=== PATIENT | female | born 1970 | race African-American/Black ===

== ENCOUNTER 2019-12-04 23:14 | Emergency (ER) | payer OTHER ==
[2019-12-04 23:35] VITALS: BP 140/73; PULSE 69; BMI 58.4
[2019-12-04 23:46] VITALS: TEMP 98.1
--- NOTE | 2019-12-05 00:06 | PDOC ---
History of Present Illness - General Chief Complaint: Chest Pain Stated Complaint: DIFFICULTY BREATHING - History of Present Illness Initial Comments: 49 YOF h/o asthma, CHF, diabetes, pneumonia, GERD, presents with CP and SOB of 1 day duration. Patient reports that she has been hospitalized 7 times since August for pneumonia. Each time she was tested for COVID-19 and found to be negative. She was d/cd to [facility] for subacute rehab following her most recent hospitalization. Today after dinner she began to experience CP and SOB and EMS was called. Per EMS patient received a CXR earlier today which was normal. EMS performed EKG in field which was wnl. Vitals at the scene were BP 150s/90s, HR 70, O2 100% 2L O2 via nasal canula, patient did not appear to be tachypneic according to EMS. Given her history and symptoms she was brought into the ED for evaluation. Patient also reports some nausea and chills and chronic leg pain. She denies fever. Constitutional: No Weight Change, No Fever, No Night Sweats, No Fatigue, No Malaise ENT/Mouth: No Hearing Changes, No Ear Pain, No Nasal Congestion, No Sinus Pain, No Hoarseness, No sore throat, No Rhinorrhea, No Swallowing Difficulty Eyes: No Eye Pain, No Swelling, No Redness, No Foreign Body, No Discharge, No Vision Changes Cardiovascular: No Chest Pain, No SOB, No PND, No Dyspnea on Exertion, No Orthopnea, No Claudication, No Edema, No Palpitations Respiratory: Yes Cough, Yes Sputum, No Wheezing, No Smoke Exposure, Yes Dyspnea Gastrointestinal: Yes Nausea, No Vomiting, No Diarrhea, No Constipation, No Pain, No Heartburn, No Anorexia, No Dysphagia, No Hematochezia, No Melena, No Flatulence, No Jaundice Genitourinary: No Dysmenorrhea, No DUB, No Dyspareunia, No Dysuria, No Urinary Frequency, No Hematuria, No Urinary Incontinence, No Urgency, No Flank Pain, No Urinary Flow Changes, No Hesitancy Musculoskeletal: No Arthralgias, No Myalgias, No Joint Swelling, No Joint Stiffness, No Back Pain, No Neck Pain, No Injury History Skin: No Skin Lesions, No Pruritis, No Hair Changes, No Breast/Skin Changes, No Nipple Discharge Neuro: No Weakness, No Numbness, No Paresthesias, No Loss of Consciousness, No Syncope, No Dizziness, No Headache, No Coordination Changes, No Recent Falls Psych: No Anxiety/Panic, No Depression, No Insomnia, No Personality Changes, No Delusions, No Rumination, No SI/HI/AH/VH, No Social Issues, No Memory Changes, No Violence/Abuse Hx., No Eating Concerns Heme/Lymph: No Bruising, No Bleeding, No Transfusions History, No Lymphadenopathy Endocrine: No Polyuria, No Polydipsia, No Temperature Intolerance 12/05/19 00:06 Past History - Medical History Allergies/Adverse Reactions: Allergies Allergy/AdvReac Type Severity Reaction Status Date / Time No Known Allergies Allergy Unverified 12/04/19 23:16 - Psycho-Social/Smoking History Smoking History: Never smoked Have you smoked in the past 12 months: No Information on smoking cessation initiated: No - Substance Abuse Hx (Audit-C & DAST Scrn) How often the patient has a drink containing alcohol: Never Score: In Men: 4 or > Positive; In Women: 3 or > Positive: 0 Screen Result (Pos requires Nsg. Audit-10AR): Negative In the last yr the pt used illegal drug/Rx for NonMed reason: No Score: Yes response is considered Positive: 0 Screen Result (Positive result requires Nsg. DAST-10): Negative *Physical Exam - Vital Signs Last Vital Signs Temp Pulse Resp BP Pulse Ox 98.1 F 69 20 140/73 98 12/04/19 23:46 12/04/19 23:16 12/04/19 23:16 12/04/19 23:16 12/04/19 23:16 - Physical Exam General Appearance: Yes: Nourished, Appropriately Dressed, Moderate Distress, Obese HEENT: positive: EOMI, BOB, Normal Voice Neck: positive: Trachea midline, Normal Thyroid Respiratory/Chest: positive: Chest Tender, Lungs Clear, Normal Breath Sounds, Other (Patient coughs intermittently producing sputum that is clear. ) Cardiovascular: positive: Regular Rhythm, Regular Rate, S1, S2 Gastrointestinal/Abdominal: positive: Normal Bowel Sounds, Flat, Soft Musculoskeletal: positive: Normal Inspection Extremity: positive: Normal Capillary Refill, Normal Inspection, Normal Range of Motion Integumentary: positive: Normal Color, Dry, Warm ED Treatment Course - LABORATORY CBC & Chemistry Diagram: 12/05/19 00:19 12/05/19 00:19 Medical Decision Making - Medical Decision Making 49 YOF h/o asthma, CHF, diabetes, pneumonia, GERD, presents with CP and SOB of 1 day duration. Patient reports that she has been hospitalized 7 times since August for pneumonia. Each time she was tested for COVID-19 and found to be negative. She was d/cd to [facility] for subacute rehab following her most recent hospitalization. Today after dinner she began to experience CP and SOB and EMS was called. Per EMS patient received a CXR earlier today which was normal. EMS performed EKG in field which was wnl. Vitals at the scene were BP 150s/90s, HR 70, O2 100% 2L O2 via nasal canula, patient did not appear to be tachypneic according to EMS. Given her history and symptoms she was brought into the ED for evaluation. Patient also reports some nausea and chills and chronic leg pain. She denies fever. Vitals were stable on arrival. Patient is afebrile Exam reveals patient who is coughing intermittently producing sputum that is clear. ddx includes but is not limited to: pneumonia, CHF exacerbation, asthma exacerbation, GERD. Plan: CBC, CMP, COVID swab, cardiac profile, CXR, EKG, BNP, heart score. Reassess: patients labs and EKG were wnl, her CXR revealed significant cardiomegaly consistent with previous diagnosis of heart failure. heart score is 2. Dispo: will discharge patient back to nursing facility with return precautions. 12/05/19 02:09 Discharge - Discharge Information Problems reviewed: Yes Clinical Impression/Diagnosis: Cough Condition: Good - Admission No - Follow up/Referral Referrals: Kathy Langford MD [Primary Care Provider] - - Patient Discharge Instructions Patient Printed Discharge Instructions: DI for Chest Pain Additional Instructions: You were seen in the emergency department for shortness of breath and chest pain. You received EKG, chest x ray, and labs all of which were normal. You were considered medically stable and ready to return back to your nursing facility. Please return if you experience worsening of your symptoms. - Post Discharge Activity
[2019-12-05 00:39] LABS: BASO % 0.9 % (0-2.0); EOS % 2.2 % (0-4.5); HEMATOCRIT 32.8 % (32.4-45.2); HEMOGLOBIN 10.5 GM/dL (10.7-15.3); LYMPH % 27.3 % (8-40); MCH 26.7 pg (25.7-33.7); MEAN CELL VOLUME 83.4 fl (80-96); MEAN PLT VOLUME 9.4 fl (7.5-11.1); MONO % 6.9 % (3.8-10.2); NEUT % 62.7 % (42.8-82.8); PLATELET COUNT 246 K/MM3 (134-434); RBC 3.94 M/mm3 (3.60-5.2); RDW 16.1 % (11.6-15.6); WHITE BLOOD COUNT 7.3 K/mm3 (4.0-10.0)
[2019-12-05] MEDS ORDERED: LORATADINE 10 MG TABLET PO ONE (01:07)
[2019-12-05 01:08] LABS: ALBUMIN 3.2 g/dl (3.4-5.0); ALK PHOS 78 U/L (45-117); ANION GAP 8 MMOL/L (8-16); BILIRUBIN,TOTAL 0.4 mg/dL (0.2-1); BLOOD UREA NITROGEN 19.4 mg/dL (7-18); CALCIUM 9.1 mg/dL (8.5-10.1); CHLORIDE 107 mmol/L (98-107); CO2 27 mmol/L (21-32); CREATININE 0.8 mg/dL (0.55-1.3); GLUCOSE,RANDOM 203 mg/dL (74-106); N-TERMINAL BNP 64.7 pg/ml (5-125); POTASSIUM 4.2 mmol/L (3.5-5.1); SGOT/AST 13 U/L (15-37); SGPT/ALT 24 U/L (13-61); SODIUM 142 mmol/L (136-145); TOT PROT 6.7 g/dl (6.4-8.2)
--- NOTE | 2019-12-05 01:10 | PDOC ---
Attending Attestation - Resident Resident Name: Cayden Arango - ED Attending Attestation I have performed the following: I have examined & evaluated the patient, The case was reviewed & discussed with the resident, I agree w/resident's findings & plan, Exceptions are as noted - HPI HPI: 12/05/19 02:34 See resident HPI - Physicial Exam PE: 12/05/19 02:35 Agree with documented exam - Medical Decision Making 12/05/19 02:36 Non-pleuritic cp, sob, no fever, cough productive of clear sputum consider pna, chf, infection, less likely acs f/u cxr, ekg, lags dispo per clinical course No acute pathology, no infection, ekg non-ischemic, labs wnl [facility] Discharge - Discharge Information Problems reviewed: Yes Clinical Impression/Diagnosis: Cough Condition: Good - Follow up/Referral Referrals: Kathy Langford MD [Primary Care Provider] - - Patient Discharge Instructions Patient Printed Discharge Instructions: DI for Chest Pain Additional Instructions: You were seen in the emergency department for shortness of breath and chest pain. You received EKG, chest x ray, and labs all of which were normal. You were considered medically stable and ready to return back to your nursing facility. Please return if you experience worsening of your symptoms. - Post Discharge Activity
[2019-12-05] MEDS ORDERED: LORATADINE 10 MG TABLET ONE (01:23)
--- NOTE | 2019-12-05 11:11 | EKG ---
Test Reason : Blood Pressure : / mmHG Vent. Rate : 069 BPM Atrial Rate : 069 BPM P-R Int : 130 ms QRS Dur : 076 ms QT Int : 388 ms P-R-T Axes : 034 -07 038 degrees QTc Int : 415 ms NORMAL SINUS RHYTHM LOW VOLTAGE QRS NO PREVIOUS ECGS AVAILABLE Confirmed by SAM ARREGUIN MD ([id number]) on 12/05/2019 11:11:25 AM Referred By: Confirmed By:SAM ARREGUIN MD
== END 2019-12-05 03:54 ==
LOC: JER 23:14
DX: R05 Cough (principal)
CPT/HCPCS: 36415; 71045-TC-FY; 80053; 82550; 83880; 84484; 85025; 93005; 93010; 99285-25; U0003

== ENCOUNTER 2019-12-06 09:49 | Emergency (ER) | payer OTHER ==
[2019-12-06 10:04] VITALS: TEMP 98; BMI 58.4
[2019-12-06] MEDS ORDERED: ALBUTEROL SO4 2.5/IPRATROPIUM 0.5 INH SOL 3 ML VIAL.NEB. NEB ONE (10:08)
[2019-12-06] MEDS ORDERED: LIDOCAINE 5% TOPICAL PATCH TP ONE (10:35)
[2019-12-06] MEDS ORDERED: LORATADINE 10 MG TABLET PO ONE (10:35)
[2019-12-06] MEDS ORDERED: ALBUTEROL SO4 HFA INHALER IH ONE ×2 (10:36→10:54)
--- NOTE | 2019-12-06 10:54 | PDOC ---
History of Present Illness - General Chief Complaint: Shortness of Breath Stated Complaint: SHORTNESSS OF BREATH Time Seen by Provider: 12/06/19 09:58 - History of Present Illness Initial Comments: 12/06/19 10:39 49F PMH asthma, DM, CHF (states resolved), GERD, morbid obesity, recent admission for non-Covid pneumonia discharged two weeks ago to [facility], and presented to ED two days prior with CP/SOB and discharged, who called EMS this morning after seeing specks of blood after coughing and requesting change in NH. States she felt chest tightness and SOB last night and had non-bloody vomit x2. This morning had more SOB and wheezing, improved with rescue inhaler, and saw specs of blood in her cough that she has had since pneumonia started. Also complains of chronic L shoulder pain, right knee pain, and left calf pain. ROS negative for systemic symptoms. GENERAL/CONSTITUTIONAL: No fever or chills. No weakness. HEAD, EYES, EARS, NOSE AND THROAT: No change in vision. No ear pain or discharge. No sore throat. CARDIOVASCULAR: Chest tightness and SOB RESPIRATORY: SOB, wheezing, cough GASTROINTESTINAL: No nausea, vomiting, diarrhea or constipation. GENITOURINARY: No dysuria, frequency, or change in urination. MUSCULOSKELETAL: chronic shoulder pain. right knee pain, left calf pain SKIN: No rash NEUROLOGIC: No headache, vertigo, loss of consciousness, or change in strength/sensation. ENDOCRINE: No increased thirst. No abnormal weight change HEMATOLOGIC/LYMPHATIC: No anemia, easy bleeding, or history of blood clots. ALLERGIC/IMMUNOLOGIC: No hives or skin allergy. PE Vital Signs Period Temp Pulse Resp BP Sys/Pool Pulse Ox Last 24 Hr 98 F 80 22 110/87 99 GENERAL: Awake, alert, and fully oriented, in no acute distress HEAD: No signs of trauma, normocephalic, atraumatic EYES: PERRLA, EOMI, sclera anicteric, conjunctiva clear ENT: Auricles normal inspection, hearing grossly normal, nares patent, oropharynx clear without exudates. Moist mucosa NECK: Normal ROM, supple, no lymphadenopathy, JVD, or masses LUNGS: No distress, speaks full sentences, clear to auscultation bilaterally but greatly reduced breath sounds likely secondary to obesity HEART: Regular rate and rhythm, normal S1 and S2, no murmurs, rubs or gallops, peripheral pulses normal and equal bilaterally. ABDOMEN: Soft, nontender, normoactive bowel sounds. No guarding, no rebound. No masses EXTREMITIES : 1+ b/l LE edema, chronic venous stasis changes, small area of tender erythema on right mercado. Left calf tenderness. Left shoulder and left neck paraspinal tenderness. NEUROLOGICAL: Cranial nerves II through XII grossly intact. Normal speech, no focal sensorimotor deficits SKIN: Warm, Dry, normal turgor Assessment and Plan 49F PMH asthma, DM, CHF (states resolved), GERD, morbid obesity, recent admission for non-Covid pneumonia discharged two weeks ago to [facility], and presented to ED two days prior with CP/SOB and discharged, who called EMS this morning after seeing specks of blood after coughing and requesting change in NH. Her SOB greatly improved with rescue inhaler and no more specs of blood in cough. Likely post-infectious cough causing irritation and minor bleeding. Differential includes cancer and TB, but less likely given lack of systemic symptoms. SOB and chest tightness likely from asthma. ACS and PE not likely given nature of symptoms and stable vitals. Small erythema on R mercado may represent cellulitis. -EKG, CXR, BMP, CBC -claritin (pt request), lidocaine patch for shoulder (pt request) -treat for possible cellulitis with clindamycin Reassess: Hb not decreased from yesterday, BMP unremarkable, EKG low voltage NSR w/o ischemic changes, CXR with possible atelectasis unchanged from yesterday. SOB improved. No more blood in sputum. DC back to [place] with 7 day course of clindamycin for cellulitis. 12/06/19 10:59 12/06/19 11:24 12/06/19 11:33 12/06/19 11:37 Past History - Medical History Allergies/Adverse Reactions: Allergies Allergy/AdvReac Type Severity Reaction Status Date / Time Penicillins Allergy Verified 12/06/19 10:05 pollen extracts Allergy Verified 12/06/19 10:05 Home Medications: Ambulatory Orders Acetaminophen [Tylenol] 650 mg PO QID PRN 12/06/19 Albuterol 0.083% Nebulizer Machelle [Ventolin 0.083% Nebulizer Soln -] 1 neb NEB Q6H PRN 12/06/19 Apixaban [Eliquis -] 2.5 mg PO BID 12/06/19 Baclofen 10 mg PO TID 12/06/19 Benzonatate 200 mg PO TID 12/06/19 Budesonide/Formeterol Fumarate [SYMBICORT 160/4.5mcg -] 1 inh PO BID 12/06/19 Chrm/Vineg/Bit-Orang Peel/Gr T [Apple Cider Vinegar Plus Tb] 1 each PO BID 12/06/19 Clindamycin [Cleocin -] 450 mg PO Q8H #63 capsule 12/06/19 Garlic 1 each PO BID 12/06/19 Insulin (LOG) Aspart [NovoLOG -] 15 units SQ TID 12/06/19 Insulin Degludec [Tresiba Flextouch U-100] 40 unit SQ DAILY 12/06/19 Lactobacillus Acidophilus [Digestive Probiotic] 1 each PO BID 12/06/19 Lidocaine 5% Patch [Lidoderm Patch -] 1 patch TP DAILY 12/06/19 Lisinopril 10 mg PO DAILY 12/06/19 Multivitamin [Multiple Vitamins] 1 each PO DAILY 12/06/19 Prednisolone [Millipred] 5 mg PO ASDIR 12/06/19 Tiotropium [place] [Spiriva Respimat] 4 gm IH DAILY 12/06/19 Asthma: Yes COPD: No CHF: Yes Diabetes: Yes GI Disorders: Yes (GERD) HTN: Yes Other medical history: morbid obesity, sleep apnea, - Psycho-Social/Smoking History Smoking History: Never smoked Have you smoked in the past 12 months: No - Substance Abuse Hx (Audit-C & DAST Scrn) How often the patient has a drink containing alcohol: Never Score: In Men: 4 or > Positive; In Women: 3 or > Positive: 0 Screen Result (Pos requires Nsg. Audit-10AR): Negative In the last yr the pt used illegal drug/Rx for NonMed reason: No Score: Yes response is considered Positive: 0 Screen Result (Positive result requires Nsg. DAST-10): Negative *Physical Exam - Vital Signs Last Vital Signs Temp Pulse Resp BP Pulse Ox 98 F 80 22 H 110/87 99 12/06/19 09:58 12/06/19 09:58 12/06/19 09:58 12/06/19 09:58 12/06/19 09:58 ED Treatment Course - LABORATORY CBC & Chemistry Diagram: 12/06/19 11:00 12/06/19 11:00 - RADIOLOGY Radiology Studies Ordered: Category Date Time Status CXRPORT [CHEST X-RAY PORTABLE*] [RAD] Stat Radiology 12/06/19 10:34 Ordered - Medications Given in the ED: ED Medications Discontinued Medications Generic Name Dose Route Start Last Admin Trade Name Freq PRN Reason Stop Dose Admin Albuterol/Ipratropium 1 amp 12/06/19 10:08 12/06/19 10:17 Duoneb - NEB 12/06/19 10:09 Not Given ONCE ONE Discharge - Discharge Information Problems reviewed: Yes Clinical Impression/Diagnosis: Cough, SOB (shortness of breath), Bloody sputum Condition: Improved Disposition: [facility] - Admission No - Additional Discharge Information Prescriptions: Clindamycin [Cleocin -] 450 mg PO Q8H #63 capsule - Follow up/Referral Referrals: Kathy Langford MD [Primary Care Provider] - - Patient Discharge Instructions Patient Printed Discharge Instructions: DI for Asthma -- Adult, DI for Cellulitis -- Adult Additional Instructions: You were seen in the ER for blood in your sputum and shortness of breath. The blood is likely from the cough you have been having since diagnosed with pneumonia. the shortness of breath is likely from asthma. Your EKG, chest xray, and labs were unchanged from your ED visit yesterday. Please seek emergent care if you have continued or worsening shortness of breath, blood in your sputum, fe mandy, chest pain, or any other reason. - Post Discharge Activity
[2019-12-06] MEDS ORDERED: LORATADINE 10 MG TABLET ONE (10:55)
[2019-12-06] MEDS ORDERED: LIDOCAINE 5% TOPICAL PATCH ONE (10:55)
[2019-12-06 11:08] LABS: BASO % 1.2 % (0-2.0); EOS % 2.1 % (0-4.5); HEMATOCRIT 32.5 % (32.4-45.2); HEMOGLOBIN 10.4 GM/dL (10.7-15.3); LYMPH % 36.8 % (8-40); MCH 26.5 pg (25.7-33.7); MCHC 31.9 g/dl (32.0-36.0); MEAN CELL VOLUME 82.9 fl (80-96); MEAN PLT VOLUME 9.6 fl (7.5-11.1); MONO % 8.6 % (3.8-10.2); NEUT % 51.3 % (42.8-82.8); PLATELET COUNT 215 K/MM3 (134-434); RBC 3.92 M/mm3 (3.60-5.2); RDW 16.2 % (11.6-15.6); WHITE BLOOD COUNT 5.8 K/mm3 (4.0-10.0)
[2019-12-06] MEDS ORDERED: predniSONE 20 MG TABLET (UD) PO ONE (11:08)
[2019-12-06] MEDS ORDERED: CLINDAMYCIN HCL 150 MG CAPSULE (FP) PO ONE (11:10)
--- NOTE | 2019-12-06 11:10 | PDOC ---
Documentation entered by Salvador Vazquez SCRIBE, acting as scribe for Slime Lagos MD. Slime Lagos MD: This documentation has been prepared by the Taylor frazier Aaron, SCRIBE, under my direction and personally reviewed by me in its entirety. I confirm that the documentation accurately reflects all work, treatment, procedures, and medical decision making performed by me. Attending Attestation - Resident Resident Name: OnirosaleydiJean Marie - ED Attending Attestation I have performed the following: I have examined & evaluated the patient, I agree w/resident's findings & plan, Exceptions are as noted - HPI HPI: The patient is a 49 year old female with a significant PMH of asthma, CHF, diabetes, pneumonia, GERD who presents to the emergency department BIBA for SOB and cough x 2weeks, progressively getting worse. Pt was seen here in the ED 12/03 for similar symptoms and was discharged back to [facility] afer labs were wnl and cxr was consistent with previously diagnosed heart failure. Patient describes SOB related to recent recovery from bacterial pneumonia (prescribed antibiotics). Patient claims she has been on oxygen as needed since the pneumonia and has trouble breathing without it. Patient notes this morning having two episodes of nbnb emesis followed by possible small speck of blood in sputum. Pt used her rescue inhaler prior to arrival which slightly improved her symptoms. Patient also noted sharp chest pain present last night while lying on her R side, worsened by sitting up. The patient denies fever, chills, diarrhea, constipation, or urinary symptoms. Patient denies any other symptoms. Allergies: Penicillins, pollen extracts Past surgical history: thyroid surgery PCP: located in the [place] Dr. Langford while at [place]. - Physicial Exam PE: 12/06/19 10:55 General: morbidly obese female, NAD Chest: CTAB, good air entry, no audible wheezes, no crackles, speaking in full sentences, no accessory muscle use CVS: + s1 s2 Extremities: warm and well perfused, no pitting edema, ~[id number] area of erythema and increased warmth with ttp but no fluctuance induration or crepitus - Medical Decision Making 12/06/19 11:02 49 yo F with cough with a few specks of blood in sputum likely 2/2 repeated coughing, possible asthma excaerbation (patient with coughing upon arrival and possible cough variant asthma), doubt ACS and EKG without ischemic changes, also doubt PE as symptoms improved with her rescue inhaler at home. Patient also with evidence of mild cellulitis. Plan: -labs -cxr -albuterol/ipratropium -steroids -pain control as needed -clinda for mild cellulitis -reassess This clinical encounter is taking place during a federal and state health care emergency attributable to the novel [place] Virus pandemic. The [place] of the Department of Health and Human Services has declared, pursuant to the Public Health Service Act 319F-3 (42 U.S.C. 247d-6d), that a covered persons activities related to medical countermeasures against COVID-19 will be immune from liability under Federal and State law. Discharge - Discharge Information Problems reviewed: Yes Clinical Impression/Diagnosis: Cough, SOB (shortness of breath), Bloody sputum Condition: Improved Disposition: LONG-TERM FACILITY - Additional Discharge Information Prescriptions: Clindamycin [Cleocin -] 450 mg PO Q8H #63 capsule - Follow up/Referral Referrals: Kathy Langford MD [Primary Care Provider] - - Patient Discharge Instructions Patient Printed Discharge Instructions: DI for Cellulitis -- Adult, DI for Asthma -- Adult Additional Instructions: You were seen in the ER for blood in your sputum and shortness of breath. The blood is likely from the cough you have been having since diagnosed with pneumonia. the shortness of breath is likely from asthma. Your EKG, chest xray, and labs were unchanged from your ED visit yesterday. Please seek emergent care if you have continued or worsening shortness of breath, blood in your sputum, fever, chest pain, or any other reason. - Post Discharge Activity
[2019-12-06] MEDS ORDERED: CLINDAMYCIN HCL 150 MG CAPSULE (FP) ONE (11:20)
[2019-12-06] MEDS ORDERED: predniSONE 20 MG TABLET (UD) ONE (11:20)
[2019-12-06 11:25] LABS: BLOOD UREA NITROGEN 16.4 mg/dL (7-18); CALCIUM 8.7 mg/dL (8.5-10.1); CREATININE 0.8 mg/dL (0.55-1.3); POTASSIUM 4.3 mmol/L (3.5-5.1)
[2019-12-06] MEDS ORDERED: Insulin (LOG) Aspart 100 UNITS/ML VIAL SQ ONE (13:13)
[2019-12-06 15:27] VITALS: BP 150/75; PULSE 76
[2019-12-06] MEDS ORDERED: LIDOCAINE PATCH REMOVAL MC SCH (22:00)
--- NOTE | 2019-12-07 17:30 | EKG ---
Test Reason : Blood Pressure : / mmHG Vent. Rate : 067 BPM Atrial Rate : 067 BPM P-R Int : 128 ms QRS Dur : 076 ms QT Int : 386 ms P-R-T Axes : 041 -05 021 degrees QTc Int : 407 ms NORMAL SINUS RHYTHM LOW VOLTAGE QRS BORDERLINE ECG WHEN COMPARED WITH ECG OF 05-DEC-2019 00:47, NO SIGNIFICANT CHANGE WAS FOUND Confirmed by MD Obrien Edward ([id number]) on 12/07/2019 5:29:40 PM Referred By: Confirmed By:Rakesh Obrien MD
== END 2019-12-06 15:40 ==
LOC: JER 09:49 → SUPCPDRO 09:49 → JER 15:40
PROC: 3E0F7GC Introduction of Other Therapeutic Substance into Respiratory Tract, Via Natural or Artificial Opening (ICD-10-PCS; principal; 2019-12-06)
DX: R05 Cough (principal); R06.02 Shortness of breath; R04.2 Hemoptysis
CPT/HCPCS: 36415; 71045-TC-FY; 80048; 82962; 85025; 93005; 93010; 99285-25

== ENCOUNTER 2019-12-13 22:36 | Inpatient (IN) | payer OTHER ==
--- NOTE | 2019-12-13 23:01 | PDOC ---
History of Present Illness - General Stated Complaint: DIFFICULTY BREATHING Time Seen by Provider: 12/13/19 22:47 - History of Present Illness Initial Comments: 49F PMH asthma, DM, CHF (states resolved), GERD, morbid obesity, presented to the ED by ambulance for 3 days of worsening SOB. she denies chest pain, fever, chill, N/V/abdominal pain. She kept saying she had fluid in her breast and her lungs. She used her inhalers, and it helped with the SOB. She denies hx of blood clots. Patient recent admitted for non-Covid pneumonia discharged two weeks ago to [facility]. Patient also admitted to being treated for her leg cellulitist which resulted with ongoing antibiotics via left pigtail on her arm. ROS: GENERAL/CONSTITUTIONAL: No fever or chills. No weakness. HEAD, EYES, EARS, NOSE AND THROAT: No change in vision. No ear pain or discharge. No sore throat. CARDIOVASCULAR: no Chest tightness , +SOB RESPIRATORY: SOB, wheezing, cough GASTROINTESTINAL: No nausea, vomiting, diarrhea or constipation. GENITOURINARY: No dysuria, frequency, or change in urination. MUSCULOSKELETAL: chronic shoulder pain. right knee pain, left leg pain. SKIN: No rash NEUROLOGIC: No headache, vertigo, loss of consciousness, or change in strength/sensation. ENDOCRINE: No increased thirst. No abnormal weight change HEMATOLOGIC/LYMPHATIC: No anemia, easy bleeding, or history of blood clots. ALLERGIC/IMMUNOLOGIC: No hives or skin allergy. PE: GENERAL: Awake, alert, and fully oriented, in no acute distress on 2L oxygen NC HEAD: No signs of trauma, normocephalic, atraumatic EYES: PERRLA, EOMI, sclera anicteric, conjunctiva clear ENT: Auricles normal inspection, hearing grossly normal, nares patent, oropharynx clear without exudates. Moist mucosa NECK: Normal ROM, supple, no lymphadenopathy, JVD, or masses LUNGS: No distress, speaks full sentences, mild wheeze bilaterally HEART: Regular rate and rhythm, normal S1 and S2, no murmurs, rubs or gallops, peripheral pulses normal and equal bilaterally. ABDOMEN: Soft, nontender, normoactive bowel sounds. No guarding, no rebound. No masses EXTREMITIES : 1+ b/l LE edema, chronic venous stasis changes, Left mercado tenderness upon palpation, skin is not warm. Left shoulder and left neck paraspinal tenderness. NEUROLOGICAL: Cranial nerves II through XII grossly intact. Normal speech, no focal sensorimotor deficits SKIN: Warm, Dry, normal turgor Assessment and Plan 49F PMH asthma, DM, CHF (states resolved), GERD, morbid obesity, recent admission for non-Covid pneumonia discharged two weeks ago to [facility], and presented to ED 3 days of SOB. -EKG, CXR, BMP, CBC, trop, ddimer. -duoneb ( coughing, hx of asthma). Past History - Medical History Allergies/Adverse Reactions: Allergies Allergy/AdvReac Type Severity Reaction Status Date / Time Penicillins Allergy Verified 12/06/19 10:05 pollen extracts Allergy Verified 12/06/19 10:05 Home Medications: Ambulatory Orders Acetaminophen [Tylenol] 650 mg PO QID PRN 12/06/19 Albuterol 0.083% Nebulizer Machelle [Ventolin 0.083% Nebulizer Soln -] 1 neb NEB Q6H PRN 12/06/19 Apixaban [Eliquis -] 2.5 mg PO BID 12/06/19 Baclofen 10 mg PO TID 12/06/19 Benzonatate 200 mg PO TID 12/06/19 Budesonide/Formeterol Fumarate [SYMBICORT 160/4.5mcg -] 1 inh PO BID 12/06/19 Chrm/Vineg/Bit-Orang Peel/Gr T [Apple Cider Vinegar Plus Tb] 1 each PO BID 12/06/19 Clindamycin [Cleocin -] 450 mg PO Q8H #63 capsule 12/06/19 Garlic 1 each PO BID 12/06/19 Insulin (LOG) Aspart [NovoLOG -] 15 units SQ TID 12/06/19 Insulin Degludec [Tresiba Flextouch U-100] 40 unit SQ DAILY 12/06/19 Lactobacillus Acidophilus [Digestive Probiotic] 1 each PO BID 12/06/19 Lidocaine 5% Patch [Lidoderm Patch -] 1 patch TP DAILY 12/06/19 Lisinopril 10 mg PO DAILY 12/06/19 Multivitamin [Multiple Vitamins] 1 each PO DAILY 12/06/19 Prednisolone [Millipred] 5 mg PO ASDIR 12/06/19 Tiotropium [place] [Spiriva Respimat] 4 gm IH DAILY 12/06/19 Asthma: Yes COPD: No CHF: Yes Diabetes: Yes GI Disorders: Yes (GERD) HTN: Yes - Psycho-Social/Smoking History Smoking History: Never smoked Have you smoked in the past 12 months: No ED Treatment Course - LABORATORY CBC & Chemistry Diagram: 12/14/19 03:00 12/14/19 03:00 Medical Decision Making - Medical Decision Making 12/14/19 00:16 sign out was given to night team. Discharge - Discharge Information Problems reviewed: Yes Clinical Impression/Diagnosis: Breast pain, Chronic cough, Leg pain Condition: Stable - Follow up/Referral - Patient Discharge Instructions - Post Discharge Activity
[2019-12-13] MEDS ORDERED: ALBUTEROL SO4 2.5/IPRATROPIUM 0.5 INH SOL 3 ML VIAL.NEB. NEB ONE ×2 (23:16→23:30)
--- NOTE | 2019-12-13 23:22 | PDOC ---
Documentation entered by Martina Alejandra SCRIBE, acting as scribe for Guillermina Mercer MD. Guillermina Mercer MD: This documentation has been prepared by the scribe, Martina Alejandra SCRIBE, under my direction and personally reviewed by me in its entirety. I confirm that the documentation accurately reflects all work, treatment, procedures, and medical decision making performed by me. Attending Attestation - Resident Resident Name: Isaiah Dunaway - ED Attending Attestation I have performed the following: I have examined & evaluated the patient, The case was reviewed & discussed with the resident, I agree w/resident's findings & plan - HPI HPI: 12/13/19 23:10 Ms. Bonnie Hughes is a 49-year-old female with a past medical history significant for asthma, DM, GERD, and morbid obesity who presents to the emergency de partment from [facility] via EMS for 3 days of shortness of breath. The patient has a PICC line to the left arm for antibiotics use for left leg cellulitis. Denies fever, chills, chest pain, cough. Denies history of blood clots. Allergies: Penicillin. Pollen extract. Past Medical History: asthma, HTN, DM, CHF (per prior records, resolved). Social history: Lives at [facility]. No tobacco, ETOH or drug use. Surgical history: Left arm PICC line. Meds: as documented in EMR PMD: Dr. Langford. - Physicial Exam PE: 12/13/19 23:13 Agree with the resident's HPI and PE as documented in the electronic medical record. NAD, morbidly obese, EOMI, PERRL, nl conjunctiva, anicteric; neck supple. no respiratory distress, decreased breath sounds b/l, poor inspiratory effort, abdomen soft nontender. very obese MCCARTHY x4, no focal neuro deficits. No peripheral edema. normal color for ethnicity, WWP. venous stasis changes to b/l LE RLE tenderness, no warmth or erythema +left breast very large, no palp fluid collection or erythema or firmness/induration LUE picc line in place 12/13/19 23:38 12/13/19 23:42 - Medical Decision Making 12/13/19 23:20 Of note patient has had 2 prior ED visits about 1 week ago for similar complaints of chest pain and shortness of breath, on review of ED records she has been hospitalized multiple times since August 2019 for pneumonia. She has been also tested negative for COVID-19 multiple times and has been in [facility] for subacute rehab following her most recent hospitalization. She has had laboratory results performed with normal CBC/chemistries negative COVID swab, negative troponin/cardiac profile EKG. Also has had negative BNP so unlikely to be cardiac failure She has also been given clindamycin for mild cellulitis of her lower extremities, this could also be chronic venous stasis changes. vitals today_wnl Vital Signs Temp Pulse Resp BP Pulse Ox 98.3 F 71 20 137/72 98 12/13/19 23:19 12/13/19 23:19 12/13/19 23:19 12/13/19 23:19 12/13/19 23:19 DDx SOB: ACS, PE, PTX, CHF, COPD exac, pulmonary edema, pleurisy, pneumonia, viral syndrome. effusion. anemia, electrolyte/metabolic derangements. plan for labs/cbc, cmp, trop, d dimer (consider PE as pt has not had this checked, and given recent hospitalizations/immobilization, risk of PE considered) no need for repeat covid swab exam is unremarkable, limitations due to body habitus. no palp abscess or s/s mastitis no systemic features BLE duplex indicated, as pt complaining of calf tenderness; though finished course of clindamycin last week and more venous dermatitis changes. duoneb for her cough, h/o asthma s/o pending labs/workup, reeval, dimer and ultrasounds. to Dr Patel overnight attg. 12/13/19 23:39 12/13/19 23:57 Discharge - Discharge Information Problems reviewed: Yes Clinical Impression/Diagnosis: Breast pain, Chronic cough, Leg pain Condition: Stable - Follow up/Referral - Patient Discharge Instructions - Post Discharge Activity
--- NOTE | 2019-12-14 00:29 | PDOC ---
*Physical Exam - Vital Signs Last Vital Signs Temp Pulse Resp BP Pulse Ox 98.3 F 71 20 137/72 98 12/13/19 23:19 12/13/19 23:19 12/13/19 23:19 12/13/19 23:19 12/13/19 23:19 ED Treatment Course - LABORATORY CBC & Chemistry Diagram: 12/14/19 03:00 12/14/19 03:00 - Medications Given in the ED: ED Medications Discontinued Medications Generic Name Dose Route Start Last Admin Trade Name Freq PRN Reason Stop Dose Admin Albuterol/Ipratropium 1 amp 12/13/19 23:16 12/13/19 23:50 Duoneb - NEB 12/13/19 23:17 1 amp ONCE ONE Administration Medical Decision Making - Medical Decision Making 12/14/19 00:26 49 y/o F hx of htn, diabetes. asthma coming from [facility] here for sob admitted for pneumonia and cellulitis 2 wks ago. picc line for abx for cellulitis tx Dr morales's hpI "49F PMH asthma, DM, CHF (states resolved), GERD, morbid obesity, presented to the ED by ambulance for 3 days of worsening SOB. she denies chest pain, fever, chill, N/V/abdominal pain. She kept saying she had fluid in her breast and her lungs. She used her inhalers, and it helped with the SOB. She denies hx of blood clots. Patient recent admitted for non-Covid pneumonia discharged two weeks ago to [facility]. Patient also admitted to being treated for her leg cellulitist which resulted with ongoing antibiotics via left pigtail on her arm." 12/14/19 00:28 12/14/19 01:21 ultrasound. 12/14/19 03:08 CXR: cardiomegaly, findings concerning for pulmonary edema. no fractures noted(my read) breast ultrsound FINDINGS: Multifocal soft tissue edema and nonloculated fluid is noted, likely representing infected. There is a 3.5 x 1.5 cm triangular focus of fluid which could indicate abscess, but it is not clearly loculated. IMPRESSION: Probable infection with possible 3.5 x 1.5 cm abscess, although the fluid may not be loculated. EXAM: DUPLEX VASCULAR US-2 LEGS HISTORY: Rule out DVT COMPARISON: None. FINDINGS: Evaluation somewhat limited by patient body habitus. There is no DVT in the right or left lower extremity. IMPRESSION: No DVT pt admitted for further management. 12/14/19 04:09 12/14/19 04:14 12/14/19 20:15 Discharge - Discharge Information Problems reviewed: Yes Clinical Impression/Diagnosis: Breast pain, Chronic cough, Leg pain Condition: Stable - Follow up/Referral - Patient Discharge Instructions - Post Discharge Activity
[2019-12-14] MEDS ORDERED: ACETAMINOPHEN WITH CODEINE 300MG/30MG TABLET PO ONE (00:43)
[2019-12-14] MEDS ORDERED: ACETAMINOPHEN WITH CODEINE 300MG/30MG TABLET ONE (01:04)
--- NOTE | 2019-12-14 02:48 | PDOC ---
*Physical Exam - Vital Signs Last Vital Signs Temp Pulse Resp BP Pulse Ox 98.3 F 71 20 137/72 98 12/13/19 23:19 12/13/19 23:19 12/13/19 23:19 12/13/19 23:19 12/13/19 23:19 ED Treatment Course - LABORATORY CBC & Chemistry Diagram: 12/14/19 03:00 12/14/19 03:00 - Medications Given in the ED: ED Medications Discontinued Medications Generic Name Dose Route Start Last Admin Trade Name Ronaldo PRN Reason Stop Dose Admin Acetaminophen/Codeine Phosphate 3 tab 12/14/19 00:43 12/14/19 01:10 Tylenol # 3 - PO 12/14/19 00:44 3 tab ONCE ONE Administration Albuterol/Ipratropium 1 amp 12/13/19 23:16 12/13/19 23:50 Duoneb - NEB 12/13/19 23:17 1 amp ONCE ONE Administration Medical Decision Making - Medical Decision Making 12/14/19 02:47 Patient Name: VADIM TINOCO THIS IS A PRELIMINARY REPORT FROM [facility] DATE OF SERVICE: 2019-12-14 01:12:54 IMAGES: 41 EXAM: DUPLEX VASCULAR US-2 LEGS HISTORY: Rule out DVT COMPARISON: None. FINDINGS: Evaluation somewhat limited by patient body habitus. There is no DVT in the right or left lower extremity. IMPRESSION: No DVT 12/14/19 02:49 Patient Name: VADIM TINOCO THIS IS A PRELIMINARY REPORT FROM [facility] DATE OF SERVICE: 2019-12-14 01:46:21 IMAGES: 17 EXAM: BREAST US LEFT COMP NO BIRAD HISTORY: Rule out retroareolar abscess COMPARISON: None. FINDINGS: Multifocal soft tissue edema and nonloculated fluid is noted, likely representing infected. There is a 3.5 x 1.5 cm triangular focus of fluid which could indicate abscess, but it is not clearly loculated. IMPRESSION: Probable infection with possible 3.5 x 1.5 cm abscess, although the fluid may not be loculated. 12/14/19 03:35 Pt has an elevated d-dimer. 12/14/19 20:48 Pt scheduled to get CTA with contrast to r/o DVT; she has been admitted. 12/14/19 20:49 Signed out to the day ER team Discharge - Discharge Information Problems reviewed: Yes Clinical Impression/Diagnosis: Breast pain, Chronic cough, Leg pain Condition: Stable - Follow up/Referral - Patient Discharge Instructions - Post Discharge Activity
[2019-12-14 03:21] LABS: HEMATOCRIT 34.2 % (32.4-45.2); MCH 26.9 pg (25.7-33.7); MCHC 32.2 g/dl (32.0-36.0); MEAN CELL VOLUME 83.4 fl (80-96); MEAN PLT VOLUME 10.5 fl (7.5-11.1); PLATELET COUNT 239 K/MM3 (134-434); RDW 16.5 % (11.6-15.6); WHITE BLOOD COUNT 9.6 K/mm3 (4.0-10.0)
[2019-12-14 03:51] LABS: ALBUMIN 3.5 g/dl (3.4-5.0); ALK PHOS 75 U/L (45-117); BLOOD UREA NITROGEN 18.7 mg/dL (7-18); CALCIUM 8.7 mg/dL (8.5-10.1); CO2 33 mmol/L (21-32); CREATININE 0.9 mg/dL (0.55-1.3); GLUCOSE,RANDOM 231 mg/dL (74-106); SGOT/AST 22 U/L (15-37); SGPT/ALT 25 U/L (13-61); SODIUM 140 mmol/L (136-145); TOT PROT 7.3 g/dl (6.4-8.2)
[2019-12-14 04:04] LABS: ANION GAP 3 MMOL/L (8-16); BILIRUBIN,TOTAL 0.6 mg/dL (0.2-1); CHLORIDE 104 mmol/L (98-107); POTASSIUM 4.7 mmol/L (3.5-5.1)
--- NOTE | 2019-12-14 04:54 | HP ---
Admitting History and Physical - Primary Care Physician PCP: Kathy Langford - Admission Chief Complaint: Difficulty Breathing History of Present Illness: This is a 49 y/o female from [facility] with a PMHx Asthma, DM, CHF, GRETCHEN, GERD, Pneumonia, Severe Obesity, Celluitis (on Clindamycin), recent admitted for non-Covid pneumonia discharged two weeks ago. Who presents to the ED via ambulance for 3 days of worsening SOB. Patient reports that she has fluid in her left breast, lungs, and reports having a " painful lump to the back of her left leg". Patient denies fever, dizziness, BATISTA, CP, palpitations, AP, N/V/D, constipation, dysuria. History Source: Patient Limitations to Obtaining History: No Limitations - Past Medical History Cardiovascular: Yes: CHF, HTN Pulmonary: Yes: Asthma, Pneumonia, Sleep Apnea Gastrointestinal: Yes: GERD - Past Surgical History Additional Past Surgical History: Thyroid - Smoking History Smoking history: Never smoked Have you smoked in the past 12 months: No - Alcohol/Substance Use Hx Alcohol Use: No History of Substance Use: reports: None - Social History Usual Living Arrangement: Yes: Custodial ADL: Support Services History of Recent Travel: No Home Medications - Allergies Allergies/Adverse Reactions: Allergies Allergy/AdvReac Type Severity Reaction Status Date / Time Penicillins Allergy Verified 12/06/19 10:05 pollen extracts Allergy Verified 12/06/19 10:05 - Home Medications Home Medications: Ambulatory Orders Acetaminophen [Tylenol] 650 mg PO QID PRN 12/06/19 Albuterol 0.083% Nebulizer Machelle [Ventolin 0.083% Nebulizer Soln -] 1 neb NEB Q6H PRN 12/06/19 Apixaban [Eliquis -] 2.5 mg PO BID 12/06/19 Baclofen 10 mg PO TID 12/06/19 Benzonatate 200 mg PO TID 12/06/19 Budesonide/Formeterol Fumarate [SYMBICORT 160/4.5mcg -] 1 inh PO BID 12/06/19 Chrm/Vineg/Bit-Orang Peel/Gr T [Apple Cider Vinegar Plus Tb] 1 each PO BID 12/06/19 Clindamycin [Cleocin -] 450 mg PO Q8H #63 capsule 12/06/19 Garlic 1 each PO BID 12/06/19 Insulin (LOG) Aspart [NovoLOG -] 15 units SQ TID 12/06/19 Insulin Degludec [Tresiba Flextouch U-100] 40 unit SQ DAILY 12/06/19 Lactobacillus Acidophilus [Digestive Probiotic] 1 each PO BID 12/06/19 Lidocaine 5% Patch [Lidoderm Patch -] 1 patch TP DAILY 12/06/19 Lisinopril 10 mg PO DAILY 12/06/19 Multivitamin [Multiple Vitamins] 1 each PO DAILY 12/06/19 Prednisolone [Millipred] 5 mg PO ASDIR 12/06/19 Tiotropium [place] [Spiriva Respimat] 4 gm IH DAILY 12/06/19 Home Medications (free text): Novolog Flexipen 23 units SQ TID w/meals. Claritin 10mg po QD. Eliquis 2.5mg po BID. Lasix 40mg po QD. Lidocaine Patch TP Q12H on then Q12H off. Lisinopril 10mg po QD. Symbicort 160/4.5mcg 1 INH BID. Spiriva Respimat 1 INH QD. Baclofen 10mg po TID. Nasal [place] prn. Lactobacillus 1 cap po BID. verified with nurse from [facility] via telephone Family Medical History Family History: Unable to Obtain Review of Systems - Review of Systems Constitutional: reports: Chills Eyes: reports: No Symptoms HENT: reports: No Symptoms Neck: reports: No Symptoms Cardiovascular: reports: Edema, Shortness of Breath Respiratory: reports: Cough, SOB Gastrointestinal: reports: No Symptoms Genitourinary: reports: No Symptoms Breasts: reports: Pain (left breast) Musculoskeletal: reports: Extremity Pain (LLE) Integumentary: reports: Erythema Neurological: reports: No Symptoms Endocrine: reports: No Symptoms Hematology/Lymphatic: reports: No Symptoms Psychiatric: reports: No Symptoms Pain Intensity: 2 Physical Examination Vital Signs: Vital Signs Temperature 98.3 F 12/13/19 23:19 Pulse Rate 71 12/13/19 23:19 Respiratory Rate 20 12/13/19 23:19 Blood Pressure 137/72 12/13/19 23:19 O2 Sat by Pulse Oximetry (%) 98 12/13/19 23:19 Constitutional: Yes: Well Nourished, No Distress, Calm, Obese Eyes: Yes: WNL, Conjunctiva Clear, EOM Intact, PERRL HENT: Yes: WNL, Atraumatic, Normocephalic Neck: Yes: WNL, Supple, Trachea Midline Cardiovascular: Yes: Bradycardia, S1, S2 Respiratory: Yes: Diminished (bases), On Nasal O2, SOB on Exertion Gastrointestinal: Yes: Normal Bowel Sounds, Soft, Abdomen, Obese ...Rectal Exam: Yes: Deferred Renal/: Yes: Incontinence Breast(s): Yes: Left (TTP 5'0 clock aspect) Musculoskeletal: Yes: WNL Extremities: Yes: Erythema (RLE) Edema: Yes Edema: LLE: 2+, RLE: 2+ Peripheral Pulses WNL: Yes Integumentary: Yes: Erythema, Venous Stasis Changes Wound/Incision: Yes: Reddened (RLE L- breast) Neurological: Yes: WNL, Alert, Oriented, Cran Nerves II-XII Intact ...Motor Strength: WNL Psychiatric: Yes: WNL, Alert, Oriented Labs: CBC, BMP 12/14/19 03:00 12/14/19 03:00 Laboratory Results - last 24 hr 12/14/19 12/14/19 12/14/19 03:00 03:00 03:00 WBC 9.6 RBC 4.10 Hgb 11.0 Hct 34.2 MCV 83.4 MCH 26.9 MCHC 32.2 RDW 16.5 H Plt Count 239 MPV 10.5 D-Dimer 616 H Sodium 140 Potassium 4.7 Chloride 104 Carbon Dioxide 33 H Anion Gap 3 L BUN 18.7 H Creatinine 0.9 Est GFR (CKD-EPI)AfAm 87.02 Est GFR (CKD-EPI)NonAf 75.08 Random Glucose 231 H Calcium 8.7 Total Bilirubin 0.6 AST 22 ALT 25 Alkaline Phosphatase 75 Troponin I < 0.02 B-Natriuretic Peptide 193.8 H Total Protein 7.3 Albumin 3.5 Intake & Output 12/11/19 12/12/19 12/13/19 12/14/19 23:59 23:59 23:59 23:59 Weight 158.757 kg Imaging - Results Chest X-ray: Image Reviewed Cat Scan: Pending Ultrasound: Report Reviewed, Image Reviewed EKG: Image Reviewed Problem List - Problems (1) CHF exacerbation Assessment/Plan: Chest xray image reviewed- increased interstitial markings R>L BNP 193 EKG- sinus bradycardia, no ST or TWI QTC 399 Appreciate Cardiology consult Continue Lasix Monitor CMP Monitor vitals Strict INOs Daily weight O2 Code(s): I50.9 - HEART FAILURE, UNSPECIFIED (2) Asthma exacerbation Assessment/Plan: Likely due to Flare vs PE Duoneb Continue Symbicort, Spiriva Chest Xray image reviewed CTA- pending Peak Flow Appreciate Pulmonology consult O2 Code(s): J45.901 - UNSPECIFIED ASTHMA WITH (ACUTE) EXACERBATION (3) Elevated d-dimer Assessment/Plan: r/o PE vs Covid 19 Infection Wells Score 1.5, low risk CTA-pending Will continue Eliquis Code(s): R79.89 - OTHER SPECIFIED ABNORMAL FINDINGS OF BLOOD CHEMISTRY (4) Breast abscess Assessment/Plan: Breast US- breast abscess 3.5 x 1.5 cm Clindamycin IV Appreciate ID consult Consider Surgical consult No leukocytosis, vs-nl Monitor CBC Monitor vitals Code(s): N61.1 - ABSCESS OF THE BREAST AND NIPPLE (5) Cellulitis Assessment/Plan: Continue Clindamycin Appreciate ID consult Monitor CBC Code(s): L03.90 - CELLULITIS, UNSPECIFIED (6) HTN (hypertension) Assessment/Plan: stable Monitor BP Continue Lisinopril Code(s): I10 - ESSENTIAL (PRIMARY) HYPERTENSION (7) GERD (gastroesophageal reflux disease) Assessment/Plan: Continue PPI Code(s): K21.9 - GASTRO-ESOPHAGEAL REFLUX DISEASE WITHOUT ESOPHAGITIS (8) Diabetes mellitus Assessment/Plan: stable BGMs ISS Monitor renal function Code(s): E11.9 - TYPE 2 DIABETES MELLITUS WITHOUT COMPLICATIONS (9) Encounter for screening laboratory testing for COVID-19 virus Assessment/Plan: Low Risk Covid PCR-pending Isolation Precautions Code(s): Z11.59 - ENCOUNTER FOR SCREENING FOR OTHER VIRAL DISEASES (10) Severe obesity (BMI >= 40) Assessment/Plan: Counseled on weight loss Code(s): E66.01 - MORBID (SEVERE) OBESITY DUE TO EXCESS CALORIES Assessment/Plan This is a 49 y/o female from [facility]) with a PMHx Asthma, DM, CHF, GRETCHEN, GERD, Pneumonia, Severe Obesity, Celluitis (on Clindamycin), recent admitted for non-Covid pneumonia discharged two weeks ago. Admitted M/S Breast Abscess, Asthma Exacerbation, CHF Exacerbation for further evaluation of their emergent condition. Plan: See Problem List FEN Fluid Restriction 1L Replete lytes prn Low Na, Diabetic Diet DVT ppx OOB Continue Eliquis Dispo: Requires Inpatient Care Visit type - Emergency Visit Emergency Visit: Yes ED Registration Date: 12/13/19 Care time: The patient presented to the Emergency Department on the above date and was hospitalized for further evaluation of their emergent condition. - New Patient This patient is new to me today: Yes Date on this admission: 12/14/19 - Critical Care Critical Care patient: No
[2019-12-14 05:11] LABS: N-TERMINAL BNP 193.8 pg/ml (5-125)
[2019-12-14] MEDS ORDERED: ALBUTEROL SO4 0.083% IH SOL 2.5 MG/3 ML VIAL.NEB. NEB PRN (05:24)
[2019-12-14] MEDS ORDERED: CLINDAMYCIN 600MG PREMIX IVPB 600 MG/50 ML BAG IVPB ONE ×2 (05:31→05:42)
[2019-12-14] MEDS ORDERED: ALBUTEROL SO4 0.083% IH SOL 2.5 MG/3 ML VIAL.NEB. NEB ONE (09:27)
[2019-12-14] MEDS ORDERED: MULTIVITAMINS (DAILY MVI) TABLET (FP) ONE (09:27)
[2019-12-14] MEDS ORDERED: PT OWN MED DRAWER 7, Y5N ONE (09:28)
[2019-12-14] MEDS ORDERED: APIXABAN 2.5 MG TABLET ONE (09:28)
[2019-12-14] MEDS ORDERED: amLODIPine BESYLATE 5 MG TABLET (FP) ONE (09:41)
[2019-12-14] MEDS ORDERED: APIXABAN 2.5 MG TABLET PO SCH (10:00)
[2019-12-14] MEDS ORDERED: MAG HYDROX/AL HYDROX/SIMETH 30 ML UNIT-DOSE CUP ONE (10:08)
[2019-12-14] MEDS: BUDESONIDE/FORMETEROL FUMARATE 160/4.5 mcg INHALER IH SCH ×2 (10:09→22:17)
[2019-12-14] MEDS: APIXABAN 5 MG TABLET PO SCH ×2 (10:09→22:15)
[2019-12-14] MEDS: amLODIPine BESYLATE 5 MG TABLET (FP) PO SCH (10:09)
[2019-12-14] MEDS: LACTOBACILLUS ACIDOPHILUS 1 TABLET PO SCH ×2 (10:09→22:15)
[2019-12-14] MEDS: TIOTROPIUM BROMIDE 2.5 MCG (SPIRIVA) RESPIMAT INHALER IH SCH (10:09)
[2019-12-14] MEDS: MULTIVITAMINS (DAILY MVI) TABLET (FP) PO SCH (10:10)
--- NOTE | 2019-12-14 11:31 | PN ---
Progress Note, Physician Chief Complaint: EVETS AND NOTES REVIEWED PATIENT SEEN IN ED MILD DISTRESS UNABLE TO HAVE CTA TO R/O PE DUE TO BODY HABITUS - Current Medication List Current Medications: Active Medications Albuterol Sulfate (Ventolin 0.083% Nebulizer Soln -) 1 amp NEB Q6H PRN PRN Reason: SHORT OF BREATH/WHEEZING Amlodipine Besylate (Norvasc -) 5 mg PO DAILY [facility] Last Admin: 12/14/19 10:09 Dose: 5 mg Documented by: Apixaban (Eliquis -) 5 mg PO BID [facility] Last Admin: 12/14/19 10:09 Dose: 5 mg Documented by: Budesonide/Formoterol Fumarate (Symbicort 160/4.5mcg -) 1 puff IH BID [facility] Last Admin: 12/14/19 10:09 Dose: 1 puff Documented by: Lactobacillus Acidophilus (Bacid -) 1 tab PO BID [facility] Last Admin: 12/14/19 10:09 Dose: 1 tab Documented by: Multivitamins/Minerals/Vitamin C (Tab-A-Vit -) 1 tab PO DAILY [facility] Last Admin: 12/14/19 10:10 Dose: 1 tab Documented by: Tiotropium [place] (Spiriva Respimat) 2 puff IH DAILY [facility] Last Admin: 12/14/19 10:09 Dose: 2 puff Documented by: - Objective Vital Signs: Vital Signs Temperature 98.3 F 12/13/19 23:19 Pulse Rate 54 L 12/14/19 06:03 Respiratory Rate 16 12/14/19 06:03 Blood Pressure 143/100 12/14/19 06:03 O2 Sat by Pulse Oximetry (%) 100 12/14/19 06:03 Constitutional: Yes: Mild Distress Cardiovascular: Yes: Regular Rate and Rhythm Respiratory: Yes: Diminished Gastrointestinal: Yes: Abdomen, Obese Genitourinary: Yes: Incontinence Breast(s): Yes: Left, Other (LEFT BREAST FLUID COLLECTION) Musculoskeletal: Yes: Muscle Weakness Edema: Yes Wound/Incision: Yes: Open to air Neurological: Yes: Pre-Existing Deficit ...Motor Strength: LLE Psychiatric: Yes: Other Labs: CBC, BMP 12/14/19 03:00 12/14/19 03:00 Problem List - Problems (1) Asthma exacerbation Code(s): J45.901 - UNSPECIFIED ASTHMA WITH (ACUTE) EXACERBATION (2) Breast abscess Code(s): N61.1 - ABSCESS OF THE BREAST AND NIPPLE (3) Breast pain Code(s): N64.4 - MASTODYNIA (4) CHF exacerbation Code(s): I50.9 - HEART FAILURE, UNSPECIFIED (5) Chronic cough Code(s): R05 - COUGH (6) Diabetes mellitus Code(s): E11.9 - TYPE 2 DIABETES MELLITUS WITHOUT COMPLICATIONS (7) Elevated d-dimer Code(s): R79.89 - OTHER SPECIFIED ABNORMAL FINDINGS OF BLOOD CHEMISTRY (8) Encounter for screening laboratory testing for COVID-19 virus Code(s): Z11.59 - ENCOUNTER FOR SCREENING FOR OTHER VIRAL DISEASES (9) GERD (gastroesophageal reflux disease) Code(s): K21.9 - GASTRO-ESOPHAGEAL REFLUX DISEASE WITHOUT ESOPHAGITIS (10) HTN (hypertension) Code(s): I10 - ESSENTIAL (PRIMARY) HYPERTENSION (11) Leg pain Code(s): M79.606 - PAIN IN LEG, UNSPECIFIED (12) Severe obesity (BMI >= 40) Code(s): E66.01 - MORBID (SEVERE) OBESITY DUE TO EXCESS CALORIES Assessment/Plan CHECK ABG IF 02 SAT IS LOWER THAN MAY NEED TO TRANSFER TO [facility] OF PE. PULMONARY CONSULT UNABLE TO HAVE CTA CHEST HERE DUE TO BODY HABITUS (PT DOES NOT FIT INTO THE CT MACHINE) ELIQUIS 5MG BID NEBS 02 SUPPORT LEFT BREAST EVALUATION ABSCESS VS FLUID COLLECTION BLISTER CHECK BGM, LABS, COVID PENDING
--- NOTE | 2019-12-14 11:49 | CON.CARD ---
Consult Consult Specialty:: Cardiology Referred by:: Anastasiya Reason for Consultation:: CHF - History of Present Illness Chief Complaint: sob History of Present Illness: 49 y.o.femalew/ a PMH ofasthma, DM, GRETCHEN, GERD, HTN, morbid obesity, s/p partial thyroidectomy, recently admitted for pneumia covid negative admitted with sob. Noted with breast abcess. No cp, orthopnea, PND or edema. Echo at [facility] August 2018 TDS, nlef. - History Source History Provided By: Patient, Medical Record - Past Medical History Cardio/Vascular: Yes: CHF, HTN Pulmonary: Yes: Asthma, Pneumonia, Sleep Apnea Gastrointestinal: Yes: GERD - Alcohol/Substance Use Hx Alcohol Use: No History of Substance Use: reports: None - Smoking History Smoking history: Never smoked Have you smoked in the past 12 months: No - Social History ADL: Support Services History of Recent Travel: No Home Medications - Allergies Allergies/Adverse Reactions: Allergies Allergy/AdvReac Type Severity Reaction Status Date / Time Penicillins Allergy Verified 12/06/19 10:05 pollen extracts Allergy Verified 12/06/19 10:05 - Home Medications Home Medications: Ambulatory Orders Acetaminophen [Tylenol] 650 mg PO QID PRN 12/06/19 Albuterol 0.083% Nebulizer Machel[place] [Ventolin 0.083% Nebulizer Soln -] 1 neb NEB Q6H PRN 12/06/19 Apixaban [Eliquis -] 2.5 mg PO BID 12/06/19 Baclofen 10 mg PO TID 12/06/19 Benzonatate 200 mg PO TID 12/06/19 Budesonide/Formeterol Fumarate [SYMBICORT 160/4.5mcg -] 1 inh PO BID 12/06/19 Chrm/Vineg/Bit-Orang Peel/Gr T [Apple Cider Vinegar Plus Tb] 1 each PO BID 12/06/19 Clindamycin [Cleocin -] 450 mg PO Q8H #63 capsule 12/06/19 Garlic 1 each PO BID 12/06/19 Insulin (LOG) Aspart [NovoLOG -] 15 units SQ TID 12/06/19 Insulin Degludec [Tresiba Flextouch U-100] 40 unit SQ DAILY 12/06/19 Lactobacillus Acidophilus [Digestive Probiotic] 1 each PO BID 12/06/19 Lidocaine 5% Patch [Lidoderm Patch -] 1 patch TP DAILY 12/06/19 Lisinopril 10 mg PO DAILY 12/06/19 Multivitamin [Multiple Vitamins] 1 each PO DAILY 12/06/19 Prednisolone [Millipred] 5 mg PO ASDIR 12/06/19 Tiotropium [place] [Spiriva Respimat] 4 gm IH DAILY 12/06/19 Vital Signs: Vital Signs Temperature 98.3 F 12/13/19 23:19 Pulse Rate 54 L 12/14/19 06:03 Respiratory Rate 16 12/14/19 06:03 Blood Pressure 143/100 12/14/19 06:03 O2 Sat by Pulse Oximetry (%) 100 12/14/19 06:03 Constitutional: Yes: No Distress, Calm, Obese Eyes: Yes: Conjunctiva Clear, EOM Intact HENT: Yes: Atraumatic, Normocephalic Neck: Yes: Supple, Trachea Midline Respiratory: Yes: CTA Bilaterally Gastrointestinal: Yes: Normal Bowel Sounds, Abdomen, Obese Cardiovascular: Yes: Regular Rate and Rhythm JVD: No Carotid Bruit: No PMI: Non-Displaced Heart Sounds: Yes: S1, S2 Extremities: Yes: WNL Edema: No - Other Data Labs, Other Data: CBC, BMP 12/14/19 03:00 12/14/19 03:00 Troponin, BNP 12/14/19 03:00 Troponin I < 0.02 B-Natriuretic Peptide 193.8 H Troponin, BNP 12/14/19 03:00 Troponin I < 0.02 B-Natriuretic Peptide 193.8 H Imaging - Results Chest X-ray: Report Reviewed EKG: Report Reviewed Assessment/Plan 49 y.o.femalew/ a PMH ofasthma, DM, GRETCHEN, GERD, HTN, morbid obesity, s/p partial thyroidectomy, recently admitted for pneumia covid negative admitted with sob. Noted with breast abcess. No cp, orthopnea, PND or edema. Echo at [facility] August 2018 TDS, nlef. CXR mild chf poor effort bnp mildly elevated. Plan -no need to repeat echocardiogram -last echo at [facility] 2019 too TDS to evaluate cardiac structures. -morbid obesity can also raise BNP to these levels, but may have mild acute on chronic diastolic chf. -add low dose diuretic, lasix 20 mg daily. -will follow with you.
--- NOTE | 2019-12-14 14:03 | CON.PULM ---
Consult Consult Specialty:: PULMONARY Referred by:: Dr Langford Reason for Consultation:: shortness of breath - History of Present Illness Chief Complaint: shortness of breath History of Present Illness: 49yo female with h/o HTN, DM, LV diastolic dysfunction, asthma, morbid obesity, GRETCHEN, GERD, recent pneumonia who was admitted with worsening shortness of breath x 3 days. No chest pain or discomfort. Reports a cough productive of clear sputum and occasional wheezing. No fevers, chills or sweats. She is a nonsmoker. Reports an increase in her leg swelling and abdomen. - History Source History Provided By: Patient, Medical Record Limitations to Obtaining History: No Limitations - Past Medical History Cardio/Vascular: Yes: CHF, HTN Pulmonary: Yes: Asthma, Pneumonia, Sleep Apnea Gastrointestinal: Yes: GERD - Alcohol/Substance Use Hx Alcohol Use: No History of Substance Use: reports: None - Smoking History Smoking history: Never smoked Have you smoked in the past 12 months: No - Social History ADL: Support Services History of Recent Travel: No Home Medications - Allergies Allergies/Adverse Reactions: Allergies Allergy/AdvReac Type Severity Reaction Status Date / Time Penicillins Allergy Verified 12/06/19 10:05 pollen extracts Allergy Verified 12/06/19 10:05 - Home Medications Home Medications: Ambulatory Orders Acetaminophen [Tylenol] 650 mg PO QID PRN 12/06/19 Albuterol 0.083% Nebulizer Machelle [Ventolin 0.083% Nebulizer Soln -] 1 neb NEB Q6H PRN 12/06/19 Apixaban [Eliquis -] 2.5 mg PO BID 12/06/19 Baclofen 10 mg PO TID 12/06/19 Benzonatate 200 mg PO TID 12/06/19 Budesonide/Formeterol Fumarate [SYMBICORT 160/4.5mcg -] 1 inh PO BID 12/06/19 Chrm/Vineg/Bit-Orang Peel/Gr T [Apple Cider Vinegar Plus Tb] 1 each PO BID 12/06/19 Clindamycin [Cleocin -] 450 mg PO Q8H #63 capsule 12/06/19 Garlic 1 each PO BID 12/06/19 Insulin (LOG) Aspart [NovoLOG -] 15 units SQ TID 12/06/19 Insulin Degludec [Tresiba Flextouch U-100] 40 unit SQ DAILY 12/06/19 Lactobacillus Acidophilus [Digestive Probiotic] 1 each PO BID 12/06/19 Lidocaine 5% Patch [Lidoderm Patch -] 1 patch TP DAILY 12/06/19 Lisinopril 10 mg PO DAILY 12/06/19 Multivitamin [Multiple Vitamins] 1 each PO DAILY 12/06/19 Prednisolone [Millipred] 5 mg PO ASDIR 12/06/19 Tiotropium [place] [Spiriva Respimat] 4 gm IH DAILY 12/06/19 Review of Systems - Review of Systems Constitutional: reports: Weakness. denies: Chills, Fever Eyes: denies: Recent Change in Vision HENT: denies: Nasal Congestion, Throat Pain Neck: denies: Stiffness, Tenderness Cardiovascular: reports: Edema, Shortness of Breath. denies: Chest Pain, Palpitations Respiratory: reports: Cough, SOB, Wheezing. denies: Hemoptysis Gastrointestinal: reports: Bloating. denies: Abdominal Pain, Nausea, Vomiting Genitourinary: denies: Dysuria, Hematuria Neurological: denies: Dizziness, Headache Endocrine: denies: Unexplained Weight Loss Physical Exam Vital Sings: Vital Signs Temperature 98.5 F 12/14/19 13:00 Pulse Rate 66 12/14/19 13:00 Respiratory Rate 20 12/14/19 13:00 Blood Pressure 163/118 H 12/14/19 13:00 O2 Sat by Pulse Oximetry (%) 100 12/14/19 13:00 Constitutional: Yes: Anxious Eyes: Yes: Conjunctiva Clear, EOM Intact HENT: Yes: Atraumatic, Normocephalic Neck: Yes: Supple, Trachea Midline Cardiovascular: Yes: Regular Rate and Rhythm Respiratory: Yes: Diminished (distant ), Poor Air Entry ...Clubbing: No Gastrointestinal: Yes: Normal Bowel Sounds, Soft, Abdomen, Obese. No: Tenderness Edema: Yes Neurological: Yes: Alert, Oriented Labs: CBC, BMP 12/14/19 03:00 12/14/19 03:00 Imaging - Results Chest X-ray: Report Reviewed, Image Reviewed (pulmonary vascular congestion) Assessment/Plan Acute on Chronic Diastolic Heart Failure Morbid Obesity GRETCHEN/OHS Asthma HTN DM - agree with lasix - monitor urine output, creatinine - O2 to keep SpO2 >90% - inhaled bronchodilators as needed - continue empiric anticoagulation
[2019-12-14] MEDS: FUROSEMIDE 40 MG/4 ML INJECTABLE VIAL IVPUSH SCH (14:29)
[2019-12-14] MEDS: INSULIN SLIDING SCALE (NOVOLOG) 1 VIAL SQ SCH ×2 (17:45→22:16)
--- NOTE | 2019-12-14 17:54 | PN ---
Progress Note (short form) - Note Progress Note: ID CONSULT DICTATED BREAST ABSCESS MORBID OBESITY PCN ALLERGY CHF EMPIRIC VANCOMYCIN / AZTREONEM
[2019-12-14] MEDS ORDERED: oxyCODONE HCL 5 MG TABLET PO ONE (18:45)
[2019-12-14] MEDS ORDERED: ALBUTEROL SO4 HFA INHALER IH PRN (18:47)
[2019-12-14] MEDS: ALBUTEROL SO4 HFA INHALER IH PRN (20:32)
[2019-12-14] MEDS ORDERED: INSULIN SLIDING SCALE (NOVOLOG) 1 VIAL SQ SCH (22:00)
[2019-12-15] MEDS: INSULIN SLIDING SCALE (NOVOLOG) 1 VIAL SQ SCH ×4 (06:49→21:52)
[2019-12-15] MEDS: VANCOMYCIN HCL 1,250 MG in DEXTROSE 5%-WATER - 250 ML IVPB SCH ×2 (09:12→21:48)
--- NOTE | 2019-12-15 10:02 | EKG ---
Test Reason : Blood Pressure : / mmHG Vent. Rate : 057 BPM Atrial Rate : 057 BPM P-R Int : 138 ms QRS Dur : 074 ms QT Int : 410 ms P-R-T Axes : 037 -07 044 degrees QTc Int : 399 ms SINUS BRADYCARDIA OTHERWISE NORMAL ECG WHEN COMPARED WITH ECG OF 06-DEC-2019 10:38, NO SIGNIFICANT CHANGE WAS FOUND Confirmed by Jeramy Florez ([id number]) on 12/15/2019 10:01:54 AM Referred By: Confirmed By:Jeramy Florez
[2019-12-15] MEDS: AZTREONAM 2 GM in DEXTROSE 5%-WATER 100 ML IVPB SCH ×2 (10:20→17:14)
[2019-12-15] MEDS: MULTIVITAMINS (DAILY MVI) TABLET (FP) PO SCH (10:27)
[2019-12-15] MEDS: amLODIPine BESYLATE 5 MG TABLET (FP) PO SCH (10:27)
[2019-12-15] MEDS: LACTOBACILLUS ACIDOPHILUS 1 TABLET PO SCH ×2 (10:28→21:53)
[2019-12-15] MEDS: APIXABAN 5 MG TABLET PO SCH ×2 (10:28→21:54)
[2019-12-15] MEDS: FUROSEMIDE 40 MG/4 ML INJECTABLE VIAL IVPUSH SCH (10:28)
[2019-12-15] MEDS: BUDESONIDE/FORMETEROL FUMARATE 160/4.5 mcg INHALER IH SCH ×2 (11:18→22:02)
[2019-12-15 11:34] LABS: BASO % 0.6 % (0-2.0); HEMATOCRIT 33.9 % (32.4-45.2); HEMOGLOBIN 10.6 GM/dL (10.7-15.3); LYMPH % 35.1 % (8-40); MCH 26.1 pg (25.7-33.7); MCHC 31.4 g/dl (32.0-36.0); MEAN PLT VOLUME 10.4 fl (7.5-11.1); NEUT % 52.3 % (42.8-82.8); PLATELET COUNT 232 K/MM3 (134-434); RBC 4.09 M/mm3 (3.60-5.2); RDW 16.4 % (11.6-15.6); WHITE BLOOD COUNT 7.4 K/mm3 (4.0-10.0)
--- NOTE | 2019-12-15 11:34 | PN ---
Progress Note, Physician Chief Complaint: CHF Shortness of breath Left breast cellulitis History of Present Illness: NAD C/O SOB and back pain - Current Medication List Current Medications: Active Medications Acetaminophen (Tylenol -) 650 mg PO Q6H PRN PRN Reason: PAIN LEVEL 4 - 6 Albuterol Sulfate (Ventolin Hfa Inhaler -) 2 puff IH Q6H PRN PRN Reason: SHORTNESS OF BREATH Last Admin: 12/14/19 20:32 Dose: 2 puff Documented by: Amlodipine Besylate (Norvasc -) 5 mg PO DAILY [facility] Last Admin: 12/15/19 10:27 Dose: 5 mg Documented by: Apixaban (Eliquis -) 5 mg PO BID [facility] Last Admin: 12/15/19 10:28 Dose: 5 mg Documented by: Budesonide/Formoterol Fumarate (Symbicort 160/4.5mcg -) 1 puff IH BID [facility] Last Admin: 12/14/19 22:17 Dose: 1 puff Documented by: Furosemide (Lasix Injection -) 40 mg IVPUSH DAILY [facility] Last Admin: 12/15/19 10:28 Dose: 40 mg Documented by: Aztreonam 2 gm/ Dextrose 100 mls @ 100 mls/hr IVPB Q8H-IV [facility]; Protocol Last Admin: 12/15/19 10:20 Dose: 100 mls/hr Documented by: Vancomycin HCl 1,250 mg/ (Dextrose) 250 mls @ 166.667 mls/hr IVPB Q12H [facility]; Protocol Last Admin: 12/15/19 09:12 Dose: 166.667 mls/hr Documented by: Insulin Aspart (Novolog Vial Sliding Scale -) 1 vial SQ ACHS [facility]; Protocol Last Admin: 12/15/19 06:49 Dose: 2 units Documented by: Lactobacillus Acidophilus (Bacid -) 1 tab PO BID [facility] Last Admin: 12/15/19 10:28 Dose: 1 tab Documented by: Multivitamins/Minerals/Vitamin C (Tab-A-Vit -) 1 tab PO DAILY [facility] Last Admin: 12/15/19 10:27 Dose: 1 tab Documented by: Tiotropium [place] (Spiriva Respimat) 2 puff IH DAILY [facility] Last Admin: 12/14/19 10:09 Dose: 2 puff Documented by: - Objective Vital Signs: Vital Signs Temperature 97.6 F 08/03/20 05:57 Pulse Rate 68 12/15/19 08:34 Respiratory Rate 20 12/15/19 05:57 Blood Pressure 116/57 L 12/15/19 05:57 O2 Sat by Pulse Oximetry (%) 100 12/15/19 08:34 Constitutional: Yes: Well Nourished, No Distress, Calm, Obese Cardiovascular: Yes: Regular Rate and Rhythm Respiratory: Yes: Regular, Diminished, On Nasal O2 Gastrointestinal: Yes: Normal Bowel Sounds, Soft, Abdomen, Obese Genitourinary: Yes: WNL Musculoskeletal: Yes: Muscle Weakness Extremities: Yes: WNL Edema: Yes Edema: LLE: 2+, RLE: 2+ Peripheral Pulses WNL: Yes Neurological: Yes: Alert, Oriented Psychiatric: Yes: Alert, Oriented Problem List - Problems (1) Breast abscess Assessment/Plan: -Left breast U/S reviewed -On IV abx -Surgical consult for possible abscess drainage Problems reviewed: Yes Code(s): N61.1 - ABSCESS OF THE BREAST AND NIPPLE (2) CHF exacerbation Assessment/Plan: -IV furosemide -CXR possible congestion -Unable to do CT chest due to pt's BMI -Seen by Cardiology Problems reviewed: Yes Code(s): I50.9 - HEART FAILURE, UNSPECIFIED (3) Diabetes mellitus Assessment/Plan: -Recheck A1c -BGM AC HS -ISS -Diabetic low sodium diet Problems reviewed: Yes Code(s): E11.9 - TYPE 2 DIABETES MELLITUS WITHOUT COMPLICATIONS (4) Severe obesity (BMI >= 40) Assessment/Plan: -Low calorie diet Problems reviewed: Yes Code(s): E66.01 - MORBID (SEVERE) OBESITY DUE TO EXCESS CALORIES (5) SOB (shortness of breath) Assessment/Plan: -Pulmonary on board -CXR reviewed -COVID 19-PCR pending -Unable to do CT chest 2/2 to BMI -Bronchodilators -O2 tx to keep SpO2>90% -On empiric eliquis until COVID results and due to elevated d dimer Problems reviewed: Yes Code(s): R06.02 - SHORTNESS OF BREATH Assessment/Plan See problem list
--- NOTE | 2019-12-15 11:51 | PN ---
Progress Note, Physician Chief Complaint: Reports no dyspnea - Current Medication List Current Medications: Active Medications Acetaminophen (Tylenol -) 650 mg PO Q6H PRN PRN Reason: PAIN LEVEL 4 - 6 Albuterol Sulfate (Ventolin Hfa Inhaler -) 2 puff IH Q6H PRN PRN Reason: SHORTNESS OF BREATH Last Admin: 12/14/19 20:32 Dose: 2 puff Documented by: Amlodipine Besylate (Norvasc -) 5 mg PO DAILY [facility] Last Admin: 12/15/19 10:27 Dose: 5 mg Documented by: Apixaban (Eliquis -) 5 mg PO BID [facility] Last Admin: 12/15/19 10:28 Dose: 5 mg Documented by: Budesonide/Formoterol Fumarate (Symbicort 160/4.5mcg -) 1 puff IH BID [facility] Last Admin: 12/14/19 22:17 Dose: 1 puff Documented by: Furosemide (Lasix Injection -) 40 mg IVPUSH DAILY [facility] Last Admin: 12/15/19 10:28 Dose: 40 mg Documented by: Aztreonam 2 gm/ Dextrose 100 mls @ 100 mls/hr IVPB Q8H-IV [facility]; Protocol Last Admin: 12/15/19 10:20 Dose: 100 mls/hr Documented by: Vancomycin HCl 1,250 mg/ (Dextrose) 250 mls @ 166.667 mls/hr IVPB Q12H [facility]; Protocol Last Admin: 12/15/19 09:12 Dose: 166.667 mls/hr Documented by: Insulin Aspart (Novolog Vial Sliding Scale -) 1 vial SQ ACHS [facility]; Protocol Last Admin: 12/15/19 06:49 Dose: 2 units Documented by: Lactobacillus Acidophilus (Bacid -) 1 tab PO BID [facility] Last Admin: 12/15/19 10:28 Dose: 1 tab Documented by: Multivitamins/Minerals/Vitamin C (Tab-A-Vit -) 1 tab PO DAILY [facility] Last Admin: 12/15/19 10:27 Dose: 1 tab Documented by: Tiotropium [place] (Spiriva Respimat) 2 puff IH DAILY [facility] Last Admin: 12/14/19 10:09 Dose: 2 puff Documented by: - Objective Vital Signs: Vital Signs Temperature 97.6 F 12/15/19 05:57 Pulse Rate 68 12/15/19 08:34 Respiratory Rate 12/15/19 05:57 Blood Pressure 116/57 L 12/15/19 05:57 O2 Sat by Pulse Oximetry (%) 100 12/15/19 08:34 Constitutional: Yes: No Distress, Anxious Eyes: Yes: Conjunctiva Clear, EOM Intact HENT: Yes: Atraumatic, Normocephalic Neck: Yes: Supple, Trachea Midline Cardiovascular: Yes: Regular Rate and Rhythm (JVD cannot be assessed due to habitus), S1, S2 Respiratory: Yes: Regular, CTA Bilaterally Gastrointestinal: Yes: Normal Bowel Sounds Edema: Yes Edema: LLE: Trace, RLE: Trace - ....Imaging Chest X-ray: Report Reviewed Problem List - Problems (1) Asthma exacerbation Code(s): J45.901 - UNSPECIFIED ASTHMA WITH (ACUTE) EXACERBATION (2) CHF exacerbation Code(s): I50.9 - HEART FAILURE, UNSPECIFIED Assessment/Plan 49 y.o.femalew/ a PMH ofasthma, DM, GRETCHEN, GERD, HTN, morbid obesity, s/p partial thyroidectomy, recently admitted for pneumia covid negative admitted with sob. Noted with breast abcess. No cp, orthopnea, PND or edema. Echo at [facility] August 2018 TDS, nlef. CXR mild chf poor effort bnp mildly elevated. Plan -no need to repeat echocardiogram -last echo at [facility] 2019 too TDS to evaluate cardiac structures. -morbid obesity can also raise BNP to these levels, but may have mild acute on chronic diastolic chf. - low dose diuretic, lasix 20 mg daily. -will follow with you.
[2019-12-15 11:59] LABS: ALBUMIN 3.3 g/dl (3.4-5.0); BILIRUBIN,TOTAL 0.9 mg/dL (0.2-1); BLOOD UREA NITROGEN 16.3 mg/dL (7-18); CALCIUM 8.9 mg/dL (8.5-10.1); CREATININE 0.8 mg/dL (0.55-1.3); POTASSIUM 4.1 mmol/L (3.5-5.1); TOT PROT 6.8 g/dl (6.4-8.2)
[2019-12-15] MEDS: ALBUTEROL SO4 HFA INHALER IH PRN (12:18)
--- NOTE | 2019-12-15 12:28 | CONSULT ---
- Consultation REQUESTING PROVIDER: Corie Rose [employer] CONSULT REQUEST: We have been asked to surgically evaluate this patient for a possible left breast abscess. PCP:Kathy Langford HISTORY OF PRESENT ILLNESS: FERNANDO who is a 49 y/o A/A/female w/ # comorbid medical problems who was admitted w/difficulty breathing among other problems and c/o left breast pain w/o injury; she has never had this before. PMHx: asthma/CHF/IDDM/HTN PSHx: none Home Medications Medication Instructions Recorded Acetaminophen [Tylenol] 650 mg PO QID PRN 12/06/19 Albuterol 0.083% Nebulizer Machelle 1 neb NEB Q6H PRN 12/06/19 [Ventolin 0.083% Nebulizer Soln -] Apixaban [Eliquis -] 2.5 mg PO BID 12/06/19 Baclofen 10 mg PO TID 12/06/19 Benzonatate 200 mg PO TID 12/06/19 Budesonide/Formeterol Fumarate 1 inh PO BID 12/06/19 [SYMBICORT 160/4.5mcg -] Chrm/Vineg/Bit-Orang Peel/Gr T 1 each PO BID 12/06/19 [Apple Cider Vinegar Plus Tb] Clindamycin [Cleocin -] 450 mg PO Q8H #63 capsule 12/06/19 Garlic 1 each PO BID 12/06/19 Insulin (LOG) Aspart [NovoLOG -] 15 units SQ TID 12/06/19 Insulin Degludec [Tresiba 40 unit SQ DAILY 12/06/19 Flextouch U-100] Lactobacillus Acidophilus 1 each PO BID 12/06/19 [Digestive Probiotic] Lidocaine 5% Patch [Lidoderm Patch 1 patch TP DAILY 12/06/19 -] Lisinopril 10 mg PO DAILY 12/06/19 Multivitamin [Multiple Vitamins] 1 each PO DAILY 12/06/19 Prednisolone [Millipred] 5 mg PO ASDIR 12/06/19 Tiotropium [place] [Spiriva 4 gm IH DAILY 12/06/19 Respimat] Allergies Allergy/AdvReac Type Severity Reaction Status Date / Time Penicillins Allergy Verified 12/06/19 10:05 pollen extracts Allergy Verified 12/06/19 10:05 bees Allergy Uncoded 12/14/19 18:37 kiwi Allergy Uncoded 12/14/19 18:37 REVIEW OF SYSTEMS: CONSTITUTIONAL: Absent: fever, chills, diaphoresis, generalized weakness, malaise, loss of appetite, weight change CARDIOVASCULAR: Present: chest pain, syncope, palpitations, irregular heart rate, lightheadedness, peripheral edema RESPIRATORY: Present: cough, shortness of breath, dyspnea with exertion, wheezing, stridor, Absent: hemoptysis GASTROINTESTINAL: Absent: abdominal pain, abdominal distension, nausea, vomiting, diarrhea, constipation, melena, hematochezia GENITOURINARY: Absent: dysuria, frequency, urgency, hesitancy, hematuria, flank pain, genital pain MUSCULOSKELETAL: Absent: myalgia, arthralgia, joint swelling, back pain, neck pain SKIN: Absent: rash, itching, pallor HEMATOLOGIC/IMMUNOLOGIC: Absent: easy bleeding, easy bruising, lymphadenopathy NEUROLOGIC: Absent: headache, focal weakness, paresthesias, dizziness, unsteady gait, seizure, mental status changes, bladder or bowel incontinence PSYCHIATRIC: Absent: anxiety, depression, suicidal or homicidal ideation, hallucinations. PHYSICAL EXAM: GENERAL: Awake, alert, and fully oriented, in no acute distress. HEAD: Normal with no signs of trauma. EYES: PERRL, sclera anicteric, conjunctiva clear. NECK: Normal ROM, supple without lymphadenopathy, JVD, or masses. ABDOMEN: Soft, nontender, not distended, normoactive bowel sounds, no guarding, no rebound, no masses. No organomegaly. MUSCULOSKELETAL: Normal ROM at all joints. No bony deformities or tenderness. No CVA tenderness. UPPER EXTREMITIES: 2+ pulses, warm, well-perfused. No cyanosis. Cap refill <2 seconds. Positive peripheral edema. LOWER EXTREMITIES: 2+ pulses, warm, well-perfused. No calf tenderness. Positive peripheral edema. NEUROLOGICAL: Normal speech, gait not observed. PSYCH: Cooperative. Good eye contact. Appropriate mood and affect. SKIN: Warm, dry, normal turgor, no rashes or lesions noted. BREASTS: pendulous and grossly w/o masses; peau d'orange and ttp @ ~ 9-12 of the left breast at the nipple areola border w/o fluctuance and minimal ttp; nipple/areola complex grossly normal bilaterally. Vital Signs Temperature 97.6 F 12/15/19 05:57 Pulse Rate 68 12/15/19 08:34 Respiratory Rate 20 12/15/19 05:57 Blood Pressure 116/57 L 12/15/19 05:57 O2 Sat by Pulse Oximetry (%) 100 12/15/19 08:34 Lab Results WBC 7.4 K/mm3 (4.0-10.0) 12/15/19 10:26 RBC 4.09 M/mm3 (3.60-5.2) 12/15/19 10:26 Hgb 10.6 GM/dL (10.7-15.3) L 12/15/19 10:26 Hct 33.9 % (32.4-45.2) 12/15/19 10:26 MCV 83.0 fl (80-96) 12/15/19 10:26 MCHC 31.4 g/dl (32.0-36.0) L 12/15/19 10:26 RDW 16.4 % (11.6-15.6) H 12/15/19 10:26 Plt Count 232 K/MM3 (134-434) 12/15/19 10:26 Sodium 140 mmol/L (136-145) 12/15/19 10:26 Potassium 4.1 mmol/L (3.5-5.1) 12/15/19 10:26 Chloride 102 mmol/L (98-107) 12/15/19 10:26 Carbon Dioxide 33 mmol/L (21-32) H 12/15/19 10:26 Anion Gap 6 MMOL/L (8-16) L 12/15/19 10:26 BUN 16.3 mg/dL (7-18) 12/15/19 10:26 Creatinine 0.8 mg/dL (0.55-1.3) 12/15/19 10:26 Random Glucose 184 mg/dL (74-106) H 12/15/19 10:26 Calcium 8.9 mg/dL (8.5-10.1) 12/15/19 10:26 IMP: Cellulitis/? evolving left breast abscess. PLAN: Given patients super obesity and other medical co morbid conditions and pending COVID status would continue to tx. w/ IVAB's in the absence of fever and or elevated WBC count. Delgado Alfaro MD FACS
[2019-12-15] MEDS: POTASSIUM CHLORIDE TABS 20 MEQ TABLET.ER (FP) PO SCH (13:52)
[2019-12-15] MEDS: BACLOFEN 10 MG TABLET (FP) PO SCH ×2 (13:53→21:53)
[2019-12-15] MEDS: PANTOPRAZOLE 40 MG TABLET PO SCH (13:53)
--- NOTE | 2019-12-15 14:52 | PN ---
Progress Note (short form) - Note Progress Note: Breathing feels a little better today. Used NIPPV overnight with good effect. No CP. Intake & Output 12/12/19 12/13/19 12/14/19 12/15/19 23:59 23:59 23:59 23:59 Intake Total 1000 250 Output Total 300 100 Balance 700 150 Weight 350 lb 498 lb 489 lb 9.6 oz Last Vital Signs Temp Pulse Resp BP Pulse Ox 97.6 F 68 20 116/57 L 100 12/15/19 05:57 12/15/19 08:34 12/15/19 05:57 12/15/19 05:57 12/15/19 08:34 Active Medications Acetaminophen (Tylenol -) 650 mg PO Q6H PRN PRN Reason: PAIN LEVEL 4 - 6 Albuterol Sulfate (Ventolin Hfa Inhaler -) 2 puff IH Q6H PRN PRN Reason: SHORTNESS OF BREATH Last Admin: 12/15/19 12:18 Dose: 2 puff Documented by: Amlodipine Besylate (Norvasc -) 5 mg PO DAILY [facility] Last Admin: 12/15/19 10:27 Dose: 5 mg Documented by: Apixaban (Eliquis -) 5 mg PO BID [facility] Last Admin: 12/15/19 10:28 Dose: 5 mg Documented by: Baclofen (Lioresal -) 10 mg PO TID [facility] Last Admin: 12/15/19 13:53 Dose: 10 mg Documented by: Budesonide/Formoterol Fumarate (Symbicort 160/4.5mcg -) 1 puff IH BID [facility] Last Admin: 12/15/19 11:18 Dose: 1 puff Documented by: Furosemide (Lasix Injection -) 40 mg IVPUSH DAILY [facility] Last Admin: 12/15/19 10:28 Dose: 40 mg Documented by: Aztreonam 2 gm/ Dextrose 100 mls @ 100 mls/hr IVPB Q8H-IV [facility]; Protocol Last Admin: 12/15/19 10:20 Dose: 100 mls/hr Documented by: Vancomycin HCl 1,250 mg/ (Dextrose) 250 mls @ 166.667 mls/hr IVPB Q12H [facility]; Protocol Last Admin: 12/15/19 09:12 Dose: 166.667 mls/hr Documented by: Insulin Aspart (Novolog Vial Sliding Scale -) 1 vial SQ ACHS [facility]; Protocol Last Admin: 12/15/19 12:13 Dose: 2 units Documented by: Lactobacillus Acidophilus (Bacid -) 1 tab PO BID [facility] Last Admin: 12/15/19 10:28 Dose: 1 tab Documented by: Lisinopril (Prinivil) 10 mg PO DAILY [facility] Multivitamins/Minerals/Vitamin C (Tab-A-Vit -) 1 tab PO DAILY [facility] Last Admin: 12/15/19 10:27 Dose: 1 tab Documented by: Pantoprazole Sodium (Protonix -) 40 mg PO DAILY [facility] Last Admin: 12/15/19 13:53 Dose: 40 mg Documented by: Potassium Chloride (K-Dur -) 20 meq PO DAILY [facility] Last Admin: 12/15/19 13:52 Dose: 20 meq Documented by: Tiotropium [place] (Spiriva Respimat) 2 puff IH DAILY [facility] Last Admin: 12/14/19 10:09 Dose: 2 puff Documented by: Constitutional: Yes: Anxious Eyes: Yes: Conjunctiva Clear, EOM Intact HENT: Yes: Atraumatic, Normocephalic Neck: Yes: Supple, Trachea Midline Cardiovascular: Yes: Regular Rate and Rhythm Respiratory: Yes: Diminished (distant ), Poor Air Entry ...Clubbing: No Gastrointestinal: Yes: Normal Bowel Sounds, Soft, Abdomen, Obese. No: Tenderness Edema: Yes Neurological: Yes: Alert, Oriented Labs: Laboratory Results - last 24 hr 12/14/19 12/14/19 12/15/19 16:22 22:12 06:45 WBC RBC Hgb Hct MCV MCH MCHC RDW Plt Count MPV Absolute Neuts (auto) Neutrophils % Lymphocytes % Monocytes % Eosinophils % Basophils % Nucleated RBC % Sodium Potassium Chloride Carbon Dioxide Anion Gap BUN Creatinine Est GFR (CKD-EPI)AfAm Est GFR (CKD-EPI)NonAf POC Glucometer 233 202 152 Random Glucose Calcium Total Bilirubin AST ALT Alkaline Phosphatase Total Protein Albumin 12/15/19 12/15/19 12/15/19 10:26 10:26 10:39 WBC 7.4 RBC 4.09 Hgb 10.6 L Hct 33.9 MCV 83.0 MCH 26.1 MCHC 31.4 L RDW 16.4 H Plt Count 232 MPV 10.4 Absolute Neuts (auto) 3.9 Neutrophils % 52.3 Lymphocytes % 35.1 Monocytes % 8.0 Eosinophils % 4.0 D Basophils % 0.6 Nucleated RBC % 0 Sodium 140 Potassium 4.1 Chloride 102 Carbon Dioxide 33 H Anion Gap 6 L BUN 16.3 Creatinine 0.8 Est GFR (CKD-EPI)AfAm 100.33 Est GFR (CKD-EPI)NonAf 86.57 POC Glucometer 171 Random Glucose 184 H Calcium 8.9 Total Bilirubin 0.9 AST 8 L ALT 20 Alkaline Phosphatase 73 Total Protein 6.8 Albumin 3.3 L 12/15/19 11:12 WBC RBC Hgb Hct MCV MCH MCHC RDW Plt Count MPV Absolute Neuts (auto) Neutrophils % Lymphocytes % Monocytes % Eosinophils % Basophils % Nucleated RBC % Sodium Potassium Chloride Carbon Dioxide Anion Gap BUN Creatinine Est GFR (CKD-EPI)AfAm Est GFR (CKD-EPI)NonAf POC Glucometer 86 Random Glucose Calcium Total Bilirubin AST ALT Alkaline Phosphatase Total Protein Albumin Imaging - Results Chest X-ray: Report Reviewed, Image Reviewed (pulmonary vascular congestion) Assessment/Plan Acute on Chronic Diastolic Heart Failure Morbid Obesity GRETCHEN/OHS Asthma HTN DM - Lasix - monitor urine output, creatinine - O2 to keep SpO2 >90% - inhaled bronchodilators as needed - continue empiric anticoagulation - NIPPV QHS and PRN Dr Medrano
[2019-12-15] MEDS: ACETAMINOPHEN 325 MG TABLET (FP) PO PRN (18:54)
[2019-12-15] MEDS: TIOTROPIUM BROMIDE 2.5 MCG (SPIRIVA) RESPIMAT INHALER IH SCH (19:38)
--- NOTE | 2019-12-15 22:18 | PN ---
Progress Note, Physician History of Present Illness: C/O L BREAST PAIN NO C/O F/C AFEBRILE - Current Medication List Current Medications: Active Medications Acetaminophen (Tylenol -) 650 mg PO Q6H PRN PRN Reason: PAIN LEVEL 4 - 6 Last Admin: 12/15/19 18:54 Dose: 650 mg Documented by: Albuterol Sulfate (Ventolin Hfa Inhaler -) 2 puff IH Q6H PRN PRN Reason: SHORTNESS OF BREATH Last Admin: 12/15/19 12:18 Dose: 2 puff Documented by: Amlodipine Besylate (Norvasc -) 5 mg PO DAILY [facility] Last Admin: 12/15/19 10:27 Dose: 5 mg Documented by: Apixaban (Eliquis -) 5 mg PO BID [facility] Last Admin: 12/15/19 21:54 Dose: 5 mg Documented by: Baclofen (Lioresal -) 10 mg PO TID [facility] Last Admin: 12/15/19 21:53 Dose: 10 mg Documented by: Budesonide/Formoterol Fumarate (Symbicort 160/4.5mcg -) 1 puff IH BID [facility] Last Admin: 12/15/19 22:02 Dose: 1 puff Documented by: Furosemide (Lasix Injection -) 40 mg IVPUSH DAILY [facility] Last Admin: 12/15/19 10:28 Dose: 40 mg Documented by: Aztreonam 2 gm/ Dextrose 100 mls @ 100 mls/hr IVPB Q8H-IV [facility]; Protocol Last Admin: 12/15/19 17:14 Dose: 100 mls/hr Documented by: Vancomycin HCl 1,250 mg/ (Dextrose) 250 mls @ 166.667 mls/hr IVPB Q12H [facility]; Protocol Last Admin: 12/15/19 21:48 Dose: 166.667 mls/hr Documented by: Insulin Aspart (Novolog Vial Sliding Scale -) 1 vial SQ ACHS [facility]; Protocol Last Admin: 12/15/19 21:52 Dose: 4 units Documented by: Lactobacillus Acidophilus (Bacid -) 1 tab PO BID [facility] Last Admin: 12/15/19 21:53 Dose: 1 tab Documented by: Lisinopril (Prinivil) 10 mg PO DAILY [facility] Multivitamins/Minerals/Vitamin C (Tab-A-Vit -) 1 tab PO DAILY [facility] Last Admin: 12/15/19 10:27 Dose: 1 tab Documented by: Pantoprazole Sodium (Protonix -) 40 mg PO DAILY [facility] Last Admin: 12/15/19 13:53 Dose: 40 mg Documented by: Potassium Chloride (K-Dur -) 20 meq PO DAILY [facility] Last Admin: 12/15/19 13:52 Dose: 20 meq Documented by: Tiotropium [place] (Spiriva Respimat) 2 puff IH DAILY [facility] Last Admin: 12/15/19 19:38 Dose: Not Given Documented by: - Objective Vital Signs: Vital Signs Temperature 97.9 F 12/15/19 21:40 Pulse Rate 67 12/15/19 21:40 Respiratory Rate 20 12/15/19 21:40 Blood Pressure 146/72 12/15/19 21:40 O2 Sat by Pulse Oximetry (%) 97 12/15/19 21:40 Constitutional: Yes: Obese Eyes: Yes: Conjunctiva Clear Neck: Yes: Supple Cardiovascular: Yes: S1, S2 Respiratory: Yes: CTA Bilaterally Gastrointestinal: Yes: Normal Bowel Sounds, Soft, Abdomen, Obese Breast(s): Yes: Other (MILD L BREAST TENDERNESS NO ERYTHEMA/FLUCTUANCE) Labs: CBC, BMP 12/15/19 10:26 12/15/19 10:26 Assessment/Plan L BREAST ABSCESS ?IR ASPIRATION PCN ALLERGY CONTINUE EMPIRIC VANCOMYCIN / AZTREONAM
[2019-12-16] MEDS: AZTREONAM 2 GM in DEXTROSE 5%-WATER 100 ML IVPB SCH ×3 (01:11→16:59)
[2019-12-16] MEDS: ACETAMINOPHEN 325 MG TABLET (FP) PO PRN ×3 (06:24→22:54)
[2019-12-16] MEDS: BACLOFEN 10 MG TABLET (FP) PO SCH ×3 (06:25→21:22)
[2019-12-16] MEDS: INSULIN SLIDING SCALE (NOVOLOG) 1 VIAL SQ SCH ×4 (06:25→21:16)
[2019-12-16 08:32] LABS: CALCIUM 8.8 mg/dL (8.5-10.1); CREATININE 0.7 mg/dL (0.55-1.3); POTASSIUM 4.6 mmol/L (3.5-5.1)
--- NOTE | 2019-12-16 08:37 | PN ---
Progress Note (short form) - Note Progress Note: Pt seen and examined. Reports she has persistent pain in L breast unchanged from yesterday. Tolerating diet, has been oob. Denies cp/sob, n/v/d. Vital Signs Temp 97.9 F 12/16/19 05:00 Pulse 68 12/16/19 05:00 Resp 20 12/16/19 05:00 BP 153/82 12/16/19 05:00 Pulse Ox 100 12/16/19 05:00 Intake & Output 12/15/19 12/15/19 12/16/19 11:59 23:59 11:59 Intake Total 250 1990 750 Output Total 100 1500 800 Balance 150 490 -50 Weight 489 lb 9.6 oz 489 lb 6.4 oz Intake: IV 250 Midline Catheter 250 IVPB 350 Oral 1640 500 Oral Supplement 250 Output: Urine 100 1500 800 External Catheter 100 1500 800 Other: Voiding Method Incontinent Incontinent # Unmeasured Voids External Catheter 2 Void 4 Bowel Movement No Yes Yes Weight Measurement Method Built in Bedscale Built in Bedscale CBC, BMP 12/15/19 10:26 12/16/19 06:50 Gen: awake, alert, nad Resp: unlabored on ra Breast: Left breast with mild erythema noted on lateral aspect, no palpable fluid collection, no area of induration appreciated on exam, +ttp entire left breast. No fluctuance appreciated, no crepitus. A/P: 49 y/o F from [facility] ([facility]) w/ PMHx Asthma, DM, CHF, GRETCHEN, GERD, Pneumonia, morbid Obesity, Celluitis (on Clindamycin), recent admitted for non- Covid pneumonia discharged two weeks ago, now a/w worsening SOB general surgery consulted for evaluation of left breast cellulitis/abscess. left breast with ? cellulitis, no abscess identified on exam afebrile, no cbc for today continue frequent breast checks continue iv abx per ID will follow d/w attending Dr Alfaro <Tg Valles - Last Filed: 12/16/19 12:57> - Note Progress Note: Attending Surgeon: I personally saw and examined the patient. My examination reveals a patient with cellulitis/possible left breast abscess. I discussed the case with the surgical PA and agree with their findings and plan of care with any exceptions as noted. ~ Delgado Alfaro MD, FACS <Delgado Alfaro - Last Filed: 12/16/19 20:04>
[2019-12-16] MEDS: VANCOMYCIN HCL 1,250 MG in DEXTROSE 5%-WATER - 250 ML IVPB SCH ×2 (09:30→21:16)
[2019-12-16] MEDS ORDERED: PT OWN MED DRAWER 7, Y5N ONE ×3 (10:03→21:01)
[2019-12-16] MEDS: APIXABAN 5 MG TABLET PO SCH (10:08)
[2019-12-16] MEDS: FUROSEMIDE 40 MG/4 ML INJECTABLE VIAL IVPUSH SCH (10:08)
[2019-12-16] MEDS: MULTIVITAMINS (DAILY MVI) TABLET (FP) PO SCH (10:08)
[2019-12-16] MEDS: amLODIPine BESYLATE 5 MG TABLET (FP) PO SCH (10:09)
[2019-12-16] MEDS: POTASSIUM CHLORIDE TABS 20 MEQ TABLET.ER (FP) PO SCH (10:09)
[2019-12-16] MEDS: TIOTROPIUM BROMIDE 2.5 MCG (SPIRIVA) RESPIMAT INHALER IH SCH (10:09)
[2019-12-16] MEDS: BUDESONIDE/FORMETEROL FUMARATE 160/4.5 mcg INHALER IH SCH ×2 (10:09→21:15)
[2019-12-16] MEDS: LISINOPRIL 10 MG TABLET (FP) PO SCH (10:09)
[2019-12-16] MEDS: LACTOBACILLUS ACIDOPHILUS 1 TABLET PO SCH ×2 (10:09→21:16)
[2019-12-16] MEDS: PANTOPRAZOLE 40 MG TABLET PO SCH (10:09)
--- NOTE | 2019-12-16 10:35 | PN ---
Progress Note, Physician Chief Complaint: Reports no dyspnea - Current Medication List Current Medications: Active Medications Acetaminophen (Tylenol -) 650 mg PO Q6H PRN PRN Reason: PAIN LEVEL 4 - 6 Last Admin: 12/16/19 06:24 Dose: 650 mg Documented by: Albuterol Sulfate (Ventolin Hfa Inhaler -) 2 puff IH Q6H PRN PRN Reason: SHORTNESS OF BREATH Last Admin: 12/15/19 12:18 Dose: 2 puff Documented by: Amlodipine Besylate (Norvasc -) 5 mg PO DAILY [facility] Last Admin: 12/16/19 10:09 Dose: 5 mg Documented by: Apixaban (Eliquis -) 5 mg PO BID [facility] Last Admin: 12/16/19 10:08 Dose: 5 mg Documented by: Baclofen (Lioresal -) 10 mg PO TID [facility] Last Admin: 12/16/19 06:25 Dose: 10 mg Documented by: Budesonide/Formoterol Fumarate (Symbicort 160/4.5mcg -) 1 puff IH BID [facility] Last Admin: 12/16/19 10:09 Dose: 1 puff Documented by: Furosemide (Lasix Injection -) 40 mg IVPUSH DAILY [facility] Last Admin: 12/16/19 10:08 Dose: 40 mg Documented by: Aztreonam 2 gm/ Dextrose 100 mls @ 100 mls/hr IVPB Q8H-IV [facility]; Protocol Last Admin: 12/16/19 10:08 Dose: 100 mls/hr Documented by: Vancomycin HCl 1,250 mg/ (Dextrose) 250 mls @ 166.667 mls/hr IVPB Q12H [facility]; Protocol Last Admin: 12/16/19 09:30 Dose: 166.667 mls/hr Documented by: Insulin Aspart (Novolog Vial Sliding Scale -) 1 vial SQ ACHS [facility]; Protocol Last Admin: 12/16/19 06:25 Dose: 2 units Documented by: Lactobacillus Acidophilus (Bacid -) 1 tab PO BID [facility] Last Admin: 12/16/19 10:09 Dose: 1 tab Documented by: Lisinopril (Prinivil) 10 mg PO DAILY [facility] Last Admin: 12/16/19 10:09 Dose: 10 mg Documented by: Multivitamins/Minerals/Vitamin C (Tab-A-Vit -) 1 tab PO DAILY [facility] Last Admin: 12/16/19 10:08 Dose: 1 tab Documented by: Pantoprazole Sodium (Protonix -) 40 mg PO DAILY [facility] Last Admin: 12/16/19 10:09 Dose: 40 mg Documented by: Potassium Chloride (K-Dur -) 20 meq PO DAILY [facility] Last Admin: 12/16/19 10:09 Dose: 20 meq Documented by: Tiotropium [place] (Spiriva Respimat) 2 puff IH DAILY [facility] Last Admin: 12/16/19 10:09 Dose: 2 puff Documented by: - Objective Vital Signs: Vital Signs Temperature 97.9 F 12/16/19 05:00 Pulse Rate 68 12/16/19 05:00 Respiratory Rate 20 12/16/19 05:00 Blood Pressure 153/82 12/16/19 05:00 O2 Sat by Pulse Oximetry (%) 97 12/16/19 08:36 Constitutional: Yes: Well Nourished, No Distress Eyes: Yes: Conjunctiva Clear HENT: Yes: Atraumatic, Normocephalic Neck: Yes: Supple, Trachea Midline Cardiovascular: Yes: Regular Rate and Rhythm. No: JVD Respiratory: Yes: CTA Bilaterally Gastrointestinal: Yes: Normal Bowel Sounds Edema: Yes Edema: LLE: Trace, RLE: Trace Labs: CBC, BMP 12/15/19 10:26 12/16/19 06:50 Problem List - Problems (1) Asthma exacerbation Code(s): J45.901 - UNSPECIFIED ASTHMA WITH (ACUTE) EXACERBATION (2) CHF exacerbation Code(s): I50.9 - HEART FAILURE, UNSPECIFIED Assessment/Plan 49 y.o.femalew/ a PMH ofasthma, DM, GRETCHEN, GERD, HTN, morbid obesity, s/p partial thyroidectomy, recently admitted for pneumia covid negative admitted with sob. Noted with breast abcess. No cp, orthopnea, PND or edema. Echo at [facility] August 2018 TDS, nlef. CXR mild chf poor effort bnp mildly elevated. Plan -last echo at [facility] 2019 too TDS to evaluate cardiac structures. -morbid obesity can also raise BNP to these levels, but may have mild acute on chronic diastolic chf. - BNP -Nebs
--- NOTE | 2019-12-16 10:48 | PN ---
Progress Note, Physician Chief Complaint: CHF Shortness of breath Left breast cellulitis History of Present Illness: NAD SOB improved eating lunch Got oob with PT COVID PCR negative - Current Medication List Current Medications: Active Medications Acetaminophen (Tylenol -) 650 mg PO Q6H PRN PRN Reason: PAIN LEVEL 4 - 6 Last Admin: 12/16/19 06:24 Dose: 650 mg Documented by: Albuterol Sulfate (Ventolin Hfa Inhaler -) 2 puff IH Q6H PRN PRN Reason: SHORTNESS OF BREATH Last Admin: 12/15/19 12:18 Dose: 2 puff Documented by: Amlodipine Besylate (Norvasc -) 5 mg PO DAILY [facility] Last Admin: 12/16/19 10:09 Dose: 5 mg Documented by: Apixaban (Eliquis -) 5 mg PO BID [facility] Last Admin: 12/16/19 10:08 Dose: 5 mg Documented by: Baclofen (Lioresal -) 10 mg PO TID [facility] Last Admin: 12/16/19 06:25 Dose: 10 mg Documented by: Budesonide/Formoterol Fumarate (Symbicort 160/4.5mcg -) 1 puff IH BID [facility] Last Admin: 12/16/19 10:09 Dose: 1 puff Documented by: Furosemide (Lasix Injection -) 40 mg IVPUSH DAILY [facility] Last Admin: 12/16/19 10:08 Dose: 40 mg Documented by: Aztreonam 2 gm/ Dextrose 100 mls @ 100 mls/hr IVPB Q8H-IV [facility]; Protocol Last Admin: 12/16/19 10:08 Dose: 100 mls/hr Documented by: Vancomycin HCl 1,250 mg/ (Dextrose) 250 mls @ 166.667 mls/hr IVPB Q12H [facility]; Protocol Last Admin: 12/16/19 09:30 Dose: 166.667 mls/hr Documented by: Insulin Aspart (Novolog Vial Sliding Scale -) 1 vial SQ ACHS [facility]; Protocol Last Admin: 12/16/19 06:25 Dose: 2 units Documented by: Lactobacillus Acidophilus (Bacid -) 1 tab PO BID [facility] Last Admin: 12/16/19 10:09 Dose: 1 tab Documented by: Lisinopril (Prinivil) 10 mg PO DAILY [facility] Last Admin: 12/16/19 10:09 Dose: 10 mg Documented by: Multivitamins/Minerals/Vitamin C (Tab-A-Vit -) 1 tab PO DAILY [facility] Last Admin: 12/16/19 10:08 Dose: 1 tab Documented by: Pantoprazole Sodium (Protonix -) 40 mg PO DAILY [facility] Last Admin: 12/16/19 10:09 Dose: 40 mg Documented by: Potassium Chloride (K-Dur -) 20 meq PO DAILY [facility] Last Admin: 12/16/19 10:09 Dose: 20 meq Documented by: Tiotropium [place] (Spiriva Respimat) 2 puff IH DAILY [facility] Last Admin: 12/16/19 10:09 Dose: 2 puff Documented by: - Objective Vital Signs: Vital Signs Temperature 97.9 F 12/16/19 05:00 Pulse Rate 68 12/16/19 05:00 Respiratory Rate 20 12/16/19 05:00 Blood Pressure 153/82 12/16/19 05:00 O2 Sat by Pulse Oximetry (%) 97 12/16/19 08:36 Constitutional: Yes: Well Nourished, No Distress, Calm, Obese Cardiovascular: Yes: Regular Rate and Rhythm Respiratory: Yes: Regular, Diminished, On Nasal O2 Gastrointestinal: Yes: Normal Bowel Sounds, Soft, Abdomen, Obese Breast(s): Yes: Left (Areolar cellulitis improved) Musculoskeletal: Yes: Muscle Weakness Extremities: Yes: WNL Edema: Yes Edema: LLE: 2+, RLE: 2+ Peripheral Pulses WNL: Yes Integumentary: Yes: Venous Stasis Changes (BLLE) Neurological: Yes: Alert, Oriented Psychiatric: Yes: Alert, Oriented Labs: CBC, BMP 12/15/19 10:26 12/16/19 06:50 Problem List - Problems (1) Breast abscess Assessment/Plan: -Left breast U/S reviewed -On IV abx-would help with breast cellulitis as well -Surgical consult appreciated Problems reviewed: Yes Code(s): N61.1 - ABSCESS OF THE BREAST AND NIPPLE (2) CHF exacerbation Assessment/Plan: -IV furosemide -CXR possible congestion -Unable to do CT chest due to pt's BMI -Seen by Cardiology -Clinically improved Problems reviewed: Yes Code(s): I50.9 - HEART FAILURE, UNSPECIFIED (3) Diabetes mellitus Assessment/Plan: -A1c at 10.5 -BGM AC HS -ISS -Diabetic low sodium diet -Start Metformin 850 mg po bid Problems reviewed: Yes Code(s): E11.9 - TYPE 2 DIABETES MELLITUS WITHOUT COMPLICATIONS (4) Severe obesity (BMI >= 40) Assessment/Plan: -Low calorie diet Problems reviewed: Yes Code(s): E66.01 - MORBID (SEVERE) OBESITY DUE TO EXCESS CALORIES (5) SOB (shortness of breath) Assessment/Plan: -Pulmonary on board -CXR reviewed -COVID 19-PCR negative -Unable to do CT chest 2/2 to BMI -Bronchodilators -O2 tx to keep SpO2>90% -BIPAP PRN -D/C eliquis -Will start DVT ppx -ID on board Problems reviewed: Yes Code(s): R06.02 - SHORTNESS OF BREATH Assessment/Plan See problem list
--- NOTE | 2019-12-16 12:53 | PN ---
Progress Note (short form) - Note Progress Note: Breathing feels a little better today. Used NIPPV overnight with good effect. No CP. Intake & Output 12/13/19 12/14/19 12/15/19 12/16/19 23:59 23:59 23:59 23:59 Intake Total 1000 2240 750 Output Total 300 1600 800 Balance 700 640 -50 Weight 350 lb 498 lb 489 lb 9.6 oz 489 lb 6.4 oz Last Vital Signs Temp Pulse Resp BP Pulse Ox 98.2 F 63 18 147/88 100 12/16/19 09:00 12/16/19 09:00 12/16/19 09:00 12/16/19 09:00 12/16/19 09:00 Active Medications Acetaminophen (Tylenol -) 650 mg PO Q6H PRN PRN Reason: PAIN LEVEL 4 - 6 Last Admin: 12/16/19 06:24 Dose: 650 mg Documented by: Albuterol Sulfate (Ventolin Hfa Inhaler -) 2 puff IH Q6H PRN PRN Reason: SHORTNESS OF BREATH Last Admin: 12/15/19 12:18 Dose: 2 puff Documented by: Amlodipine Besylate (Norvasc -) 5 mg PO DAILY [facility] Last Admin: 12/16/19 10:09 Dose: 5 mg Documented by: Baclofen (Lioresal -) 10 mg PO TID [facility] Last Admin: 12/16/19 06:25 Dose: 10 mg Documented by: Budesonide/Formoterol Fumarate (Symbicort 160/4.5mcg -) 1 puff IH BID [facility] Last Admin: 12/16/19 10:09 Dose: 1 puff Documented by: Enoxaparin Sodium (Lovenox -) 40 mg SQ BID [facility] Furosemide (Lasix Injection -) 40 mg IVPUSH DAILY [facility] Last Admin: 12/16/19 10:08 Dose: 40 mg Documented by: Aztreonam 2 gm/ Dextrose 100 mls @ 100 mls/hr IVPB Q8H-IV [facility]; Protocol Last Admin: 12/16/19 10:08 Dose: 100 mls/hr Documented by: Vancomycin HCl 1,250 mg/ (Dextrose) 250 mls @ 166.667 mls/hr IVPB Q12H [facility]; Protocol Last Admin: 12/16/19 09:30 Dose: 166.667 mls/hr Documented by: Insulin Aspart (Novolog Vial Sliding Scale -) 1 vial SQ ACHS [facility]; Protocol Last Admin: 12/16/19 11:56 Dose: 6 units Documented by: Lactobacillus Acidophilus (Bacid -) 1 tab PO BID [facility] Last Admin: 12/16/19 10:09 Dose: 1 tab Documented by: Lisinopril (Prinivil) 10 mg PO DAILY [facility] Last Admin: 12/16/19 10:09 Dose: 10 mg Documented by: Metformin HCl (Glucophage -) 850 mg PO BID@0700,1630 [facility] Multivitamins/Minerals/Vitamin C (Tab-A-Vit -) 1 tab PO DAILY [facility] Last Admin: 12/16/19 10:08 Dose: 1 tab Documented by: Pantoprazole Sodium (Protonix -) 40 mg PO DAILY [facility] Last Admin: 12/16/19 10:09 Dose: 40 mg Documented by: Potassium Chloride (K-Dur -) 20 meq PO DAILY [facility] Last Admin: 12/16/19 10:09 Dose: 20 meq Documented by: Tiotropium [place] (Spiriva Respimat) 2 puff IH DAILY [facility] Last Admin: 12/16/19 10:09 Dose: 2 puff Documented by: Constitutional: Yes: NAD Eyes: Yes: Conjunctiva Clear, EOM Intact HENT: Yes: Atraumatic, Normocephalic Neck: Yes: Supple, Trachea Midline Cardiovascular: Yes: Regular Rate and Rhythm Respiratory: Yes: Diminished throughout ...Clubbing: No Gastrointestinal: Yes: Normal Bowel Sounds, Soft, Abdomen, Obese. No: Tenderness Edema: Yes Neurological: Yes: Alert, Oriented Labs: Laboratory Results - last 24 hr 12/14/19 12/15/19 12/15/19 06:00 16:47 19:10 Sodium Potassium Chloride Carbon Dioxide Anion Gap BUN Creatinine Est GFR (CKD-EPI)AfAm Est GFR (CKD-EPI)NonAf POC Glucometer 228 Random Glucose Hemoglobin A1c % 10.5 H Calcium COVID-19 ([facility]) Not detected 12/15/19 12/16/19 12/16/19 21:43 06:22 06:50 Sodium 140 Potassium 4.6 Chloride 104 Carbon Dioxide 31 Anion Gap 5 L BUN 16.0 Creatinine 0.7 Est GFR (CKD-EPI)AfAm 117.91 Est GFR (CKD-EPI)NonAf 101.74 POC Glucometer 249 196 Random Glucose 225 H Hemoglobin A1c % Calcium 8.8 COVID-19 ([facility]) 12/16/19 11:49 Sodium Potassium Chloride Carbon Dioxide Anion Gap BUN Creatinine Est GFR (CKD-EPI)AfAm Est GFR (CKD-EPI)NonAf POC Glucometer 257 Random Glucose Hemoglobin A1c % Calcium COVID-19 ([facility]) Imaging - Results Chest X-ray: Report Reviewed, Image Reviewed (pulmonary vascular congestion) Assessment/Plan Acute on Chronic Diastolic Heart Failure Morbid Obesity GRETCHEN/OHS Asthma HTN DM - Lasix - monitor urine output, creatinine - O2 to keep SpO2 >90% - inhaled bronchodilators as needed - continue empiric anticoagulation - NIPPV support increased as patient reports she thinks she in on 14 or 16 cm H2O at home Dr Medrano
[2019-12-16] MEDS ORDERED: ONDANSETRON 4 MG/2 ML VIAL IVPUSH PRN (19:54)
[2019-12-16] MEDS: ALBUTEROL SO4 HFA INHALER IH PRN (20:53)
[2019-12-16] MEDS: ENOXAPARIN NA (PORCINE) 40 MG/0.4 ML DISP.SYRIN SQ SCH (21:15)
[2019-12-17] MEDS ORDERED: PT OWN MED DRAWER 7, Y5N ONE ×5 (01:36→22:15)
[2019-12-17] MEDS: AZTREONAM 2 GM in DEXTROSE 5%-WATER 100 ML IVPB SCH ×3 (01:53→18:54)
[2019-12-17] MEDS: ACETAMINOPHEN 325 MG TABLET (FP) PO PRN (04:39)
[2019-12-17] MEDS: INSULIN SLIDING SCALE (NOVOLOG) 1 VIAL SQ SCH ×5 (06:30→22:33)
[2019-12-17] MEDS: BACLOFEN 10 MG TABLET (FP) PO SCH ×3 (06:40→22:33)
--- NOTE | 2019-12-17 06:49 | HOSP ---
Subjective - Review of Symptoms Events since last encounter: Hospitalist Encounter Notified by the RN that the patient c/o chest pain, was asked to assess. Arrived to bedside, patient is alert, awake and oriented, on BIPAP. She reports having right sided CP non-radiating, without increased SOB, started 1hr ago. Patient examined Plan: EKG- stat Troponin I- stat Cardiovascular: Yes: Chest Pain Physical Examination Vital Signs: Vital Signs Temperature 97.9 F 12/17/19 05:43 Pulse Rate 59 L 12/17/19 05:43 Respiratory Rate 22 H 12/17/19 05:43 Blood Pressure 133/68 12/17/19 05:43 O2 Sat by Pulse Oximetry (%) 100 12/17/19 05:43 Constitutional: Yes: Well Nourished, No Distress, Calm, Obese Eyes: Yes: WNL, Conjunctiva Clear, EOM Intact, PERRL HENT: Yes: WNL, Atraumatic, Normocephalic Neck: Yes: WNL, Supple, Trachea Midline Cardiovascular: Yes: Bradycardia, S1, S2 Respiratory: Yes: Diminished (bases), On BiPap, SOB on Exertion. No: Accessory Muscle Use Gastrointestinal: Yes: Normal Bowel Sounds, Soft, Abdomen, Obese ...Rectal Exam: Yes: Deferred Renal/: Yes: WNL Breast(s): Yes: Left, Dimpling, Other (TTP to underside L- breast) Edema: Yes (lymphedema LLE) Edema: LLE: 2+, RLE: 2+ Peripheral Pulses WNL: Yes Neurological: Yes: Alert, Oriented, Cran Nerves II-XII Intact ...Motor Strength: WNL Psychiatric: Yes: Alert, Oriented Labs: CBC, BMP 12/15/19 10:26 12/16/19 06:50 Hospitalist Encounter Assessment: This is a 49 y/o female from [facility]) with a PMHx Asthma, DM, CHF, GRETCHEN, GERD, Pneumonia, Severe Obesity, Celluitis (on Clindamycin), recent admitted for non-Covid pneumonia discharged two weeks ago. Admitted M/S Breast Abscess, Asthma Exacerbation, CHF Exacerbation Outcome: EKG reviewed SB no change compared to prior study Troponin- pending Patient reports CP resolved Will continue to monitor, PMD to resume care in am Critical Care Total Critical Care Time (in minutes): 32 Critical Care Statement: The care of this patient involved high complexity decision making to prevent further life threatening deterioration of the patient's condition and/or to evaluate & treat vital organ system(s) failure or risk of failure.
[2019-12-17 08:30] LABS: ANION GAP 5 MMOL/L (8-16); BLOOD UREA NITROGEN 14.3 mg/dL (7-18); CHLORIDE 102 mmol/L (98-107); CO2 31 mmol/L (21-32); CREATININE 0.7 mg/dL (0.55-1.3); GLUCOSE,RANDOM 235 mg/dL (74-106); N-TERMINAL BNP 47.4 pg/ml (5-125); POTASSIUM 4.6 mmol/L (3.5-5.1); SODIUM 138 mmol/L (136-145)
[2019-12-17] MEDS: VANCOMYCIN HCL 1,250 MG in DEXTROSE 5%-WATER - 250 ML IVPB SCH ×2 (08:59→22:33)
--- NOTE | 2019-12-17 09:13 | PN ---
Progress Note (short form) - Note Progress Note: Pt seen and examined. Reports improvement in L breast pain. Tolerating diet, has been oob. Denies cp/sob, n/v/d. Vital Signs Temp 97.9 F 12/17/19 05:43 Pulse 59 L 12/17/19 05:43 Resp 22 H 12/17/19 05:43 BP 133/68 12/17/19 05:43 Pulse Ox 100 12/17/19 05:43 Intake & Output 12/16/19 12/16/19 12/17/19 11:59 23:59 11:59 Intake Total 750 1650 550 Output Total 800 2100 500 Balance -50 -450 50 Weight 489 lb 6.4 oz 485 lb 0.271 oz Intake: IV 250 Midline Catheter 250 IVPB 700 350 Oral 500 950 200 Output: Urine 800 2100 500 External Catheter 800 2100 500 Other: Voiding Method Incontinent External Catheter Bowel Movement Yes Yes No # Bowel Movements 2 Weight Measurement Method Built in Bedscale Built in Bedscale CBC, BMP 12/15/19 10:26 12/17/19 06:45 Gen: awake, alert, nad Resp: unlabored on ra Breast: Left breast with no erythema noted, no palpable fluid collection, no a daniella of induration appreciated on exam, +ttp at [place]. No fluctuance appreciated, no crepitus. A/P: 49 y/o F from [facility] ([facility] w/ PMHx Asthma, DM, CHF, GRETCHEN, GERD, Pneumonia, morbid Obesity, Celluitis (on Clindamycin), recent admitted for non- Covid pneumonia discharged two weeks ago, now a/w worsening SOB general surgery consulted for evaluation of left breast cellulitis/abscess. left breast with no current evidence of cellulitis, no abscess identified on exam, retroareolar pain afebrile, no cbc for today continue frequent breast checks continue iv abx per ID Glucose control d/w attending Dr Alfaro <Tg Valles - Last Filed: 12/17/19 15:13> - Note Progress Note: Attending Surgeon: I personally saw and examined the patient. My examination reveals a patient with left breast pain. I discussed the case with the surgical PA and agree with their findings and plan of care with any exceptions as noted. Reconsult prn and continue medical management. Delgado Alfaro MD, FACS <Delgado Alfaro - Last Filed: 12/18/19 06:57>
--- NOTE | 2019-12-17 10:40 | PN ---
Progress Note, Physician Chief Complaint: Reports no dyspnea Events noted. Right sided sharp chest pain now with some soreness on palpation. - Current Medication List Current Medications: Active Medications Acetaminophen (Tylenol -) 650 mg PO Q6H PRN PRN Reason: PAIN LEVEL 4 - 6 Last Admin: 12/17/19 04:39 Dose: 650 mg Documented by: Albuterol Sulfate (Ventolin Hfa Inhaler -) 2 puff IH Q6H PRN PRN Reason: SHORTNESS OF BREATH Last Admin: 12/16/19 20:53 Dose: 2 puff Documented by: Amlodipine Besylate (Norvasc -) 5 mg PO DAILY [facility] Last Admin: 12/16/19 10:09 Dose: 5 mg Documented by: Baclofen (Lioresal -) 10 mg PO TID [facility] Last Admin: 12/17/19 06:40 Dose: 10 mg Documented by: Budesonide/Formoterol Fumarate (Symbicort 160/4.5mcg -) 1 puff IH BID [facility] Last Admin: 12/16/19 21:15 Dose: 1 puff Documented by: Enoxaparin Sodium (Lovenox -) 40 mg SQ BID [facility] Last Admin: 12/16/19 21:15 Dose: 40 mg Documented by: Furosemide (Lasix Injection -) 40 mg IVPUSH DAILY [facility] Last Admin: 12/16/19 10:08 Dose: 40 mg Documented by: Aztreonam 2 gm/ Dextrose 100 mls @ 100 mls/hr IVPB Q8H-IV [facility]; Protocol Last Admin: 12/17/19 01:53 Dose: 100 mls/hr Documented by: Vancomycin HCl 1,250 mg/ (Dextrose) 250 mls @ 166.667 mls/hr IVPB Q12H [facility]; Protocol Last Admin: 12/17/19 08:59 Dose: 166.667 mls/hr Documented by: Insulin Aspart (Novolog Vial Sliding Scale -) 1 vial SQ ACHS [facility]; Protocol Last Admin: 12/17/19 06:41 Dose: 4 units Documented by: Lactobacillus Acidophilus (Bacid -) 1 tab PO BID [facility] Last Admin: 12/16/19 21:16 Dose: 1 tab Documented by: Lisinopril (Prinivil) 10 mg PO DAILY [facility] Last Admin: 12/16/19 10:09 Dose: 10 mg Documented by: Metformin HCl (Glucophage -) 850 mg PO BID@0700,1630 [facility] Last Admin: 12/17/19 06:41 Dose: 850 mg Documented by: Multivitamins/Minerals/Vitamin C (Tab-A-Vit -) 1 tab PO DAILY [facility] Last Admin: 12/16/19 10:08 Dose: 1 tab Documented by: Ondansetron HCl (Zofran Injection) 4 mg IVPUSH Q6H PRN PRN Reason: NAUSEA AND/OR VOMITING Last Admin: 12/17/19 06:41 Dose: 4 mg Documented by: Pantoprazole Sodium (Protonix -) 40 mg PO DAILY [facility] Last Admin: 12/16/19 10:09 Dose: 40 mg Documented by: Potassium Chloride (K-Dur -) 20 meq PO DAILY [facility] Last Admin: 12/16/19 10:09 Dose: 20 meq Documented by: Tiotropium [place] (Spiriva Respimat) 2 puff IH DAILY [facility] Last Admin: 12/16/19 10:09 Dose: 2 puff Documented by: - Objective Vital Signs: Vital Signs Temperature 97.9 F 12/17/19 05:43 Pulse Rate 59 L 12/17/19 05:43 Respiratory Rate 22 H 12/17/19 05:43 Blood Pressure 133/68 12/17/19 05:43 O2 Sat by Pulse Oximetry (%) 100 12/17/19 05:43 Constitutional: Yes: Well Nourished, No Distress Eyes: Yes: Conjunctiva Clear HENT: Yes: Atraumatic Neck: Yes: Supple, Trachea Midline Cardiovascular: Yes: Regular Rate and Rhythm. No: JVD Respiratory: Yes: Regular, CTA Bilaterally Labs: CBC, BMP 12/15/19 10:26 12/17/19 06:45 Problem List - Problems (1) Asthma exacerbation Code(s): J45.901 - UNSPECIFIED ASTHMA WITH (ACUTE) EXACERBATION (2) CHF exacerbation Code(s): I50.9 - HEART FAILURE, UNSPECIFIED Assessment/Plan 49 y.o.femalew/ a PMH ofasthma, DM, GRETCHEN, GERD, HTN, morbid obesity, s/p partial thyroidectomy, recently admitted for pneumia covid negative admitted with sob. Noted with breast abcess. No cp, orthopnea, PND or edema. Echo at [facility] August 2018 TDS, nlef. CXR mild chf poor effort bnp mildly elevated. Plan Reduce Lasix 20mg PO daily and continue for 5-7 days then stop. Non-cardiac chest pain was reproducible. No further recs at this time. Will see as needed.
[2019-12-17] MEDS: MULTIVITAMINS (DAILY MVI) TABLET (FP) PO SCH (10:42)
[2019-12-17] MEDS: TIOTROPIUM BROMIDE 2.5 MCG (SPIRIVA) RESPIMAT INHALER IH SCH (10:42)
[2019-12-17] MEDS: BUDESONIDE/FORMETEROL FUMARATE 160/4.5 mcg INHALER IH SCH ×2 (10:42→22:34)
--- NOTE | 2019-12-17 10:42 | PN ---
Progress Note, Physician Chief Complaint: CHF Shortness of breath Left breast cellulitis History of Present Illness: NAD SOB improved eating lunch Got oob with PT COVID PCR negative - Current Medication List Current Medications: Active Medications Acetaminophen (Tylenol -) 650 mg PO Q6H PRN PRN Reason: PAIN LEVEL 4 - 6 Last Admin: 12/17/19 04:39 Dose: 650 mg Documented by: Albuterol Sulfate (Ventolin Hfa Inhaler -) 2 puff IH Q6H PRN PRN Reason: SHORTNESS OF BREATH Last Admin: 12/16/19 20:53 Dose: 2 puff Documented by: Amlodipine Besylate (Norvasc -) 5 mg PO DAILY [facility] Last Admin: 12/16/19 10:09 Dose: 5 mg Documented by: Baclofen (Lioresal -) 10 mg PO TID [facility] Last Admin: 12/17/19 06:40 Dose: 10 mg Documented by: Budesonide/Formoterol Fumarate (Symbicort 160/4.5mcg -) 1 puff IH BID [facility] Last Admin: 12/16/19 21:15 Dose: 1 puff Documented by: Enoxaparin Sodium (Lovenox -) 40 mg SQ BID [facility] Last Admin: 12/16/19 21:15 Dose: 40 mg Documented by: Furosemide (Lasix Injection -) 40 mg IVPUSH DAILY [facility] Last Admin: 12/16/19 10:08 Dose: 40 mg Documented by: Aztreonam 2 gm/ Dextrose 100 mls @ 100 mls/hr IVPB Q8H-IV [facility]; Protocol Last Admin: 12/17/19 01:53 Dose: 100 mls/hr Documented by: Vancomycin HCl 1,250 mg/ (Dextrose) 250 mls @ 166.667 mls/hr IVPB Q12H [facility]; Protocol Last Admin: 12/17/19 08:59 Dose: 166.667 mls/hr Documented by: Insulin Aspart (Novolog Vial Sliding Scale -) 1 vial SQ ACHS [facility]; Protocol Last Admin: 12/17/19 06:41 Dose: 4 units Documented by: Lactobacillus Acidophilus (Bacid -) 1 tab PO BID [facility] Last Admin: 12/16/19 21:16 Dose: 1 tab Documented by: Lisinopril (Prinivil) 10 mg PO DAILY [facility] Last Admin: 12/16/19 10:09 Dose: 10 mg Documented by: Metformin HCl (Glucophage -) 850 mg PO BID@0700,1630 [facility] Last Admin: 12/17/19 06:41 Dose: 850 mg Documented by: Multivitamins/Minerals/Vitamin C (Tab-A-Vit -) 1 tab PO DAILY [facility] Last Admin: 12/16/19 10:08 Dose: 1 tab Documented by: Ondansetron HCl (Zofran Injection) 4 mg IVPUSH Q6H PRN PRN Reason: NAUSEA AND/OR VOMITING Last Admin: 12/17/19 06:41 Dose: 4 mg Documented by: Pantoprazole Sodium (Protonix -) 40 mg PO DAILY [facility] Last Admin: 12/16/19 10:09 Dose: 40 mg Documented by: Potassium Chloride (K-Dur -) 20 meq PO DAILY [facility] Last Admin: 12/16/19 10:09 Dose: 20 meq Documented by: Tiotropium [place] (Spiriva Respimat) 2 puff IH DAILY [facility] Last Admin: 12/16/19 10:09 Dose: 2 puff Documented by: - Objective Vital Signs: Vital Signs Temperature 97.9 F 12/17/19 05:43 Pulse Rate 59 L 12/17/19 05:43 Respiratory Rate 22 H 12/17/19 05:43 Blood Pressure 133/68 12/17/19 05:43 O2 Sat by Pulse Oximetry (%) 100 12/17/19 05:43 Constitutional: Yes: Well Nourished, No Distress, Calm, Obese Cardiovascular: Yes: Regular Rate and Rhythm Respiratory: Yes: Regular, Diminished, On Nasal O2 Gastrointestinal: Yes: Soft, Abdomen, Obese Genitourinary: Yes: WNL Breast(s): Yes: Left (areolar warm to touch) Musculoskeletal: Yes: Muscle Weakness Extremities: Yes: WNL Edema: Yes Edema: LLE: 1+, RLE: 1+ Peripheral Pulses WNL: Yes Neurological: Yes: Alert, Oriented Psychiatric: Yes: Alert, Oriented Labs: CBC, BMP 12/15/19 10:26 12/17/19 06:45 Problem List - Problems (1) Breast abscess Assessment/Plan: -Left breast U/S reviewed -On IV abx-would help with left breast areolar cellulitis as well -Surgical consult appreciated Code(s): N61.1 - ABSCESS OF THE BREAST AND NIPPLE (2) CHF exacerbation Assessment/Plan: -IV furosemide -CXR possible congestion -Unable to do CT chest due to pt's BMI -Seen by Cardiology -Clinically improved Problems reviewed: Yes Code(s): I50.9 - HEART FAILURE, UNSPECIFIED (3) Diabetes mellitus Assessment/Plan: -A1c at 10.5 -BGM AC HS -ISS -Diabetic low sodium diet -Start Metformin 850 mg po bid Problems reviewed: Yes Code(s): E11.9 - TYPE 2 DIABETES MELLITUS WITHOUT COMPLICATIONS (4) Severe obesity (BMI >= 40) Assessment/Plan: -Low calorie diet -Bariatric consult Problems reviewed: Yes Code(s): E66.01 - MORBID (SEVERE) OBESITY DUE TO EXCESS CALORIES (5) SOB (shortness of breath) Assessment/Plan: -Pulmonary on board -CXR reviewed -COVID 19-PCR negative -Unable to do CT chest 2/2 to BMI -Bronchodilators -O2 tx to keep SpO2>90% -BIPAP PRN -D/C eliquis -Will start DVT ppx -ID on board -ABG as per pulmonary Problems reviewed: Yes Code(s): R06.02 - SHORTNESS OF BREATH Assessment/Plan See problem list
[2019-12-17] MEDS: ENOXAPARIN NA (PORCINE) 40 MG/0.4 ML DISP.SYRIN SQ SCH ×2 (10:43→22:34)
[2019-12-17] MEDS: LACTOBACILLUS ACIDOPHILUS 1 TABLET PO SCH ×2 (10:43→22:33)
[2019-12-17] MEDS: amLODIPine BESYLATE 5 MG TABLET (FP) PO SCH (10:43)
[2019-12-17] MEDS: FUROSEMIDE 40 MG/4 ML INJECTABLE VIAL IVPUSH SCH (10:43)
[2019-12-17] MEDS: POTASSIUM CHLORIDE TABS 20 MEQ TABLET.ER (FP) PO SCH (10:43)
[2019-12-17] MEDS: LISINOPRIL 10 MG TABLET (FP) PO SCH ×2 (10:43→10:55)
[2019-12-17] MEDS: PANTOPRAZOLE 40 MG TABLET PO SCH (10:43)
[2019-12-17] MEDS ORDERED: INSULIN (NOVOLOG) ASPART 100 UNITS/ML 10ML VIAL ONE ×2 (11:43→22:27)
--- NOTE | 2019-12-17 12:56 | PN ---
Progress Note, Physician History of Present Illness: PULMONARY ALERT,C/O SOB,-COUGH,-CP - Current Medication List Current Medications: Active Medications Acetaminophen (Tylenol -) 650 mg PO Q6H PRN PRN Reason: PAIN LEVEL 4 - 6 Last Admin: 12/17/19 04:39 Dose: 650 mg Documented by: Albuterol Sulfate (Ventolin Hfa Inhaler -) 2 puff IH Q6H PRN PRN Reason: SHORTNESS OF BREATH Last Admin: 12/16/19 20:53 Dose: 2 puff Documented by: Amlodipine Besylate (Norvasc -) 5 mg PO DAILY [facility] Last Admin: 12/17/19 10:43 Dose: 5 mg Documented by: Baclofen (Lioresal -) 10 mg PO TID [facility] Last Admin: 12/17/19 06:40 Dose: 10 mg Documented by: Budesonide/Formoterol Fumarate (Symbicort 160/4.5mcg -) 1 puff IH BID [facility] Last Admin: 12/17/19 10:42 Dose: 1 puff Documented by: Enoxaparin Sodium (Lovenox -) 40 mg SQ BID [facility] Last Admin: 12/17/19 10:43 Dose: 40 mg Documented by: Furosemide (Lasix Injection -) 40 mg IVPUSH DAILY [facility] Last Admin: 12/17/19 10:43 Dose: 40 mg Documented by: Aztreonam 2 gm/ Dextrose 100 mls @ 100 mls/hr IVPB Q8H-IV [facility]; Protocol Last Admin: 12/17/19 10:43 Dose: 100 mls/hr Documented by: Vancomycin HCl 1,250 mg/ (Dextrose) 250 mls @ 166.667 mls/hr IVPB Q12H [facility]; Protocol Last Admin: 12/17/19 08:59 Dose: 166.667 mls/hr Documented by: Insulin Aspart (Novolog Vial Sliding Scale -) 1 vial SQ ACHS [facility]; Protocol Last Admin: 12/17/19 11:48 Dose: 6 units Documented by: Lactobacillus Acidophilus (Bacid -) 1 tab PO BID [facility] Last Admin: 12/17/19 10:43 Dose: 1 tab Documented by: Lisinopril (Prinivil) 10 mg PO DAILY [facility] Last Admin: 12/17/19 10:55 Dose: Not Given Documented by: Metformin HCl (Glucophage -) 850 mg PO BID@0700,1630 [facility] Last Admin: 12/17/19 06:41 Dose: 850 mg Documented by: Multivitamins/Minerals/Vitamin C (Tab-A-Vit -) 1 tab PO DAILY [facility] Last Admin: 12/17/19 10:42 Dose: 1 tab Documented by: Ondansetron HCl (Zofran Injection) 4 mg IVPUSH Q6H PRN PRN Reason: NAUSEA AND/OR VOMITING Last Admin: 12/17/19 06:41 Dose: 4 mg Documented by: Pantoprazole Sodium (Protonix -) 40 mg PO DAILY [facility] Last Admin: 12/17/19 10:43 Dose: 40 mg Documented by: Potassium Chloride (K-Dur -) 20 meq PO DAILY [facility] Last Admin: 12/17/19 10:43 Dose: 20 meq Documented by: Tiotropium [place] (Spiriva Respimat) 2 puff IH DAILY [facility] Last Admin: 12/17/19 10:42 Dose: 2 puff Documented by: - Objective Vital Signs: Vital Signs Temperature 97.8 F 12/17/19 10:00 Pulse Rate 61 12/17/19 10:00 Respiratory Rate 20 12/17/19 10:00 Blood Pressure 141/62 12/17/19 10:00 O2 Sat by Pulse Oximetry (%) 98 12/17/19 10:00 Constitutional: Yes: Calm, Obese Eyes: Yes: WNL HENT: Yes: WNL Neck: Yes: WNL Cardiovascular: Yes: Regular Rate and Rhythm, S1, S2 Respiratory: Yes: Diminished Gastrointestinal: Yes: Normal Bowel Sounds, Soft Extremities: Yes: WNL Edema: Yes Problem List - Problems (1) Breast pain Code(s): N64.4 - MASTODYNIA (2) CHF exacerbation Code(s): I50.9 - HEART FAILURE, UNSPECIFIED (3) GERD (gastroesophageal reflux disease) Code(s): K21.9 - GASTRO-ESOPHAGEAL REFLUX DISEASE WITHOUT ESOPHAGITIS (4) HTN (hypertension) Code(s): I10 - ESSENTIAL (PRIMARY) HYPERTENSION (5) Severe obesity (BMI >= 40) Code(s): E66.01 - MORBID (SEVERE) OBESITY DUE TO EXCESS CALORIES (6) SOB (shortness of breath) Code(s): R06.02 - SHORTNESS OF BREATH (7) Asthma exacerbation Code(s): J45.901 - UNSPECIFIED ASTHMA WITH (ACUTE) EXACERBATION Assessment/Plan Assessment/Plan Acute on Chronic Diastolic Heart Failure Morbid Obesity GRETCHEN/OHS Asthma HTN DM - Lasix - monitor urine output, creatinine - O2 to keep SpO2 >90% - inhaled bronchodilators as needed - continue empiric anticoagulation - NIPPV support increased as patient reports she thinks she in on 14 or 16 cm H2O at home - bariatric surgery evaluation DR LUGO
--- NOTE | 2019-12-17 13:30 | PN ---
Progress Note, Physician History of Present Illness: REPORTS LESS L BREAST PAIN NO C/O F/C TOLERATING ANTIBIOTICS AFEBRILE WBC WNL BC (-) - Current Medication List Current Medications: Active Medications Acetaminophen (Tylenol -) 650 mg PO Q6H PRN PRN Reason: PAIN LEVEL 4 - 6 Last Admin: 12/17/19 04:39 Dose: 650 mg Documented by: Albuterol Sulfate (Ventolin Hfa Inhaler -) 2 puff IH Q6H PRN PRN Reason: SHORTNESS OF BREATH Last Admin: 12/16/19 20:53 Dose: 2 puff Documented by: Amlodipine Besylate (Norvasc -) 5 mg PO DAILY [facility] Last Admin: 12/17/19 10:43 Dose: 5 mg Documented by: Baclofen (Lioresal -) 10 mg PO TID [facility] Last Admin: 12/17/19 06:40 Dose: 10 mg Documented by: Budesonide/Formoterol Fumarate (Symbicort 160/4.5mcg -) 1 puff IH BID [facility] Last Admin: 12/17/19 10:42 Dose: 1 puff Documented by: Enoxaparin Sodium (Lovenox -) 40 mg SQ BID [facility] Last Admin: 12/17/19 10:43 Dose: 40 mg Documented by: Furosemide (Lasix Injection -) 40 mg IVPUSH DAILY [facility] Last Admin: 12/17/19 10:43 Dose: 40 mg Documented by: Aztreonam 2 gm/ Dextrose 100 mls @ 100 mls/hr IVPB Q8H-IV [facility]; Protocol Last Admin: 12/17/19 10:43 Dose: 100 mls/hr Documented by: Vancomycin HCl 1,250 mg/ (Dextrose) 250 mls @ 166.667 mls/hr IVPB Q12H [facility]; Protocol Last Admin: 12/17/19 08:59 Dose: 166.667 mls/hr Documented by: Insulin Aspart (Novolog Vial Sliding Scale -) 1 vial SQ ACHS [facility]; Protocol Last Admin: 12/17/19 11:48 Dose: 6 units Documented by: Lactobacillus Acidophilus (Bacid -) 1 tab PO BID [facility] Last Admin: 12/17/19 10:43 Dose: 1 tab Documented by: Lisinopril (Prinivil) 10 mg PO DAILY [facility] Last Admin: 12/17/19 10:55 Dose: Not Given Documented by: Metformin HCl (Glucophage -) 850 mg PO BID@0700,1630 [facility] Last Admin: 12/17/19 06:41 Dose: 850 mg Documented by: Multivitamins/Minerals/Vitamin C (Tab-A-Vit -) 1 tab PO DAILY [facility] Last Admin: 12/17/19 10:42 Dose: 1 tab Documented by: Ondansetron HCl (Zofran Injection) 4 mg IVPUSH Q6H PRN PRN Reason: NAUSEA AND/OR VOMITING Last Admin: 12/17/19 06:41 Dose: 4 mg Documented by: Pantoprazole Sodium (Protonix -) 40 mg PO DAILY [facility] Last Admin: 12/17/19 10:43 Dose: 40 mg Documented by: Potassium Chloride (K-Dur -) 20 meq PO DAILY [facility] Last Admin: 12/17/19 10:43 Dose: 20 meq Documented by: Tiotropium [place] (Spiriva Respimat) 2 puff IH DAILY [facility] Last Admin: 12/17/19 10:42 Dose: 2 puff Documented by: - Objective Vital Signs: Vital Signs Temperature 97.8 F 12/17/19 10:00 Pulse Rate 61 12/17/19 10:00 Respiratory Rate 20 12/17/19 10:00 Blood Pressure 141/62 12/17/19 10:00 O2 Sat by Pulse Oximetry (%) 98 12/17/19 10:00 Constitutional: Yes: Obese Eyes: Yes: Conjunctiva Clear Cardiovascular: Yes: Regular Rate and Rhythm, S1, S2 Respiratory: Yes: CTA Bilaterally Gastrointestinal: Yes: Normal Bowel Sounds, Soft. No: Tenderness Breast(s): Yes: Other (L BREAST NO ERYTHEMA /WARMTH / TENDERNESS NO FLUCTUANCE) Labs: CBC, BMP 12/15/19 10:26 12/17/19 06:45 Assessment/Plan L BREAST ABSCESS PCN ALLERGY CONTINUE EMPIRIC VANCOMYCIN / AZTREONAM ADDITIONAL 24-48HR OUTPATIENT F/U IMAGING AND BREAST SURGERY EVALUATION
[2019-12-17 15:25] VITALS: BMI 83.2
--- NOTE | 2019-12-17 15:59 | EKG ---
Test Reason : Blood Pressure : / mmHG Vent. Rate : 053 BPM Atrial Rate : 053 BPM P-R Int : 126 ms QRS Dur : 074 ms QT Int : 420 ms P-R-T Axes : 046 -01 026 degrees QTc Int : 394 ms SINUS BRADYCARDIA OTHERWISE NORMAL ECG WHEN COMPARED WITH ECG OF 14-DEC-2019 04:21, NO SIGNIFICANT CHANGE WAS FOUND Confirmed by Aroldo Escalante ([id number]) on 12/17/2019 3:58:53 PM Referred By: Confirmed By:Aroldo Escalante
[2019-12-18] MEDS ORDERED: PT OWN MED DRAWER 7, Y5N ONE ×2 (01:14→21:01)
[2019-12-18] MEDS: AZTREONAM 2 GM in DEXTROSE 5%-WATER 100 ML IVPB SCH ×3 (01:16→17:10)
[2019-12-18] MEDS: ACETAMINOPHEN 325 MG TABLET (FP) PO PRN ×3 (04:53→22:26)
[2019-12-18] MEDS: INSULIN SLIDING SCALE (NOVOLOG) 1 VIAL SQ SCH ×4 (06:37→21:35)
[2019-12-18] MEDS: BACLOFEN 10 MG TABLET (FP) PO SCH ×3 (06:38→21:34)
--- NOTE | 2019-12-18 09:02 | PN ---
Progress Note, Physician - Current Medication List Current Medications: Active Medications Acetaminophen (Tylenol -) 650 mg PO Q6H PRN PRN Reason: PAIN LEVEL 4 - 6 Last Admin: 12/18/19 04:53 Dose: 650 mg Documented by: Albuterol Sulfate (Ventolin Hfa Inhaler -) 2 puff IH Q6H PRN PRN Reason: SHORTNESS OF BREATH Last Admin: 12/16/19 20:53 Dose: 2 puff Documented by: Amlodipine Besylate (Norvasc -) 5 mg PO DAILY [facility] Last Admin: 12/17/19 10:43 Dose: 5 mg Documented by: Baclofen (Lioresal -) 10 mg PO TID [facility] Last Admin: 12/18/19 06:38 Dose: 10 mg Documented by: Budesonide/Formoterol Fumarate (Symbicort 160/4.5mcg -) 1 puff IH BID [facility] Last Admin: 12/17/19 22:34 Dose: 1 puff Documented by: Enoxaparin Sodium (Lovenox -) 40 mg SQ BID [facility] Last Admin: 12/17/19 22:34 Dose: 40 mg Documented by: Furosemide (Lasix Injection -) 40 mg IVPUSH DAILY [facility] Last Admin: 12/17/19 10:43 Dose: 40 mg Documented by: Aztreonam 2 gm/ Dextrose 100 mls @ 100 mls/hr IVPB Q8H-IV [facility]; Protocol Last Admin: 12/18/19 01:16 Dose: 100 mls/hr Documented by: Vancomycin HCl 1,250 mg/ (Dextrose) 250 mls @ 166.667 mls/hr IVPB Q12H [facility]; Protocol Last Admin: 12/17/19 22:33 Dose: 166.667 mls/hr Documented by: Insulin Aspart (Novolog Vial Sliding Scale -) 1 vial SQ ACHS [facility]; Protocol Last Admin: 12/18/19 06:37 Dose: 4 units Documented by: Lactobacillus Acidophilus (Bacid -) 1 tab PO BID [facility] Last Admin: 12/17/19 22:33 Dose: 1 tab Documented by: Lisinopril (Prinivil) 10 mg PO DAILY [facility] Last Admin: 12/17/19 10:55 Dose: Not Given Documented by: Metformin HCl (Glucophage -) 850 mg PO BID@0700,1630 [facility] Last Admin: 12/18/19 06:38 Dose: Not Given Documented by: Multivitamins/Minerals/Vitamin C (Tab-A-Vit -) 1 tab PO DAILY [facility] Last Admin: 12/17/19 10:42 Dose: 1 tab Documented by: Ondansetron HCl (Zofran Injection) 4 mg IVPUSH Q6H PRN PRN Reason: NAUSEA AND/OR VOMITING Last Admin: 12/17/19 06:41 Dose: 4 mg Documented by: Pantoprazole Sodium (Protonix -) 40 mg PO DAILY [facility] Last Admin: 12/17/19 10:43 Dose: 40 mg Documented by: Potassium Chloride (K-Dur -) 20 meq PO DAILY [facility] Last Admin: 12/17/19 10:43 Dose: 20 meq Documented by: Tiotropium [place] (Spiriva Respimat) 2 puff IH DAILY [facility] Last Admin: 12/17/19 10:42 Dose: 2 puff Documented by: - Objective Vital Signs: Vital Signs Temperature 97.1 F L 12/18/19 06:00 Pulse Rate 68 12/18/19 06:00 Respiratory Rate 20 12/18/19 06:00 Blood Pressure 143/60 12/18/19 06:00 O2 Sat by Pulse Oximetry (%) 99 12/18/19 08:59 Cardiovascular: Yes: S1, S2 Respiratory: Yes: Diminished, On BiPap Gastrointestinal: Yes: Normal Bowel Sounds, Soft Labs: CBC, BMP 12/15/19 10:26 Assessment/Plan - Problems (1) Breast abscess Assessment/Plan: -Left breast U/S reviewed -On IV abx-would help with left breast areolar cellulitis as well -Surgical consult appreciated Code(s): N61.1 - ABSCESS OF THE BREAST AND NIPPLE (2) CHF exacerbation Assessment/Plan: -IV furosemide -CXR possible congestion -Unable to do CT chest due to pt's BMI -Seen by Cardiology -Clinically improved Problems reviewed: Yes Code(s): I50.9 - HEART FAILURE, UNSPECIFIED (3) Diabetes mellitus Assessment/Plan: -A1c at 10.5 -BGM AC HS -ISS -Diabetic low sodium diet -Start Metformin 850 mg po bid Problems reviewed: Yes Code(s): E11.9 - TYPE 2 DIABETES MELLITUS WITHOUT COMPLICATIONS (4) Severe obesity (BMI >= 40) Assessment/Plan: -Low calorie diet -Bariatric consult follows at [facility] Problems reviewed: Yes Code(s): E66.01 - MORBID (SEVERE) OBESITY DUE TO EXCESS CALORIES (5) SOB (shortness of breath) Assessment/Plan: -Pulmonary on board -CXR reviewed -COVID 19-PCR negative -Unable to do CT chest 2/2 to BMI -Bronchodilators -O2 tx to keep SpO2>90% -BIPAP PRN -D/C eliquis -Will start DVT ppx -ID on board -ABG as per pulmonary Problems reviewed: Yes Code(s): R06.02 - SHORTNESS OF BREATH
[2019-12-18] MEDS: VANCOMYCIN HCL 1,250 MG in DEXTROSE 5%-WATER - 250 ML IVPB SCH ×2 (09:04→21:34)
[2019-12-18] MEDS: POTASSIUM CHLORIDE TABS 20 MEQ TABLET.ER (FP) PO SCH (09:17)
[2019-12-18] MEDS: LACTOBACILLUS ACIDOPHILUS 1 TABLET PO SCH ×2 (09:17→21:34)
[2019-12-18] MEDS: MULTIVITAMINS (DAILY MVI) TABLET (FP) PO SCH (09:17)
[2019-12-18] MEDS: PANTOPRAZOLE 40 MG TABLET PO SCH (09:17)
[2019-12-18] MEDS: ENOXAPARIN NA (PORCINE) 40 MG/0.4 ML DISP.SYRIN SQ SCH ×2 (09:18→21:34)
[2019-12-18] MEDS: BUDESONIDE/FORMETEROL FUMARATE 160/4.5 mcg INHALER IH SCH ×2 (09:21→21:37)
[2019-12-18] MEDS: TIOTROPIUM BROMIDE 2.5 MCG (SPIRIVA) RESPIMAT INHALER IH SCH (09:22)
[2019-12-18] MEDS: amLODIPine BESYLATE 5 MG TABLET (FP) PO SCH (09:24)
[2019-12-18] MEDS: LISINOPRIL 10 MG TABLET (FP) PO SCH (09:24)
[2019-12-18 09:41] LABS: BLOOD UREA NITROGEN 14.5 mg/dL (7-18); CREATININE 0.7 mg/dL (0.55-1.3); POTASSIUM 4.6 mmol/L (3.5-5.1)
--- NOTE | 2019-12-18 10:13 | PN ---
Progress Note, Physician History of Present Illness: PULMONARY ALERT,COMFORTABLE,-RESP DISTRESS - Current Medication List Current Medications: Active Medications Acetaminophen (Tylenol -) 650 mg PO Q6H PRN PRN Reason: PAIN LEVEL 4 - 6 Last Admin: 12/18/19 04:53 Dose: 650 mg Documented by: Albuterol Sulfate (Ventolin Hfa Inhaler -) 2 puff IH Q6H PRN PRN Reason: SHORTNESS OF BREATH Last Admin: 12/16/19 20:53 Dose: 2 puff Documented by: Amlodipine Besylate (Norvasc -) 5 mg PO DAILY [facility] Last Admin: 12/18/19 09:24 Dose: Not Given Documented by: Baclofen (Lioresal -) 10 mg PO TID [facility] Last Admin: 12/18/19 06:38 Dose: 10 mg Documented by: Budesonide/Formoterol Fumarate (Symbicort 160/4.5mcg -) 1 puff IH BID [facility] Last Admin: 12/18/19 09:21 Dose: 1 puff Documented by: Enoxaparin Sodium (Lovenox -) 40 mg SQ BID [facility] Last Admin: 12/18/19 09:18 Dose: 40 mg Documented by: Furosemide (Lasix Injection -) 40 mg IVPUSH DAILY [facility] Last Admin: 12/17/19 10:43 Dose: 40 mg Documented by: Aztreonam 2 gm/ Dextrose 100 mls @ 100 mls/hr IVPB Q8H-IV [facility]; Protocol Last Admin: 12/18/19 01:16 Dose: 100 mls/hr Documented by: Vancomycin HCl 1,250 mg/ (Dextrose) 250 mls @ 166.667 mls/hr IVPB Q12H [facility]; Protocol Last Admin: 12/18/19 09:04 Dose: 166.667 mls/hr Documented by: Insulin Aspart (Novolog Vial Sliding Scale -) 1 vial SQ ACHS [facility]; Protocol Last Admin: 12/18/19 06:37 Dose: 4 units Documented by: Lactobacillus Acidophilus (Bacid -) 1 tab PO BID [facility] Last Admin: 12/18/19 09:17 Dose: 1 tab Documented by: Lisinopril (Prinivil) 10 mg PO DAILY [facility] Last Admin: 12/18/19 09:24 Dose: Not Given Documented by: Metformin HCl (Glucophage -) 850 mg PO BID@0700,1630 [facility] Last Admin: 12/18/19 06:38 Dose: Not Given Documented by: Multivitamins/Minerals/Vitamin C (Tab-A-Vit -) 1 tab PO DAILY [facility] Last Admin: 12/18/19 09:17 Dose: 1 tab Documented by: Ondansetron HCl (Zofran Injection) 4 mg IVPUSH Q6H PRN PRN Reason: NAUSEA AND/OR VOMITING Last Admin: 12/17/19 06:41 Dose: 4 mg Documented by: Pantoprazole Sodium (Protonix -) 40 mg PO DAILY [facility] Last Admin: 12/18/19 09:17 Dose: 40 mg Documented by: Potassium Chloride (K-Dur -) 20 meq PO DAILY [facility] Last Admin: 12/18/19 09:17 Dose: 20 meq Documented by: Tiotropium [place] (Spiriva Respimat) 2 puff IH DAILY [facility] Last Admin: 12/18/19 09:22 Dose: 2 puff Documented by: - Objective Vital Signs: Vital Signs Temperature 97.1 F L 12/18/19 06:00 Pulse Rate 68 12/18/19 06:00 Respiratory Rate 20 12/18/19 06:00 Blood Pressure 143/60 12/18/19 06:00 O2 Sat by Pulse Oximetry (%) 99 12/18/19 08:59 Constitutional: Yes: Calm, Obese Eyes: Yes: WNL HENT: Yes: WNL Neck: Yes: WNL Cardiovascular: Yes: Regular Rate and Rhythm, S1, S2 Respiratory: Yes: Diminished Gastrointestinal: Yes: Normal Bowel Sounds, Abdomen, Obese Extremities: Yes: WNL Edema: Yes Labs: 12/18/19 07:45 Problem List - Problems (1) Breast pain Code(s): N64.4 - MASTODYNIA (2) CHF exacerbation Code(s): I50.9 - HEART FAILURE, UNSPECIFIED (3) GERD (gastroesophageal reflux disease) Code(s): K21.9 - GASTRO-ESOPHAGEAL REFLUX DISEASE WITHOUT ESOPHAGITIS (4) HTN (hypertension) Code(s): I10 - ESSENTIAL (PRIMARY) HYPERTENSION (5) Severe obesity (BMI >= 40) Code(s): E66.01 - MORBID (SEVERE) OBESITY DUE TO EXCESS CALORIES (6) SOB (shortness of breath) Code(s): R06.02 - SHORTNESS OF BREATH (7) Asthma exacerbation Code(s): J45.901 - UNSPECIFIED ASTHMA WITH (ACUTE) EXACERBATION Assessment/Plan Assessment/Plan Acute on Chronic Diastolic Heart Failure Morbid Obesity GRETCHEN/OHS Asthma HTN DM - Lasix - monitor urine output, creatinine - O2 to keep SpO2 >90% - inhaled bronchodilators as needed - continue empiric anticoagulation - NIPPV support increased as patient reports she thinks she in on 14 or 16 cm H2O at home - abg DR LUGO
[2019-12-18] MEDS ORDERED: INSULIN (NOVOLOG) ASPART 100 UNITS/ML 10ML VIAL ONE ×2 (11:38→21:00)
[2019-12-18] MEDS: FUROSEMIDE 40 MG/4 ML INJECTABLE VIAL IVPUSH SCH (11:58)
[2019-12-18 13:40] LABS: ARTERIAL BLD GAS O2 SATURATION 98.8 mmHg (95-98); ARTERIAL BLOOD GAS BASE EXCESS 3.6 mmol/L (-2-2); ARTERIAL BLOOD GAS PO2 139.2 mmHg (80-100); ARTERIAL BLOOD GAS pH 7.417 (7.350-7.450)
[2019-12-18 13:45] LABS: ALLENS TEST POSITIVE
[2019-12-18] MEDS: ALBUTEROL SO4 HFA INHALER IH PRN (15:46)
[2019-12-19] MEDS ORDERED: PT OWN MED DRAWER 7, Y5N ONE ×3 (01:33→17:32)
[2019-12-19] MEDS: AZTREONAM 2 GM in DEXTROSE 5%-WATER 100 ML IVPB SCH ×3 (01:40→12:24)
[2019-12-19] MEDS: ACETAMINOPHEN 325 MG TABLET (FP) PO PRN (05:57)
[2019-12-19] MEDS: BACLOFEN 10 MG TABLET (FP) PO SCH ×2 (05:58→13:57)
[2019-12-19] MEDS: INSULIN SLIDING SCALE (NOVOLOG) 1 VIAL SQ SCH ×3 (06:04→17:40)
[2019-12-19] MEDS: VANCOMYCIN HCL 1,250 MG in DEXTROSE 5%-WATER - 250 ML IVPB SCH ×2 (08:33→12:24)
--- NOTE | 2019-12-19 10:26 | PN ---
Progress Note, Physician History of Present Illness: pulmonary alert,comfortable,-cp,sob improved - Current Medication List Current Medications: Active Medications Acetaminophen (Tylenol -) 650 mg PO Q6H PRN PRN Reason: PAIN LEVEL 4 - 6 Last Admin: 12/19/19 05:57 Dose: 650 mg Documented by: Albuterol Sulfate (Ventolin Hfa Inhaler -) 2 puff IH Q6H PRN PRN Reason: SHORTNESS OF BREATH Last Admin: 12/18/19 15:46 Dose: 2 puff Documented by: Amlodipine Besylate (Norvasc -) 5 mg PO DAILY [facility] Last Admin: 12/18/19 09:24 Dose: Not Given Documented by: Baclofen (Lioresal -) 10 mg PO TID [facility] Last Admin: 12/19/19 05:58 Dose: 10 mg Documented by: Budesonide/Formoterol Fumarate (Symbicort 160/4.5mcg -) 1 puff IH BID [facility] Last Admin: 12/18/19 21:37 Dose: 1 puff Documented by: Enoxaparin Sodium (Lovenox -) 40 mg SQ BID [facility] Last Admin: 12/18/19 21:34 Dose: 40 mg Documented by: Furosemide (Lasix Injection -) 40 mg IVPUSH DAILY [facility] Last Admin: 12/18/19 11:58 Dose: 40 mg Documented by: Aztreonam 2 gm/ Dextrose 100 mls @ 100 mls/hr IVPB Q8H-IV [facility]; Protocol Last Admin: 12/19/19 10:09 Dose: 100 mls/hr Documented by: Vancomycin HCl 1,250 mg/ (Dextrose) 250 mls @ 166.667 mls/hr IVPB Q12H [facility]; Protocol Last Admin: 12/19/19 08:33 Dose: 166.667 mls/hr Documented by: Insulin Aspart (Novolog Vial Sliding Scale -) 1 vial SQ ACHS [facility]; Protocol Last Admin: 12/19/19 06:04 Dose: 4 units Documented by: Lactobacillus Acidophilus (Bacid -) 1 tab PO BID [facility] Last Admin: 12/18/19 21:34 Dose: 1 tab Documented by: Lisinopril (Prinivil) 10 mg PO DAILY [facility] Last Admin: 12/18/19 09:24 Dose: Not Given Documented by: Metformin HCl (Glucophage -) 850 mg PO BID@0700,1630 [facility] Last Admin: 12/19/19 06:15 Dose: Not Given Documented by: Multivitamins/Minerals/Vitamin C (Tab-A-Vit -) 1 tab PO DAILY [facility] Last Admin: 12/18/19 09:17 Dose: 1 tab Documented by: Ondansetron HCl (Zofran Injection) 4 mg IVPUSH Q6H PRN PRN Reason: NAUSEA AND/OR VOMITING Last Admin: 12/17/19 06:41 Dose: 4 mg Documented by: Pantoprazole Sodium (Protonix -) 40 mg PO DAILY [facility] Last Admin: 12/18/19 09:17 Dose: 40 mg Documented by: Potassium Chloride (K-Dur -) 20 meq PO DAILY [facility] Last Admin: 12/18/19 09:17 Dose: 20 meq Documented by: Tiotropium [place] (Spiriva Respimat) 2 puff IH DAILY [facility] Last Admin: 12/18/19 09:22 Dose: 2 puff Documented by: - Objective Vital Signs: Vital Signs Temperature 97.7 F 12/19/19 06:00 Pulse Rate 62 12/19/19 06:00 Respiratory Rate 18 12/19/19 06:00 Blood Pressure 126/67 12/19/19 06:00 O2 Sat by Pulse Oximetry (%) 100 12/19/19 06:00 Constitutional: Yes: Calm, Obese Eyes: Yes: WNL HENT: Yes: WNL Neck: Yes: WNL Cardiovascular: Yes: Regular Rate and Rhythm, S1, S2 Respiratory: Yes: Diminished Gastrointestinal: Yes: Normal Bowel Sounds, Abdomen, Obese Extremities: Yes: WNL Edema: Yes Labs: CBC, BMP Laboratory Tests 12/18/19 13:14 ABG pH 7.417 ABG pCO2 45.70 H ABG pO2 139.2 H ABG HCO3 28.8 H ABG O2 Sat (Measured) 98.8 H Oxygen Flow Rate 1.5 Problem List - Problems (1) Breast pain Code(s): N64.4 - MASTODYNIA (2) CHF exacerbation Code(s): I50.9 - HEART FAILURE, UNSPECIFIED (3) GERD (gastroesophageal reflux disease) Code(s): K21.9 - GASTRO-ESOPHAGEAL REFLUX DISEASE WITHOUT ESOPHAGITIS (4) HTN (hypertension) Code(s): I10 - ESSENTIAL (PRIMARY) HYPERTENSION (5) Severe obesity (BMI >= 40) Code(s): E66.01 - MORBID (SEVERE) OBESITY DUE TO EXCESS CALORIES (6) SOB (shortness of breath) Code(s): R06.02 - SHORTNESS OF BREATH (7) Asthma exacerbation Code(s): J45.901 - UNSPECIFIED ASTHMA WITH (ACUTE) EXACERBATION Assessment/Plan Assessment/Plan Acute on Chronic Diastolic Heart Failure clinically improved Morbid Obesity GRETCHEN/OHS Asthma HTN DM - Lasix - monitor urine output, creatinine - O2 to keep SpO2 >90% - inhaled bronchodilators as needed - anticoagulation - NIPPV support increased as patient reports she thinks she in on 14 or 16 cm H2O at home DR LUGO
[2019-12-19] MEDS: ALBUTEROL SO4 HFA INHALER IH PRN (11:30)
[2019-12-19] MEDS: POTASSIUM CHLORIDE TABS 20 MEQ TABLET.ER (FP) PO SCH (11:44)
[2019-12-19] MEDS: MULTIVITAMINS (DAILY MVI) TABLET (FP) PO SCH (11:44)
[2019-12-19] MEDS: PANTOPRAZOLE 40 MG TABLET PO SCH (11:45)
[2019-12-19] MEDS: LACTOBACILLUS ACIDOPHILUS 1 TABLET PO SCH (11:45)
[2019-12-19] MEDS: amLODIPine BESYLATE 5 MG TABLET (FP) PO SCH (11:47)
[2019-12-19] MEDS: ENOXAPARIN NA (PORCINE) 40 MG/0.4 ML DISP.SYRIN SQ SCH (11:47)
[2019-12-19] MEDS: LISINOPRIL 10 MG TABLET (FP) PO SCH (11:49)
[2019-12-19] MEDS: BUDESONIDE/FORMETEROL FUMARATE 160/4.5 mcg INHALER IH SCH (11:49)
[2019-12-19] MEDS: TIOTROPIUM BROMIDE 2.5 MCG (SPIRIVA) RESPIMAT INHALER IH SCH (11:50)
[2019-12-19] MEDS: FUROSEMIDE 40 MG/4 ML INJECTABLE VIAL IVPUSH SCH (12:23)
--- NOTE | 2019-12-19 12:36 | DS ---
Physical Examination Vital Signs: Vital Signs Temperature 97.7 F 12/19/19 06:00 Pulse Rate 57 L 12/19/19 11:00 Respiratory Rate 22 H 12/19/19 11:00 Blood Pressure 153/68 12/19/19 11:00 O2 Sat by Pulse Oximetry (%) 96 12/19/19 11:00 Labs: CBC, BMP 12/15/19 10:26 12/18/19 07:45 Discharge Summary Problems reviewed: Yes Reason For Visit: CONGESTIVE HEART FAILURE,ABSCESS Current Active Problems Asthma exacerbation (Acute) Breast abscess (Acute) Breast pain (Acute) CHF exacerbation (Acute) Cellulitis (Acute) Chronic cough (Acute) Diabetes mellitus (Acute) Elevated d-dimer (Acute) Encounter for screening laboratory testing for COVID-19 virus (Acute) GERD (gastroesophageal reflux disease) (Acute) HTN (hypertension) (Acute) Leg pain (Acute) Severe obesity (BMI >= 40) (Acute) Hospital Course: - Problems (1) Breast abscess Assessment/Plan: -Left breast U/S reviewed -On IV abx-would help with left breast areolar cellulitis as well--ID follow up -Surgical consult appreciated Code(s): N61.1 - ABSCESS OF THE BREAST AND NIPPLE (2) CHF exacerbation Assessment/Plan: -IV furosemide--to po -CXR possible congestion -Unable to do CT chest due to pt's BMI--follow up cxr -Seen by Cardiology -Clinically improved Problems reviewed: Yes Code(s): I50.9 - HEART FAILURE, UNSPECIFIED (3) Diabetes mellitus Assessment/Plan: -A1c at 10.5 -BGM AC HS -ISS -Diabetic low sodium diet -Start Metformin 850 mg po bid Problems reviewed: Yes Code(s): E11.9 - TYPE 2 DIABETES MELLITUS WITHOUT COMPLICATIONS (4) Severe obesity (BMI >= 40) Assessment/Plan: -Low calorie diet -Bariatric consult follows at [facility] Problems reviewed: Yes Code(s): E66.01 - MORBID (SEVERE) OBESITY DUE TO EXCESS CALORIES (5) SOB (shortness of breath) Assessment/Plan: -Pulmonary on board -CXR reviewed -COVID 19-PCR negative -Unable to do CT chest 2/2 to BMI -Bronchodilators -O2 tx to keep SpO2>90% -BIPAP PRN -D/C eliquis -Will start DVT ppx -ID on board -ABG as per pulmonary Problems reviewed: Yes Code(s): R06.02 - SHORTNESS OF BREATH ID follow up and cxr--possible dc today Condition: Stable - Instructions Disposition: INTERMEDIATE FACILITY - Home Medications Comprehensive Discharge Medication List: Ambulatory Orders Acetaminophen [Tylenol] 650 mg PO QID PRN 12/06/19 Albuterol 0.083% Nebulizer [place] [Ventolin 0.083% Nebulizer Soln -] 1 neb NEB Q6H PRN 12/06/19 Apixaban [Eliquis -] 2.5 mg PO BID 12/06/19 Baclofen 10 mg PO TID 12/06/19 Benzonatate 200 mg PO TID 12/06/19 Budesonide/Formeterol Fumarate [SYMBICORT 160/4.5mcg -] 1 inh PO BID 12/06/19 Chrm/Vineg/Bit-Orang Peel/Gr T [Apple Cider Vinegar Plus Tb] 1 each PO BID 12/06/19 Clindamycin [Cleocin -] 450 mg PO Q8H #63 capsule 12/06/19 Garlic 1 each PO BID 12/06/19 Insulin (LOG) Aspart [NovoLOG -] 15 units SQ TID 12/06/19 Insulin Degludec [Tresiba Flextouch U-100] 40 unit SQ DAILY 12/06/19 Lactobacillus Acidophilus [Digestive Probiotic] 1 each PO BID 12/06/19 Lidocaine 5% Patch [Lidoderm -] 1 patch TP DAILY 12/06/19 Lisinopril 10 mg PO DAILY 12/06/19 Multivitamin [Multiple Vitamins] 1 each PO DAILY 12/06/19 Tiotropium [place] [Spiriva Respimat] 4 gm IH DAILY 12/06/19 Amlodipine Besylate [Norvasc -] 5 mg PO DAILY tablet 12/19/19 Insulin Sliding Scale [Novolog Vial Sliding Scale -] 1 vial SQ ACHS units 12/19/19 Lactobacillus Acidophilus [Bacid -] 1 tab PO BID tab 12/19/19 Pantoprazole Sodium [Protonix -] 40 mg PO DAILY tablet.ec 12/19/19 Potassium Chloride [K-Dur -] 20 meq PO DAILY tablet.er 12/19/19 metFORMIN HCL [Glucophage -] 850 mg PO BID@0700,1630 tablet 12/19/19
[2019-12-19 14:15] LABS: BASO % 0.9 % (0-2.0); EOS % 3.2 % (0-4.5); HEMATOCRIT 34.3 % (32.4-45.2); HEMOGLOBIN 10.8 GM/dL (10.7-15.3); LYMPH % 33.6 % (8-40); MCHC 31.5 g/dl (32.0-36.0); MEAN CELL VOLUME 82.4 fl (80-96); MEAN PLT VOLUME 10.4 fl (7.5-11.1); MONO % 8.8 % (3.8-10.2); NEUT % 53.5 % (42.8-82.8); PLATELET COUNT 202 K/MM3 (134-434); RBC 4.16 M/mm3 (3.60-5.2); RDW 16.2 % (11.6-15.6); WHITE BLOOD COUNT 6.1 K/mm3 (4.0-10.0)
[2019-12-19 18:28] VITALS: BP 152/72; PULSE 64; TEMP 97
[2019-12-20] MEDS ORDERED: FUROSEMIDE 40 MG TABLET (FP) PO SCH (10:00)
== END 2019-12-19 19:41 | DRG 292 ==
LOC: JER 22:36 → JERBED 12-14 04:51 → J5S 12-14 13:30
PROVIDERS: ADMIT Internal Medicine; ATTEND Family Medicine
DX: I11.0 Hypertensive heart disease with heart failure (principal); J45.901 Unspecified asthma with (acute) exacerbation; Z68.45 Body mass index [BMI] 70 or greater, adult; L03.90 Cellulitis, unspecified; I50.33 Acute on chronic diastolic (congestive) heart failure; N61.0 Mastitis without abscess; R79.89 Other specified abnormal findings of blood chemistry; E11.9 Type 2 diabetes mellitus without complications; G47.33 Obstructive sleep apnea (adult) (pediatric); E66.01 Morbid (severe) obesity due to excess calories; K21.9 Gastro-esophageal reflux disease without esophagitis; N61.1 Abscess of the breast and nipple; N64.4 Mastodynia; Z11.59 Encounter for screening for other viral diseases; Z88.0 Allergy status to penicillin
CPT/HCPCS: 36415; 36600; 71045-TC-FY; 76641-TC-LT; 80048; 80053; 82803; 82962; 83036; 83880; 84484; 85025; 85027; 85379; 87040; 87086; 93005; 93010; 93970-TC; 94660; 97116-GP; 97161-GP; 99285-25; G0480; J0475; U0003

== ENCOUNTER 2019-12-20 02:46 | Emergency (ER) | payer OTHER ==
--- NOTE | 2019-12-20 03:01 | PDOC ---
Attending Attestation - Resident Resident Name: Gordon Menchaca - ED Attending Attestation I have performed the following: I have examined & evaluated the patient, The case was reviewed & discussed with the resident, I agree w/resident's findings & plan - HPI HPI: 12/20/19 03:19 Pt comes with chest pain; 4 separate episodes after she got home from the hospital yesterday Pt got nervous and came to the ER. - Physicial Exam PE: 12/20/19 04:43 Normal exam Pt is obese afebrile VSS O2sat 100% on RA normal heart and lungs and abd and flank No peripheral edema Symmetric ext bilat. - Medical Decision Making 12/20/19 04:44 Trop is normal EKG NSR. Pt can return to her NH Discharge - Discharge Information Problems reviewed: Yes Clinical Impression/Diagnosis: Atypical chest pain - Follow up/Referral Referrals: Kathy Langford MD [Primary Care Provider] - - Patient Discharge Instructions - Post Discharge Activity
[2019-12-20] MEDS ORDERED: ACETAMINOPHEN 325 MG TABLET (FP) PO ONE (03:03)
[2019-12-20 03:07] VITALS: BMI 61.9
[2019-12-20] MEDS ORDERED: ACETAMINOPHEN 325 MG TABLET (FP) ONE (03:13)
[2019-12-20] MEDS ORDERED: IBUPROFEN 600 MG TABLET (FP) PO ONE ×2 (03:19→03:20)
--- NOTE | 2019-12-20 03:34 | PDOC ---
History of Present Illness - General Chief Complaint: Chest Pain Stated Complaint: CHEST PAIN Time Seen by Provider: 12/20/19 02:48 - History of Present Illness Initial Comments: 12/20/19 03:47 49 yo female with pmh asthma, DM, CHF, GERD, morbid obesity presents to ED for left sided chest pain that started last night. Pt explains she was lifting her arms to put on shirt and since then been having on and off chest pain since 10 :30 pm. Pt explains sharp pain radiating to left side. Pt denies any nausea, diaphoresis, worsening with exertion, calf tenderness, or worsening SOB. Pt was recently discharged yesterday AM for cellulitis in left breast and right leg to [facility] due to morbid obesity. Pt at facility was given tylenol but pain did not subside so they decided to bring her to ER. PMH: asthma, DM, CHF GERD, morbid obesity PSH: Thyroidectomy allergy: penicillin Social: denies smoking, drugs and alcohol. Lives at [facility] PCP: Dr. Langford 12/20/19 04:52 Past History - Medical History Allergies/Adverse Reactions: Allergies Allergy/AdvReac Type Severity Reaction Status Date / Time Penicillins Allergy Verified 12/20/19 03:03 pollen extracts Allergy Verified 12/20/19 03:03 bees Allergy Uncoded 12/20/19 03:03 kiwi Allergy Uncoded 12/20/19 03:03 Home Medications: Ambulatory Orders Acetaminophen [Tylenol] 650 mg PO QID PRN 12/06/19 Albuterol 0.083% Nebulizer [place] [Ventolin 0.083% Nebulizer Soln -] 1 neb NEB Q6H PRN 12/06/19 Apixaban [Eliquis -] 2.5 mg PO BID 12/06/19 Baclofen 10 mg PO TID 12/06/19 Benzonatate 200 mg PO TID 12/06/19 Budesonide/Formeterol Fumarate [SYMBICORT 160/4.5mcg -] 1 inh PO BID 12/06/19 Chrm/Vineg/Bit-Orang Peel/Gr T [Apple Cider Vinegar Plus Tb] 1 each PO BID 12/06/19 Clindamycin [Cleocin -] 450 mg PO Q8H #63 capsule 12/06/19 Garlic 1 each PO BID 12/06/19 Insulin (LOG) Aspart [NovoLOG -] 15 units SQ TID 12/06/19 Insulin Degludec [Tresiba Flextouch U-100] 40 unit SQ DAILY 12/06/19 Lactobacillus Acidophilus [Digestive Probiotic] 1 each PO BID 12/06/19 Lidocaine 5% Patch [Lidoderm -] 1 patch TP DAILY 12/06/19 Lisinopril 10 mg PO DAILY 12/06/19 Multivitamin [Multiple Vitamins] 1 each PO DAILY 12/06/19 Tiotropium [place] [Spiriva Respimat] 4 gm IH DAILY 12/06/19 Amlodipine Besylate [Norvasc -] 5 mg PO DAILY tablet 12/19/19 Insulin Sliding Scale [Novolog Vial Sliding Scale -] 1 vial SQ ACHS units 12/19/19 Lactobacillus Acidophilus [Bacid -] 1 tab PO BID tab 12/19/19 Pantoprazole Sodium [Protonix -] 40 mg PO DAILY tablet.ec 12/19/19 Potassium Chloride [K-Dur -] 20 meq PO DAILY tablet.er 12/19/19 metFORMIN HCL [Glucophage -] 850 mg PO BID@0700,1630 tablet 12/19/19 Asthma: Yes COPD: No CHF: Yes Diabetes: Yes GI Disorders: Yes (GERD) HTN: Yes - Reproductive History Is Patient Now?: No - Psycho-Social/Smoking History Smoking History: Never smoked Have you smoked in the past 12 months: No Information on smoking cessation initiated: No - Substance Abuse Hx (Audit-C & DAST Scrn) How often the patient has a drink containing alcohol: Never Score: In Men: 4 or > Positive; In Women: 3 or > Positive: 0 Screen Result (Pos requires Nsg. Audit-10AR): Negative In the last yr the pt used illegal drug/Rx for NonMed reason: No Score: Yes response is considered Positive: 0 Screen Result (Positive result requires Nsg. DAST-10): Negative Review of Systems - Review of Systems Comments:: 12/20/19 03:52 GENERAL/CONSTITUTIONAL: No fever or chills. No weakness. HEAD, EYES, EARS, NOSE AND THROAT: No change in vision. No ear pain or discharge. No sore throat. CARDIOVASCULAR: Chest pain. No worsening SOB (SOB chronic since admission) RESPIRATORY: No cough, wheezing, or hemoptysis. GASTROINTESTINAL: No nausea, vomiting, diarrhea or constipation. GENITOURINARY: No dysuria, frequency, or change in urination. MUSCULOSKELETAL: No joint or muscle swelling or pain. No neck or back pain. SKIN: cellulitis of left breast and right ankle NEUROLOGIC: No headache, vertigo, loss of consciousness, or change in strengt h/sensation. ENDOCRINE: No increased thirst. No abnormal weight change ALLERGIC/IMMUNOLOGIC: No hives or skin allergy. *Physical Exam - Vital Signs Last Vital Signs Temp Pulse Resp BP Pulse Ox 97.6 F 76 20 153/76 100 12/20/19 03:03 12/20/19 03:03 12/20/19 03:03 12/20/19 03:03 12/20/19 03:03 - Physical Exam 12/20/19 03:53 GENERAL: Awake, alert, and fully oriented, in no acute distress HEAD: No signs of trauma, normocephalic, atraumatic EYES: PERRLA, EOMI, sclera anicteric, conjunctiva clear ENT: Auricles normal inspection, hearing grossly normal, nares patent, oropharynx clear without exudates. Moist mucosa NECK: Normal ROM, supple, no lymphadenopathy, JVD, or masses LUNGS: No distress, speaks full sentences, clear to auscultation bilaterally HEART: Regular rate and rhythm, normal S1 and S2, no murmurs, rubs or gallops, peripheral pulses normal and equal bilaterally. ABDOMEN: Soft, obtunded, nontender, normoactive bowel sounds. No guarding, no rebound. No masses EXTREMITIES : Bilateral edema of lower ext. NEUROLOGICAL: Cranial nerves II through XII grossly intact. Normal speech SKIN: Warm, Dry, normal turgor, no rashes (no erythema noted on chest wall or left leg where prior cellulitis) or lesions noted Heart Score/ECG Review - ECG Impressions Comment:: 12/20/19 04:33 Normal sinus rhythm at 65 bpm Normal axis Normal CA, QRS, QT interval no st changes or signs of ischemia. Medical Decision Making - Medical Decision Making 12/20/19 03:54 49 yo female with pmh stated above presents to ED for chest pain that started 1030. Will get EKG and one cardiac biomarker. IF normal will dc back to [facility]. 12/20/19 04:44 Pt troponin and ekg came back normal will DC home. Pt agreeable to decision. Discharge - Discharge Information Problems reviewed: Yes Clinical Impression/Diagnosis: Atypical chest pain Condition: Stable Disposition: HOME - Follow up/Referral Referrals: Kathy Langford MD [Primary Care Provider] - - Patient Discharge Instructions Patient Printed Discharge Instructions: DI for Atypical Chest Pain Additional Instructions: You came to ED for chest pain. This is most likely from a muscular skeletal strain. At the ED we did an EKG and troponin level which both showed no acute abnormalities. Your work up is not complete without following up with your PCP within 7 days. For the pain please continue taking Tylenol 325mg-1000mg every 6 hours but no more than 4000mg If you have any of the following symptoms please return: - worsening chest pain - worsening shortness of breath - any emerging symptoms IF you have a medical emergency please call for help right away. - Post Discharge Activity
[2019-12-20 06:36] VITALS: BP 120/76; PULSE 64; TEMP 98.2
--- NOTE | 2019-12-20 10:47 | EKG ---
Test Reason : Blood Pressure : / mmHG Vent. Rate : 065 BPM Atrial Rate : 065 BPM P-R Int : 134 ms QRS Dur : 072 ms QT Int : 406 ms P-R-T Axes : 029 -02 026 degrees QTc Int : 422 ms NORMAL SINUS RHYTHM LOW VOLTAGE QRS BORDERLINE ECG WHEN COMPARED WITH ECG OF 17-DEC-2019 06:31, NO SIGNIFICANT CHANGE WAS FOUND Confirmed by Beth Dillard ([id number]) on 12/20/2019 10:47:14 AM Referred By: Confirmed By:Beth Dillard
== END 2019-12-20 06:57 | disposition home or self-care (01) ==
LOC: JER 02:46
DX: R07.89 Other chest pain (principal)
CPT/HCPCS: 36415; 84484; 93005; 93010; 99284-25

== ENCOUNTER 2019-12-28 20:48 | Observation (INO) | payer OTHER ==
[2019-12-28 20:54] VITALS: BMI 54.1
--- NOTE | 2019-12-28 21:10 | PDOC ---
History of Present Illness - General Chief Complaint: Chest Pain Stated Complaint: CHEST PAIN ANXIETY Time Seen by Provider: 12/28/19 21:08 History Source: Patient Exam Limitations: No Limitations - History of Present Illness Initial Comments: 12/28/19 21:09 49 yo female with pmh asthma, DM, CHF, GERD, morbid obesity, obstructive sleep apnea, L breast abscess, on eliquis presenting from home w nasal congestion, nonproductive cough, chest soreness, SOB since last night. Not relieved w albuterol, nebulizer, symbicort, tylenol. Evaluated several times in ED for chest pain, negative workup. Also admitted on for chest pain, SOB attributed to CHF exacerbation. Denies fever, n/v. Past History - Medical History Allergies/Adverse Reactions: Allergies Allergy/AdvReac Type Severity Reaction Status Date / Time Penicillins Allergy Verified 12/28/19 20:54 pollen extracts Allergy Verified 12/28/19 20:54 bees Allergy Uncoded 12/28/19 20:54 kiwi Allergy Uncoded 12/28/19 20:54 Home Medications: Ambulatory Orders Acetaminophen [Tylenol] 650 mg PO QID PRN 12/06/19 Albuterol 0.083% Nebulizer Machelle [Ventolin 0.083% Nebulizer Soln -] 1 neb NEB Q6H PRN 12/06/19 Apixaban [Eliquis -] 2.5 mg PO BID 12/06/19 Baclofen 10 mg PO TID 12/06/19 Benzonatate 200 mg PO TID 12/06/19 Budesonide/Formeterol Fumarate [SYMBICORT 160/4.5mcg -] 1 inh PO BID 12/06/19 Chrm/Vineg/Bit-Orang Peel/Gr T [Apple Cider Vinegar Plus Tb] 1 each PO BID 12/06/19 Clindamycin [Cleocin -] 450 mg PO Q8H #63 capsule 12/06/19 Garlic 1 each PO BID 12/06/19 Insulin (LOG) Aspart [NovoLOG -] 15 units SQ TID 12/06/19 Insulin Degludec [Tresiba Flextouch U-100] 40 unit SQ DAILY 12/06/19 Lactobacillus Acidophilus [Digestive Probiotic] 1 each PO BID 12/06/19 Lidocaine 5% Patch [Lidoderm -] 1 patch TP DAILY 12/06/19 Lisinopril 10 mg PO DAILY 12/06/19 Multivitamin [Multiple Vitamins] 1 each PO DAILY 12/06/19 Tiotropium [place] [Spiriva Respimat] 4 gm IH DAILY 12/06/19 Amlodipine Besylate [Norvasc -] 5 mg PO DAILY tablet 12/19/19 Insulin Sliding Scale [Novolog Vial Sliding Scale -] 1 vial SQ ACHS units 12/19/19 Lactobacillus Acidophilus [Bacid -] 1 tab PO BID tab 12/19/19 Pantoprazole Sodium [Protonix -] 40 mg PO DAILY tablet.ec 12/19/19 Potassium Chloride [K-Dur -] 20 meq PO DAILY tablet.er 12/19/19 metFORMIN HCL [Glucophage -] 850 mg PO BID@0700,1630 tablet 12/19/19 Asthma: Yes COPD: No CHF: Yes Diabetes: Yes GI Disorders: Yes (GERD) HTN: Yes - Reproductive History Is Patient Now?: No - Psycho-Social/Smoking History Smoking History: Never smoked Have you smoked in the past 12 months: No - Substance Abuse Hx (Audit-C & DAST Scrn) How often the patient has a drink containing alcohol: Never Score: In Men: 4 or > Positive; In Women: 3 or > Positive: 0 Screen Result (Pos requires Nsg. Audit-10AR): Negative In the last yr the pt used illegal drug/Rx for NonMed reason: No Score: Yes response is considered Positive: 0 Screen Result (Positive result requires Nsg. DAST-10): Negative Review of Systems - Review of Systems Constitutional: No: Chills, Fever HEENTM: Yes: Nose Congestion. No: Eye Pain Respiratory: Yes: Cough, Shortness of Breath Cardiac (ROS): No: Chest Pain, Palpitations ABD/GI: No: Constipated, Diarrhea, Nausea, Vomiting : No: Burning, Dysuria Musculoskeletal: No: Back Pain, Joint Pain Integumentary: No: Bruising, Flushing Neurological: No: Headache, Seizure Psychiatric: No: Anxiety, Depression Endocrine: No: Intolerance to Cold, Intolerance to Heat Hematologic/Lymphatic: No: Anemia, Blood Clots *Physical Exam - Vital Signs Last Vital Signs Temp Pulse Resp BP Pulse Ox 98.3 F 76 18 177/76 H 100 12/28/19 20:52 08/16/20 20:52 12/28/19 20:52 12/28/19 20:52 12/28/19 20:52 - Physical Exam General Appearance: Yes: Nourished, Appropriately Dressed, Moderate Distress, Obese HEENT: positive: EOMI, BOB, Normal Voice, Nasal Congestion, Hearing Grossly Normal. negative: Scleral Icterus (R), Scleral Icterus (L) Respiratory/Chest: positive: Wheezing (monalisa ). negative: Chest Tender, Crackles, Rales, Rhonchi, Stridor Cardiovascular: positive: Regular Rhythm, Regular Rate, S1, S2. negative: Murmur Gastrointestinal/Abdominal: positive: Normal Bowel Sounds, Flat, Soft. negative: Tender, Organomegaly Extremity: positive: Pedal Edema (2+ monalisa pitting ) Integumentary: positive: Normal Color, Warm Neurologic: positive: Fully Oriented, Alert, Normal Mood/Affect, Normal Response, Responsive Heart Score/ECG Review - History History: Slightly suspicious - Electrocardiogram EKG: Normal ED Treatment Course - LABORATORY CBC & Chemistry Diagram: 12/28/19 22:00 12/28/19 22:00 - ADDITIONAL ORDERS Additional order review: Laboratory Results 12/28/19 12/28/19 22:00 22:00 PT with INR 12.50 INR 1.06 Sodium 141 Potassium 4.1 Chloride 104 Carbon Dioxide 32 Anion Gap 5 L BUN 15.4 Creatinine 0.8 Est GFR (CKD-EPI)AfAm 100.33 Est GFR (CKD-EPI)NonAf 86.57 Random Glucose 119 H Calcium 9.3 Total Bilirubin 0.5 AST 16 ALT 23 Alkaline Phosphatase 75 Creatine Kinase 153 Creatine Kinase Index 0.8 CK-MB (CK-2) 1.3 Troponin I < 0.02 B-Natriuretic Peptide 175.4 H Total Protein 7.3 Albumin 3.5 12/28/19 22:00 RBC 4.14 MCV 82.9 MCHC 32.3 RDW 15.7 H MPV 10.3 Neutrophils % 59.2 Lymphocytes % 30.2 Monocytes % 6.7 Eosinophils % 2.4 Basophils % 1.5 - RADIOLOGY Radiology Studies Ordered: Category Date Time Status CHEST X-RAY PORTABLE* [RAD] Stat Radiology 12/28/19 21:40 Taken - Medications Given in the ED: ED Medications Discontinued Medications Generic Name Dose Route Start Last Admin Trade Name Freq PRN Reason Stop Dose Admin Acetaminophen 975 mg 12/28/19 21:40 12/28/19 22:33 Tylenol - PO 12/28/19 21:41 975 mg ONCE ONE Administration Albuterol/Ipratropium 1 amp 12/28/19 21:40 12/28/19 22:33 Duoneb - NEB 12/28/19 21:41 1 amp ONCE ONE Administration Guaifenesin 10 ml 12/28/19 21:42 12/28/19 22:33 Robitussin - PO 12/28/19 21:43 10 ml ONCE ONE Administration Methylprednisolone Sodium Succinate 125 mg 12/28/19 21:47 12/28/19 22:33 Solu-Medrol - IVPB 12/28/19 21:48 125 mg ONCE ONE Administration Medical Decision Making - Medical Decision Making 12/28/19 22:30 EKG - sinus rhythm w PVCs, low voltage, HR 68, QTc 427, no ST changes CXR - monalisa fluffy infiltrates BNP 175 --- 49 yo female with pmh asthma, DM, CHF, GERD, morbid obesity, obstructive sleep apnea, L breast abscess, on eliquis presenting from home w nasal congestion, nonproductive cough, chest soreness, SOB since last night. Likely d/t asthma exacerbation (wheezing), CHF exacerbation (leg swelling, infiltrates XR). Low concern for PNA (no consolidation) vs ACS (neg trop) Given tylenol, guaifenesin, duonebx2, solumedrol, 20 lasix Admit tele hospitalist for asthma exacerbation, CHF exacerbation, chest pain PCP Anastasiya Discharge - Discharge Information Problems reviewed: Yes Clinical Impression/Diagnosis: Atypical chest pain Asthma exacerbation Qualifiers: Asthma severity: moderate Asthma persistence: persistent Qualified Code(s): J45.41 - Moderate persistent asthma with (acute) exacerbation Acute exacerbation of CHF (congestive heart failure) Qualifiers: Heart failure type: unspecified Qualified Code(s): I50.9 - Heart failure, unspecified Condition: Improved - Follow up/Referral - Patient Discharge Instructions - Post Discharge Activity
--- NOTE | 2019-12-28 21:31 | PDOC ---
Attending Attestation - Resident Resident Name: Bladimir Brink - ED Attending Attestation I have performed the following: I have examined & evaluated the patient, The case was reviewed & discussed with the resident, I agree w/resident's findings & plan - HPI HPI: 12/28/19 23:18 see resident hpi - Physicial Exam PE: 12/28/19 23:18 see resident exam - Medical Decision Making 12/28/19 23:19 49-year-old morbidly obese female with intermittent chest pain shortness of breath and cough Patient seen recently for similar, DC'd home, symptoms have now returned Due to patient's morbid obesity and persistent symptoms she will be admitted for serial troponins and further evaluation Of note patient had a d-dimer elevation in the past, she is currently on anticoagulation Discharge - Discharge Information Problems reviewed: Yes Clinical Impression/Diagnosis: Atypical chest pain, SOB (shortness of breath) Asthma exacerbation Qualifiers: Asthma severity: moderate Asthma persistence: persistent Qualified Code(s): J45.41 - Moderate persistent asthma with (acute) exacerbation Condition: Improved - Follow up/Referral - Patient Discharge Instructions - Post Discharge Activity
[2019-12-28] MEDS ORDERED: ACETAMINOPHEN 500 MG TABLET (FP) PO ONE (21:40)
[2019-12-28] MEDS ORDERED: ALBUTEROL SO4 2.5/IPRATROPIUM 0.5 INH SOL 3 ML VIAL.NEB. NEB ONE ×2 (21:40→22:10)
[2019-12-28] MEDS ORDERED: guaiFENesin 200 MG/10 ML 10 ML UNIT-DOSE CUPS PO ONE (21:42)
[2019-12-28] MEDS ORDERED: methylPREDNISolone NA SUCC 125 MG/2 ML VIAL IVPB ONE (21:47)
[2019-12-28] MEDS ORDERED: guaiFENesin 200 MG/10 ML 10 ML UNIT-DOSE CUPS ONE (22:09)
[2019-12-28] MEDS ORDERED: ACETAMINOPHEN 325 MG TABLET (FP) ONE (22:10)
[2019-12-28] MEDS ORDERED: methylPREDNISolone NA SUCC 125 MG/2 ML VIAL ONE (22:10)
[2019-12-28 22:18] LABS: BASO % 1.5 % (0-2.0); EOS % 2.4 % (0-4.5); HEMATOCRIT 34.3 % (32.4-45.2); HEMOGLOBIN 11.1 GM/dL (10.7-15.3); LYMPH % 30.2 % (8-40); MCH 26.7 pg (25.7-33.7); MCHC 32.3 g/dl (32.0-36.0); MEAN CELL VOLUME 82.9 fl (80-96); MEAN PLT VOLUME 10.3 fl (7.5-11.1); MONO % 6.7 % (3.8-10.2); NEUT % 59.2 % (42.8-82.8); PLATELET COUNT 219 K/MM3 (134-434); RBC 4.14 M/mm3 (3.60-5.2); RDW 15.7 % (11.6-15.6); WHITE BLOOD COUNT 8.3 K/mm3 (4.0-10.0)
[2019-12-28 22:25] LABS: INR 1.06 (0.83-1.09); PROTHROMBIN TIME (PATIENT) 12.5 SEC (9.7-13.0)
[2019-12-28 22:58] LABS: ALBUMIN 3.5 g/dl (3.4-5.0); ALK PHOS 75 U/L (45-117); ANION GAP 5 MMOL/L (8-16); BILIRUBIN,TOTAL 0.5 mg/dL (0.2-1); BLOOD UREA NITROGEN 15.4 mg/dL (7-18); CALCIUM 9.3 mg/dL (8.5-10.1); CHLORIDE 104 mmol/L (98-107); CO2 32 mmol/L (21-32); CREATININE 0.8 mg/dL (0.55-1.3); GLUCOSE,RANDOM 119 mg/dL (74-106); POTASSIUM 4.1 mmol/L (3.5-5.1); SGOT/AST 16 U/L (15-37); SGPT/ALT 23 U/L (13-61); SODIUM 141 mmol/L (136-145); TOT PROT 7.3 g/dl (6.4-8.2)
[2019-12-29] MEDS ORDERED: FUROSEMIDE 40 MG/4 ML INJECTABLE VIAL IVPUSH ONE (00:11)
[2019-12-29] MEDS ORDERED: ALBUTEROL SO4 2.5/IPRATROPIUM 0.5 INH SOL 3 ML VIAL.NEB. NEB ONE ×4 (00:11→06:25)
[2019-12-29 00:36] LABS: N-TERMINAL BNP 175.4 pg/ml (5-125)
--- NOTE | 2019-12-29 00:50 | HP ---
Admitting History and Physical - Primary Care Physician PCP: Kathy Langford - Admission Chief Complaint: SOB, Chest Pain, Wheezing History of Present Illness: This is a 49 y/o female from [facility] with a PMHx Asthma, DM, Diastolic CHF, GRETCHEN, GERD, Pneumonia, Severe Obesity, on Eliquis ppx, Celluitis, recent admission for 12/13-12/19 CHF, Abscess. Who presents to the ED for nasal congestion, nonproductive cough, chest soreness, SOB since last night. Not relieved w albuterol nebulizer, symbicort, tylenol. Evaluated several times in ED for chest pain, negative workup. Patient denies fever, chills, dizziness, BATISTA, palpitations, AP, N/V/D, constipation, dysuria. History Source: Patient Limitations to Obtaining History: No Limitations - Past Medical History Cardiovascular: Yes: CHF, HTN Pulmonary: Yes: Asthma, Pneumonia, Sleep Apnea Gastrointestinal: Yes: GERD ...LMP: 12/28/19 ...: No - Smoking History Smoking history: Never smoked Have you smoked in the past 12 months: No - Alcohol/Substance Use Hx Alcohol Use: No History of Substance Use: reports: None - Social History Usual Living Arrangement: Yes: Long-Term ADL: Support Services History of Recent Travel: No Home Medications - Allergies Allergies/Adverse Reactions: Allergies Allergy/AdvReac Type Severity Reaction Status Date / Time Penicillins Allergy Verified 12/28/19 20:54 pollen extracts Allergy Verified 12/28/19 20:54 bees Allergy Uncoded 12/28/19 20:54 kiwi Allergy Uncoded 12/28/19 20:54 - Home Medications Home Medications: Ambulatory Orders Acetaminophen [Tylenol] 650 mg PO QID PRN 12/06/19 Albuterol 0.083% Nebulizer Machelle [Ventolin 0.083% Nebulizer Soln -] 1 neb NEB Q6H PRN 12/06/19 Apixaban [Eliquis -] 2.5 mg PO BID 12/06/19 Baclofen 10 mg PO TID 12/06/19 Benzonatate 200 mg PO TID 12/06/19 Budesonide/Formeterol Fumarate [SYMBICORT 160/4.5mcg -] 1 inh PO BID 12/06/19 Chrm/Vineg/Bit-Orang Peel/Gr T [Apple Cider Vinegar Plus Tb] 1 each PO BID 12/06/19 Clindamycin [Cleocin -] 450 mg PO Q8H #63 capsule 12/06/19 Garlic 1 each PO BID 12/06/19 Insulin (LOG) Aspart [NovoLOG -] 15 units SQ TID 12/06/19 Insulin Degludec [Tresiba Flextouch U-100] 40 unit SQ DAILY 12/06/19 Lactobacillus Acidophilus [Digestive Probiotic] 1 each PO BID 12/06/19 Lidocaine 5% Patch [Lidoderm -] 1 patch TP DAILY 12/06/19 Lisinopril 10 mg PO DAILY 12/06/19 Multivitamin [Multiple Vitamins] 1 each PO DAILY 12/06/19 Tiotropium [place] [Spiriva Respimat] 4 gm IH DAILY 12/06/19 Amlodipine Besylate [Norvasc -] 5 mg PO DAILY tablet 12/19/19 Insulin Sliding Scale [Novolog Vial Sliding Scale -] 1 vial SQ ACHS units 12/19/19 Lactobacillus Acidophilus [Bacid -] 1 tab PO BID tab 12/19/19 Pantoprazole Sodium [Protonix -] 40 mg PO DAILY tablet.ec 12/19/19 Potassium Chloride [K-Dur -] 20 meq PO DAILY tablet.er 12/19/19 metFORMIN HCL [Glucophage -] 850 mg PO BID@0700,1630 tablet 12/19/19 Family Medical History Family History: Unable to Obtain Review of Systems - Review of Systems Constitutional: reports: No Symptoms Eyes: reports: No Symptoms HENT: reports: Nasal Congestion Neck: reports: No Symptoms Cardiovascular: reports: Chest Pain, Edema, Shortness of Breath Respiratory: reports: Cough, SOB, SOB on Exertion, Wheezing Gastrointestinal: reports: No Symptoms Genitourinary: reports: No Symptoms Breasts: reports: No Symptoms Reported Musculoskeletal: reports: No Symptoms Integumentary: reports: No Symptoms Neurological: reports: No Symptoms Endocrine: reports: No Symptoms Hematology/Lymphatic: reports: No Symptoms Psychiatric: reports: No Symptoms Pain Intensity: 4 Physical Examination Vital Signs: Vital Signs Temperature 98.3 F 12/28/19 20:52 Pulse Rate 76 12/28/19 20:52 Respiratory Rate 18 12/28/19 20:52 Blood Pressure 177/76 H 08/16/20 20:52 O2 Sat by Pulse Oximetry (%) 100 12/28/19 20:52 Constitutional: Yes: No Distress, Calm, Obese Eyes: Yes: WNL HENT: Yes: WNL Neck: Yes: WNL Cardiovascular: Yes: Regular Rate and Rhythm, S1, S2 Respiratory: Yes: Diminished, On Nasal O2, Poor Air Entry, SOB on Exertion Gastrointestinal: Yes: Normal Bowel Sounds, Soft, Abdomen, Obese ...Rectal Exam: Yes: Deferred Renal/: Yes: WNL Breast(s): Yes: WNL Musculoskeletal: Yes: WNL Extremities: Yes: WNL Edema: Yes Peripheral Pulses WNL: Yes Neurological: Yes: WNL, Alert, Oriented, Cran Nerves II-XII Intact ...Motor Strength: WNL Psychiatric: Yes: WNL, Alert, Oriented Labs: CBC, BMP 12/28/19 22:00 12/28/19 22:00 Laboratory Results - last 24 hr 12/28/19 12/28/19 12/28/19 22:00 22:00 22:00 WBC 8.3 RBC 4.14 Hgb 11.1 Hct 34.3 MCV 82.9 MCH 26.7 MCHC 32.3 RDW 15.7 H Plt Count 219 MPV 10.3 Absolute Neuts (auto) 4.9 Neutrophils % 59.2 Lymphocytes % 30.2 Monocytes % 6.7 Eosinophils % 2.4 Basophils % 1.5 Nucleated RBC % 0 PT with INR 12.50 INR 1.06 Sodium 141 Potassium 4.1 Chloride 104 Carbon Dioxide 32 Anion Gap 5 L BUN 15.4 Creatinine 0.8 Est GFR (CKD-EPI)AfAm 100.33 Est GFR (CKD-EPI)NonAf 86.57 Random Glucose 119 H Calcium 9.3 Total Bilirubin 0.5 AST 16 ALT 23 Alkaline Phosphatase 75 Creatine Kinase 153 Creatine Kinase Index 0.8 CK-MB (CK-2) 1.3 Troponin I < 0.02 B-Natriuretic Peptide 175.4 H Total Protein 7.3 Albumin 3.5 Intake & Output 12/26/19 12/27/19 12/28/19 12/29/19 23:59 23:59 23:59 23:59 Weight 142.882 kg Imaging - Results Chest X-ray: Image Reviewed EKG: Image Reviewed Problem List - Problems (1) CHF exacerbation Assessment/Plan: Chest Xray image- pulm vascular congestion Lasix given in ED will continue Cardiac monitoring Serial Enzymes Appreciate Cardiology consult BNP-pending Monitor CMP Continue home meds Code(s): I50.9 - HEART FAILURE, UNSPECIFIED Qualifiers: Heart failure type: unspecified Qualified Code(s): I50.9 - Heart failure, unspecified (2) Asthma exacerbation Assessment/Plan: Appreciate Pulmonology consult Chest Xray image- pulm vasc congestion Albuterol MDI Solumederol w/taper O2 Peak Flow Code(s): J45.901 - UNSPECIFIED ASTHMA WITH (ACUTE) EXACERBATION Qualifiers: Asthma severity: moderate Asthma persistence: persistent Qualified Cod e(s): J45.41 - Moderate persistent asthma with (acute) exacerbation (3) SOB (shortness of breath) Assessment/Plan: see above Code(s): R06.02 - SHORTNESS OF BREATH (4) GERD (gastroesophageal reflux disease) Assessment/Plan: Continue PPI Code(s): K21.9 - GASTRO-ESOPHAGEAL REFLUX DISEASE WITHOUT ESOPHAGITIS (5) HTN (hypertension) Assessment/Plan: Sub Optimal Monitor BP Continue Lisinopril Monitor renal function Code(s): I10 - ESSENTIAL (PRIMARY) HYPERTENSION (6) Severe obesity (BMI >= 40) Assessment/Plan: Counseled on weight reduction, healthy life style choices Code(s): E66.01 - MORBID (SEVERE) OBESITY DUE TO EXCESS CALORIES (7) Encounter for screening laboratory testing for COVID-19 virus 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 Plan: See Problem List FEN Fluid Restriction 1L Replete lytes prn Low Na Diet DVT ppx OOB SCDs Continue Eliquis Dispo: Requires Inpatient Care Visit type - Emergency Visit Emergency Visit: Yes ED Registration Date: 12/28/19 Care time: The patient presented to the Emergency Department on the above date and was hospitalized for further evaluation of their emergent condition. - New Patient This patient is new to me today: Yes Date on this admission: 12/29/19 - Critical Care Critical Care patient: No
[2019-12-29] MEDS ORDERED: FUROSEMIDE 40 MG/4 ML INJECTABLE VIAL ONE (01:00)
[2019-12-29] MEDS ORDERED: ALBUTEROL SO4 HFA INHALER IH PRN (02:12)
[2019-12-29] MEDS ORDERED: PANTOPRAZOLE 40 MG TABLET ONE ×2 (06:25→08:45)
[2019-12-29] MEDS ORDERED: PANTOPRAZOLE 40 MG TABLET PO SCH (07:00)
[2019-12-29] MEDS ORDERED: APIXABAN 2.5 MG TABLET ONE (08:41)
[2019-12-29] MEDS ORDERED: POTASSIUM CHLORIDE TABS 20 MEQ TABLET.ER (FP) PO ONE (08:44)
[2019-12-29] MEDS ORDERED: MULTIVITAMINS (DAILY MVI) TABLET (FP) ONE (08:44)
[2019-12-29] MEDS ORDERED: FUROSEMIDE 40 MG TABLET (FP) ONE (08:44)
[2019-12-29] MEDS ORDERED: amLODIPine BESYLATE 5 MG TABLET (FP) ONE (08:45)
[2019-12-29] MEDS ORDERED: LISINOPRIL 5 MG TABLET (FP) ONE (08:45)
[2019-12-29 08:46] LABS: BASO % 0.6 % (0-2.0); EOS % 0.1 % (0-4.5); HEMATOCRIT 35.3 % (32.4-45.2); HEMOGLOBIN 11.2 GM/dL (10.7-15.3); LYMPH % 11.7 % (8-40); MCH 26.6 pg (25.7-33.7); MCHC 31.8 g/dl (32.0-36.0); MEAN CELL VOLUME 83.5 fl (80-96); MEAN PLT VOLUME 10.5 fl (7.5-11.1); NEUT % 86.6 % (42.8-82.8); PLATELET COUNT 213 K/MM3 (134-434); RBC 4.23 M/mm3 (3.60-5.2); RDW 15.8 % (11.6-15.6); WHITE BLOOD COUNT 8.4 K/mm3 (4.0-10.0)
[2019-12-29 09:09] LABS: ALBUMIN 3.6 g/dl (3.4-5.0); ALK PHOS 79 U/L (45-117); ANION GAP 10 MMOL/L (8-16); BILIRUBIN,TOTAL 0.6 mg/dL (0.2-1); BLOOD UREA NITROGEN 18.5 mg/dL (7-18); CALCIUM 9.4 mg/dL (8.5-10.1); CHLORIDE 102 mmol/L (98-107); CO2 26 mmol/L (21-32); POTASSIUM 4.5 mmol/L (3.5-5.1); SGOT/AST 14 U/L (15-37); SGPT/ALT 25 U/L (13-61); SODIUM 139 mmol/L (136-145); TOT PROT 7.6 g/dl (6.4-8.2)
[2019-12-29] MEDS: APIXABAN 2.5 MG TABLET PO SCH ×2 (09:12→23:48)
[2019-12-29 09:13] LABS: GLUCOSE,RANDOM 409 mg/dL (74-106)
--- NOTE | 2019-12-29 09:16 | EKG ---
Test Reason : Blood Pressure : / mmHG Vent. Rate : 068 BPM Atrial Rate : 068 BPM P-R Int : 120 ms QRS Dur : 072 ms QT Int : 402 ms P-R-T Axes : 046 -01 043 degrees QTc Int : 427 ms SINUS RHYTHM WITH PREMATURE SUPRAVENTRICULAR COMPLEXES LOW VOLTAGE QRS POSSIBLE ANTEROLATERAL INFARCT , AGE UNDETERMINED ABNORMAL ECG WHEN COMPARED WITH ECG OF 20-DEC-2019 03:15, PREMATURE SUPRAVENTRICULAR COMPLEXES ARE NOW PRESENT T WAVE VARIATION Confirmed by KATHARINE BOWMNA MD ([id number]) on 12/29/2019 9:16:06 AM Referred By: Confirmed By:KATHARINE BOWMAN MD
[2019-12-29] MEDS ORDERED: INSULIN (NOVOLOG) ASPART 100 UNITS/ML 10ML VIAL SQ ONE (09:44)
--- NOTE | 2019-12-29 09:44 | PN ---
Progress Note, Physician - Current Medication List Current Medications: Active Medications Albuterol Sulfate (Ventolin Hfa Inhaler -) 2 puff IH Q4H PRN PRN Reason: SHORT OF BREATH/WHEEZING Amlodipine Besylate (Norvasc -) 5 mg PO DAILY [facility] Last Admin: 12/29/19 09:12 Dose: 5 mg Documented by: Apixaban (Eliquis -) 2.5 mg PO BID [facility] Last Admin: 12/29/19 09:12 Dose: 2.5 mg Documented by: Budesonide/Formoterol Fumarate (Symbicort 160/4.5mcg -) 1 puff IH BID [facility] Furosemide (Lasix -) 20 mg PO DAILY [facility] Lisinopril (Prinivil) 10 mg PO DAILY [facility] Last Admin: 12/29/19 09:12 Dose: 10 mg Documented by: Multivitamins/Minerals/Vitamin C (Tab-A-Vit -) 1 tab PO DAILY [facility] Last Admin: 12/29/19 09:13 Dose: 1 tab Documented by: Pantoprazole Sodium (Protonix -) 40 mg PO ACBK [facility] Last Admin: 12/29/19 06:34 Dose: Not Given Documented by: Potassium Chloride (K-Dur -) 20 meq PO DAILY [facility] Last Admin: 12/29/19 09:12 Dose: 20 meq Documented by: - Objective Vital Signs: Vital Signs Temperature 98.3 F 12/28/19 20:52 Pulse Rate 81 12/29/19 04:14 Respiratory Rate 18 12/29/19 04:14 Blood Pressure 143/73 12/29/19 04:14 O2 Sat by Pulse Oximetry (%) 100 12/29/19 04:14 Cardiovascular: Yes: S1, S2 Respiratory: Yes: Regular, CTA Bilaterally Gastrointestinal: Yes: Normal Bowel Sounds, Soft Edema: Yes Labs: CBC, BMP 12/29/19 08:20 12/29/19 08:20 INR, PTT INR 1.06 (0.83-1.09) 12/28/19 22:00 Problem List - Problems (1) CHF exacerbation Assessment/Plan: Chest Xray image- pulm vascular congestion Lasix given in ED will continue Cardiac monitoring Serial Enzymes Appreciate Cardiology consult BNP-pending Monitor CMP Continue home meds Code(s): I50.9 - HEART FAILURE, UNSPECIFIED Qualifiers: Heart failure type: unspecified Qualified Code(s): I50.9 - Heart failure, unspecified (2) Asthma Assessment/Plan: Appreciate Pulmonology consult Chest Xray image- pulm vasc congestion Albuterol MDI Solumederol w/taper O2 Peak Flow Code(s): J45.909 - UNSPECIFIED ASTHMA, UNCOMPLICATED (3) Diabetes mellitus Code(s): E11.9 - TYPE 2 DIABETES MELLITUS WITHOUT COMPLICATIONS (4) HTN (hypertension) Assessment/Plan: Sub Optimal Monitor BP Continue Lisinopril Monitor renal function Code(s): I10 - ESSENTIAL (PRIMARY) HYPERTENSION (5) Severe obesity (BMI >= 40) Code(s): E66.01 - MORBID (SEVERE) OBESITY DUE TO EXCESS CALORIES
[2019-12-29] MEDS ORDERED: LISINOPRIL 10 MG TABLET (FP) PO SCH (10:00)
[2019-12-29] MEDS ORDERED: amLODIPine BESYLATE 5 MG TABLET (FP) PO SCH (10:00)
[2019-12-29] MEDS ORDERED: POTASSIUM CHLORIDE TABS 20 MEQ TABLET.ER (FP) PO SCH (10:00)
[2019-12-29] MEDS ORDERED: BUDESONIDE/FORMETEROL FUMARATE 160/4.5 mcg INHALER IH SCH (10:00)
[2019-12-29] MEDS ORDERED: FUROSEMIDE 40 MG TABLET (FP) PO SCH (10:00)
[2019-12-29] MEDS ORDERED: MULTIVITAMINS (DAILY MVI) TABLET (FP) PO SCH (10:00)
--- NOTE | 2019-12-29 11:57 | CON.CARD ---
Consult Consult Specialty:: Cardiology Referred by:: Zack Reason for Consultation:: SOB - History of Present Illness Chief Complaint: SOB History of Present Illness: 49 y/o female NHR with a history of Asthma, NIDDM, Diastolic CHF, GRETCHEN, GERD, Pneumonia, Morbid Obesity, on Eliquis ppx, recent admission for 12/13-12/19 CHF, breast abscess. Now presents with sob, edema, orthopnea for several days with chest soreness. No pain. No palpitations dizziness or syncope. Minimally ambulatory. echo [facility] august 2018 TDS normal EF CXR TDS BNP minimally elevated. TnI negative. - History Source History Provided By: Patient, Medical Record - Past Medical History Cardio/Vascular: Yes: CHF, HTN Pulmonary: Yes: Asthma, Pneumonia, Sleep Apnea Gastrointestinal: Yes: GERD ...LMP: 12/28/19 ...: No - Alcohol/Substance Use Hx Alcohol Use: No History of Substance Use: reports: None - Smoking History Smoking history: Never smoked Have you smoked in the past 12 months: No - Social History ADL: Support Services History of Recent Travel: No Home Medications - Allergies Allergies/Adverse Reactions: Allergies Allergy/AdvReac Type Severity Reaction Status Date / Time Penicillins Allergy Verified 12/28/19 20:54 pollen extracts Allergy Verified 12/28/19 20:54 bees Allergy Uncoded 12/28/19 20:54 kiwi Allergy Uncoded 12/28/19 20:54 - Home Medications Home Medications: Ambulatory Orders Acetaminophen [Tylenol] 650 mg PO QID PRN 12/06/19 Albuterol 0.083% Nebulizer Machelle [Ventolin 0.083% Nebulizer Soln -] 1 neb NEB Q6H PRN 12/06/19 Apixaban [Eliquis -] 2.5 mg PO BID 12/06/19 Baclofen 10 mg PO TID 12/06/19 Benzonatate 200 mg PO TID 12/06/19 Budesonide/Formeterol Fumarate [SYMBICORT 160/4.5mcg -] 1 inh PO BID 12/06/19 Chrm/Vineg/Bit-Orang Peel/Gr T [Apple Cider Vinegar Plus Tb] 1 each PO BID 12/06/19 Garlic 1 each PO BID 12/06/19 Insulin (LOG) Aspart [NovoLOG -] 15 units SQ TID 12/06/19 Insulin Degludec [Tresiba Flextouch U-100] 40 unit SQ DAILY 12/06/19 Lidocaine 5% Patch [Lidoderm -] 1 patch TP DAILY 12/06/19 Lisinopril 10 mg PO DAILY 12/06/19 Multivitamin [Multiple Vitamins] 1 each PO DAILY 12/06/19 Tiotropium [place] [Spiriva Respimat] 4 gm IH DAILY 12/06/19 Amlodipine Besylate [Norvasc -] 5 mg PO DAILY tablet 12/19/19 Insulin Sliding Scale [Novolog Vial Sliding Scale -] 1 vial SQ ACHS units 12/19/19 Lactobacillus Acidophilus [Bacid -] 1 tab PO BID tab 12/19/19 Pantoprazole Sodium [Protonix -] 40 mg PO DAILY tablet.ec 12/19/19 Potassium Chloride [K-Dur -] 20 meq PO DAILY tablet.er 12/19/19 metFORMIN HCL [Glucophage -] 850 mg PO BID@0700,1630 tablet 12/19/19 Review of Systems - Review of Systems Constitutional: reports: No Symptoms Eyes: reports: No Symptoms HENT: reports: No Symptoms Neck: reports: No Symptoms Gastrointestinal: reports: No Symptoms Vital Signs: Vital Signs Temperature 98.3 F 12/28/19 20:52 Pulse Rate 81 12/29/19 04:14 Respiratory Rate 18 12/29/19 04:14 Blood Pressure 143/73 12/29/19 04:14 O2 Sat by Pulse Oximetry (%) 100 12/29/19 04:14 Constitutional: Yes: Obese Eyes: Yes: Conjunctiva Clear, EOM Intact HENT: Yes: Normocephalic Neck: Yes: Trachea Midline Respiratory: Yes: CTA Bilaterally Gastrointestinal: Yes: Normal Bowel Sounds, Soft Cardiovascular: Yes: Regular Rate and Rhythm JVD: Yes Carotid Bruit: No PMI: Non-Displaced Heart Sounds: Yes: S1, S2 Musculoskeletal: Yes: WNL Extremities: Yes: WNL Edema: No Peripheral Pulses WNL: Yes - Other Data Labs, Other Data: CBC, BMP 12/29/19 08:20 12/29/19 08:20 INR, PTT INR 1.06 (0.83-1.09) 12/28/19 22:00 Troponin, BNP 12/28/19 12/29/19 22:00 08:20 Troponin I < 0.02 < 0.02 B-Natriuretic Peptide 175.4 H Troponin, BNP 12/28/19 12/29/19 22:00 08:20 Troponin I < 0.02 < 0.02 B-Natriuretic Peptide 175.4 H Imaging - Results Chest X-ray: Report Reviewed EKG: Report Reviewed Assessment/Plan 49 y/o female NHR with a history of Asthma, NIDDM, Diastolic CHF, GRETCHEN, GERD, Pneumonia, Morbid Obesity, on Eliquis ppx, recent admission for 12/13-12/19 CHF, breast abscess. Now presents with sob, edema, orthopnea for several days with chest soreness. No pain. No palpitations dizziness or syncope. Minimally ambulatory. echo [facility] august 2018 TDS normal EF CXR TDS BNP minimally elevated. TnI negative. IMP: -likely a combination of pulmonary disease/atalectasis due to morbid obesity and hypoventilation as well as acute on chronic diastolic CHF -not a candidate for further cardiac testing. -no need for telemetry monitoring -continue IV lasix. -pulmonary evaluation -continue apixaban. -will follow with you.
[2019-12-29] MEDS: INSULIN SLIDING SCALE (NOVOLOG) 1 VIAL SQ SCH ×3 (12:07→23:53)
[2019-12-29] MEDS ORDERED: ALBUTEROL SO4 HFA INHALER IH ONE (17:33)
[2019-12-29] MEDS ORDERED: INSULIN SLIDING SCALE (NOVOLOG) 1 VIAL SQ ONE (17:39)
[2019-12-29] MEDS ORDERED: APIXABAN 2.5 MG TABLET PO SCH (23:27)
[2019-12-29] MEDS ORDERED: INSULIN SLIDING SCALE (NOVOLOG) 1 VIAL SQ SCH (23:29)
[2019-12-30] MEDS: ALBUTEROL SO4 HFA INHALER IH PRN ×2 (00:18→05:31)
[2019-12-30] MEDS ORDERED: ACETAMINOPHEN 325 MG TABLET (FP) PO PRN (01:02)
[2019-12-30 06:06] VITALS: BP 122/54; PULSE 77; TEMP 98.5
[2019-12-30] MEDS ORDERED: INSULIN SLIDING SCALE (NOVOLOG) 1 VIAL SQ SCH (07:00)
[2019-12-30] MEDS ORDERED: PANTOPRAZOLE 40 MG TABLET PO SCH (07:00)
--- NOTE | 2019-12-30 08:10 | DS ---
Physical Examination Vital Signs: Vital Signs Temperature 98.5 F 12/30/19 06:04 Pulse Rate 77 12/30/19 06:04 Respiratory Rate 20 12/30/19 06:04 Blood Pressure 122/54 L 12/30/19 06:04 O2 Sat by Pulse Oximetry (%) 100 12/30/19 06:04 Constitutional: Yes: Mild Distress, Obese Cardiovascular: Yes: Regular Rate and Rhythm Respiratory: Yes: Diminished Gastrointestinal: Yes: Abdomen, Obese Musculoskeletal: Yes: Muscle Weakness Edema: Yes Labs: CBC, BMP 12/29/19 08:20 12/29/19 08:20 Discharge Summary Problems reviewed: Yes Reason For Visit: EXACERBATION OF ASTHMA, CONGESTIVE HEART FAILURE Current Active Problems Asthma (Acute) Asthma exacerbation (Acute) Atypical chest pain (Acute) CHF exacerbation (Acute) GRETCHEN on CPAP (Acute) SOB (shortness of breath) (Acute) Procedures: Principal: cxr, labs covid negative Hospital Course: admitted for resp dostress, sob, chest pain, cardiac workup negative Goals: d/w patient bariatric surgery is recommended for morbid obesity, will need cpap/02 support all times Condition: Improved - Instructions [facility] - Home Medications Comprehensive Discharge Medication List: Ambulatory Orders Acetaminophen [Tylenol] 650 mg PO QID PRN 12/06/19 Albuterol 0.083% Nebulizer Machelle [Ventolin 0.083% Nebulizer Soln -] 1 neb NEB Q6H PRN 12/06/19 Apixaban [Eliquis -] 2.5 mg PO BID 12/06/19 Baclofen 10 mg PO TID 12/06/19 Benzonatate 200 mg PO TID 12/06/19 Budesonide/Formeterol Fumarate [SYMBICORT 160/4.5mcg -] 1 inh PO BID 12/06/19 Chrm/Vineg/Bit-Orang Peel/Gr T [Apple Cider Vinegar Plus Tb] 1 each PO BID 12/06/19 Garlic 1 each PO BID 12/06/19 Insulin (LOG) Aspart [NovoLOG -] 15 units SQ TID 12/06/19 Insulin Degludec [Tresiba Flextouch U-100] 40 unit SQ DAILY 12/06/19 Lidocaine 5% Patch [Lidoderm -] 1 patch TP DAILY 12/06/19 Lisinopril 10 mg PO DAILY 12/06/19 Multivitamin [Multiple Vitamins] 1 each PO DAILY 12/06/19 Tiotropium [place] [Spiriva Respimat] 4 gm IH DAILY 12/06/19 Amlodipine Besylate [Norvasc -] 5 mg PO DAILY tablet 12/19/19 Insulin Sliding Scale [Novolog Vial Sliding Scale -] 1 vial SQ ACHS units 12/19/19 Lactobacillus Acidophilus [Bacid -] 1 tab PO BID tab 12/19/19 Pantoprazole Sodium [Protonix -] 40 mg PO DAILY tablet.ec 12/19/19 Potassium Chloride [K-Dur -] 20 meq PO DAILY tablet.er 12/19/19 metFORMIN HCL [Glucophage -] 850 mg PO BID@0700,1630 tablet 12/19/19
--- NOTE | 2019-12-30 09:07 | EKG ---
Test Reason : Blood Pressure : / mmHG Vent. Rate : 069 BPM Atrial Rate : 069 BPM P-R Int : 130 ms QRS Dur : 072 ms QT Int : 384 ms P-R-T Axes : 053 001 044 degrees QTc Int : 411 ms NORMAL SINUS RHYTHM LOW VOLTAGE QRS BORDERLINE ECG Confirmed by Hang Haile MD ([id number]) on 12/30/2019 9:06:50 AM Referred By: MARK DUNCAN Confirmed By:Hang Haile MD
--- NOTE | 2019-12-30 09:34 | PN ---
Progress Note, Physician History of Present Illness: 49 y/o female NHR with a history of Asthma, NIDDM, Diastolic CHF, GRETCHEN, GERD, Pneumonia, Morbid Obesity, on Eliquis ppx, recent admission for 12/13-12/19 CHF, breast abscess. Now presents with sob, edema, orthopnea for several days with chest soreness. No pain. No palpitations dizziness or syncope. Minimally ambulatory. echo [facility] august 2018 TDS normal EF CXR TDS BNP minimally elevated. TnI negative. - Current Medication List Current Medications: Active Medications Acetaminophen (Tylenol -) 650 mg PO Q6H PRN PRN Reason: PAIN LEVEL 6-10 Last Admin: 12/30/19 01:22 Dose: 650 mg Documented by: Albuterol Sulfate (Ventolin Hfa Inhaler -) 2 puff IH Q4H PRN PRN Reason: SHORT OF BREATH/WHEEZING Last Admin: 12/30/19 05:31 Dose: 2 puff Documented by: Amlodipine Besylate (Norvasc -) 5 mg PO DAILY [facility] Apixaban (Eliquis -) 2.5 mg PO BID SHADI Budesonide/Formoterol Fumarate (Symbicort 160/4.5mcg -) 1 puff IH BID SH[facility]I Furosemide (Lasix -) 20 mg PO DAILY [facility] Insulin Aspart (Novolog Vial Sliding Scale -) 1 vial SQ [facility]; Protocol Last Admin: 12/30/19 06:10 Dose: 8 units Documented by: Lisinopril (Prinivil) 10 mg PO DAILY [facility] Multivitamins/Minerals/Vitamin C (Tab-A-Vit -) 1 tab PO DAILY [facility] Pantoprazole Sodium (Protonix -) 40 mg PO ACBK [facility] Last Admin: 12/30/19 06:10 Dose: 40 mg Documented by: Potassium Chloride (K-Dur -) 20 meq PO DAILY [facility] - Objective Vital Signs: Vital Signs Temperature 98.5 F 12/30/19 06:04 Pulse Rate 77 12/30/19 06:04 Respiratory Rate 20 12/30/19 06:04 Blood Pressure 122/54 L 12/30/19 06:04 O2 Sat by Pulse Oximetry (%) 100 12/30/19 06:04 Constitutional: Yes: No Distress, Calm, Obese Eyes: Yes: Conjunctiva Clear, EOM Intact HENT: Yes: Atraumatic, Normocephalic Neck: Yes: Trachea Midline Cardiovascular: Yes: Regular Rate and Rhythm Respiratory: Yes: CTA Bilaterally Gastrointestinal: Yes: Normal Bowel Sounds, Soft Musculoskeletal: Yes: WNL Extremities: Yes: WNL Edema: No Labs: CBC, BMP 12/29/19 08:20 12/29/19 08:20 INR, PTT INR 1.06 (0.83-1.09) 12/28/19 22:00 Assessment/Plan 49 y/o female NHR with a history of Asthma, NIDDM, Diastolic CHF, GRETCHEN, GERD, Pneumonia, Morbid Obesity, on Eliquis ppx, recent admission for 12/13-12/19 CHF, breast abscess. Now presents with sob, edema, orthopnea for several days with chest soreness. No pain. No palpitations dizziness or syncope. Minimally ambulatory. echo [facility] august 2018 TDS normal EF CXR TDS BNP minimally elevated. TnI negative. IMP: -likely a combination of pulmonary disease/atalectasis due to morbid obesity and hypoventilation as well as acute on chronic diastolic CHF -not a candidate for further cardiac testing. -no need for telemetry monitoring -changed to PO lasix. -pulmonary evaluation noted. -continue apixaban. -will follow with you.
[2019-12-30] MEDS ORDERED: FUROSEMIDE 20 MG TABLET (FP) PO SCH ×2 (10:00)
[2019-12-30] MEDS ORDERED: APIXABAN 2.5 MG TABLET PO SCH (10:00)
[2019-12-30] MEDS ORDERED: POTASSIUM CHLORIDE TABS 20 MEQ TABLET.ER (FP) PO SCH (10:00)
[2019-12-30] MEDS ORDERED: amLODIPine BESYLATE 5 MG TABLET (FP) PO SCH (10:00)
[2019-12-30] MEDS ORDERED: MULTIVITAMINS (DAILY MVI) TABLET (FP) PO SCH (10:00)
[2019-12-30] MEDS ORDERED: BUDESONIDE/FORMETEROL FUMARATE 160/4.5 mcg INHALER IH SCH (10:00)
[2019-12-30] MEDS ORDERED: LISINOPRIL 10 MG TABLET (FP) PO SCH (10:00)
[2019-12-30] MEDS ORDERED: PT OWN MED DRAWER 7, Y5N ONE (10:01)
--- NOTE | 2019-12-30 12:13 | PN ---
Progress Note (short form) - Note Progress Note: Clinically appears stable. Afebrile. Some periods of dry cough. CXR: No acute process / no effusions History of Present Illness: 49 F, well known to me from multiple previous admissions. HTN, DM, LV diastolic dysfunction, asthma, morbid obesity, GRETCHEN on CPAP @ 10 cm H2O, GERD, and recently treated for pneumonia. Admitted via the ER due to progressive shortness of breath and non-specific CP x 3 days. No fever or chills. Some cough with clear sputum. Does report some occasional wheezing. She does report a subjective increase in her leg swelling and abdomen. CXR: Poor film quality / do Not suspect an acute or new process in the LLL - History Source History Provided By: Patient Limitations to Obtaining History: No Limitations - Past Medical History Cardio/Vascular: Yes: CHF, HTN Pulmonary: Yes: Asthma, Bronchitis, Pneumonia, Sleep Apnea. No: Cancer, COPD, O2 Dependent, Previously Intubated, Pulmonary Embolus, Pulmonary Fibrosis Gastrointestinal: Yes: GERD ...LMP: 12/28/19 ...: No - Alcohol/Substance Use Hx Alcohol Use: No History of Substance Use: reports: None - Smoking History Smoking history: Never smoked Have you smoked in the past 12 months: No - Social History ADL: Support Services History of Recent Travel: No Home Medications - Allergies Allergies/Adverse Reactions: Allergies Allergy/AdvReac Type Severity Reaction Status Date / Time Penicillins Allergy Verified 12/28/19 20:54 pollen extracts Allergy Verified 12/28/19 20:54 bees Allergy Uncoded 12/28/19 20:54 kiwi Allergy Uncoded 12/28/19 20:54 - Home Medications Home Medications: Ambulatory Orders Acetaminophen [Tylenol] 650 mg PO QID PRN 12/06/19 Albuterol 0.083% Nebulizer Machelle [Ventolin 0.083% Nebulizer Soln -] 1 neb NEB Q6H PRN 12/06/19 Apixaban [Eliquis -] 2.5 mg PO BID 12/06/19 Baclofen 10 mg PO TID 12/06/19 Benzonatate 200 mg PO TID 12/06/19 Budesonide/Formeterol Fumarate [SYMBICORT 160/4.5mcg -] 1 inh PO BID 12/06/19 Chrm/Vineg/Bit-Orang Peel/Gr T [Apple Cider Vinegar Plus Tb] 1 each PO BID 12/06/19 Garlic 1 each PO BID 12/06/19 Insulin (LOG) Aspart [NovoLOG -] 15 units SQ TID 12/06/19 Insulin Degludec [Tresiba Flextouch U-100] 40 unit SQ DAILY 12/06/19 Lidocaine 5% Patch [Lidoderm -] 1 patch TP DAILY 12/06/19 Lisinopril 10 mg PO DAILY 12/06/19 Multivitamin [Multiple Vitamins] 1 each PO DAILY 12/06/19 Tiotropium [place] [Spiriva Respimat] 4 gm IH DAILY 12/06/19 Amlodipine Besylate [Norvasc -] 5 mg PO DAILY tablet 12/19/19 Insulin Sliding Scale [Novolog Vial Sliding Scale -] 1 vial SQ ACHS units 12/19/19 Lactobacillus Acidophilus [Bacid -] 1 tab PO BID tab 12/19/19 Pantoprazole Sodium [Protonix -] 40 mg PO DAILY tablet.ec 12/19/19 Potassium Chloride [K-Dur -] 20 meq PO DAILY tablet.er 12/19/19 metFORMIN HCL [Glucophage -] 850 mg PO BID@0700,1630 tablet 12/19/19 Review of Systems - Review of Systems Constitutional: denies: Chills, Fever, Loss of Appetite, Malaise, Night Sweats, Unintentional Wgt. Loss Eyes: reports: No Symptoms HENT: reports: No Symptoms Neck: reports: No Symptoms Cardiovascular: reports: Chest Pain, Edema, Shortness of Breath. denies: Palpitations Respiratory: reports: Cough, Orthopnea, PND, Snoring, SOB, SOB on Exertion, Wheezing. denies: Hemoptysis Gastrointestinal: reports: No Symptoms Genitourinary: reports: No Symptoms Breasts: reports: No Symptoms Reported Musculoskeletal: reports: Back Pain Integumentary: reports: No Symptoms Neurological: reports: No Symptoms Endocrine: reports: No Symptoms Hematology/Lymphatic: reports: No Symptoms Psychiatric: reports: No Symptoms Physical Exam Vital Sings: Vital Signs Temperature 97.5 F L 12/29/19 12:00 Pulse Rate 72 12/29/19 12:00 Respiratory Rate 18 12/29/19 12:00 Blood Pressure 145/78 12/29/19 12:00 O2 Sat by Pulse Oximetry (%) 98 12/29/19 09:00 Constitutional: Yes: No Distress, Obese Eyes: Yes: Conjunctiva Clear, EOM Intact HENT: Yes: Atraumatic, Normocephalic Neck: Yes: Supple, Trachea Midline Cardiovascular: Yes: Regular Rate and Rhythm Respiratory: Yes: Diminished, On Nasal O2. No: Accessory Muscle Use, Rales, Rhonchi, SOB, SOB on Exertion, Stridor, Tachypnea, Wheezes ...Inspection: Yes: WNL ...Clubbing: No Gastrointestinal: Yes: Normal Bowel Sounds, Soft, Abdomen, Obese Musculoskeletal: Yes: WNL Extremities: Yes: WNL Edema: Yes Peripheral Pulses WNL: Yes Integumentary: Yes: WNL Neurological: Yes: WNL, Alert, Oriented ...Motor Strength: WNL Psychiatric: Yes: WNL, Alert, Oriented Labs: CBC, BMP 12/29/19 08:20 12/29/19 08:20 Imaging - Results Chest X-ray: Report Reviewed, Image Reviewed Problem List - Problems (1) GRETCHEN on CPAP Code(s): G47.33 - OBSTRUCTIVE SLEEP APNEA (ADULT) (PEDIATRIC); Z99.89 - DEPENDENCE ON OTHER ENABLING MACHINES AND DEVICES (2) Asthma Code(s): J45.909 - UNSPECIFIED ASTHMA, UNCOMPLICATED (3) Atypical chest pain Code(s): R07.89 - OTHER CHEST PAIN (4) CHF exacerbation Code(s): I50.9 - HEART FAILURE, UNSPECIFIED Qualifiers: Heart failure type: unspecified Qualified Code(s): I50.9 - Heart failure, unspecified (5) SOB (shortness of breath) Code(s): R06.02 - SHORTNESS OF BREATH (6) Diabetes mellitus Code(s): E11.9 - TYPE 2 DIABETES MELLITUS WITHOUT COMPLICATIONS (7) GERD (gastroesophageal reflux disease) Code(s): K21.9 - GASTRO-ESOPHAGEAL REFLUX DISEASE WITHOUT ESOPHAGITIS (8) HTN (hypertension) Code(s): I10 - ESSENTIAL (PRIMARY) HYPERTENSION (9) Severe obesity (BMI >= 40) Code(s): E66.01 - MORBID (SEVERE) OBESITY DUE TO EXCESS CALORIES Assessment/Plan IMP: Do not suspect AE of Asthma Do not suspect new respiratory infection Do not have a concern for PE PLAN: BD TX PRN Diuretics Monitor of systemic steroids Monitor off ABX Continue Eliquis CPAP @ 10 cm H2O ordered Needs aggressive weight loss intervention DC planning Will follow Thank you. Dr Medrano Problem List - Problems (1) GRETCHEN on CPAP Code(s): G47.33 - OBSTRUCTIVE SLEEP APNEA (ADULT) (PEDIATRIC); Z99.89 - DEPENDENCE ON OTHER ENABLING MACHINES AND DEVICES (2) Asthma Code(s): J45.909 - UNSPECIFIED ASTHMA, UNCOMPLICATED (3) Atypical chest pain Code(s): R07.89 - OTHER CHEST PAIN (4) CHF exacerbation Code(s): I50.9 - HEART FAILURE, UNSPECIFIED Qualifiers: Heart failure type: unspecified Qualified Code(s): I50.9 - Heart failure, unspecified (5) SOB (shortness of breath) Code(s): R06.02 - SHORTNESS OF BREATH (6) Diabetes mellitus Code(s): E11.9 - TYPE 2 DIABETES MELLITUS WITHOUT COMPLICATIONS (7) GERD (gastroesophageal reflux disease) Code(s): K21.9 - GASTRO-ESOPHAGEAL REFLUX DISEASE WITHOUT ESOPHAGITIS (8) HTN (hypertension) Code(s): I10 - ESSENTIAL (PRIMARY) HYPERTENSION (9) Severe obesity (BMI >= 40) Code(s): E66.01 - MORBID (SEVERE) OBESITY DUE TO EXCESS CALORIES
== END 2019-12-30 11:50 ==
LOC: JER 20:48 → INTOOBSV 12-29 00:05 → UNDOADMOB 12-29 00:05 → JERBED 12-29 00:05 → J4W 12-29 21:01 → J8W 12-29 21:19 → J4W 12-29 21:19 → JERBED 12-30 08:41 → J8W 12-30 08:41 → J4W 12-30 08:41
PROVIDERS: ADMIT Internal Medicine; ATTEND Family Medicine
PROC: 3E0F7GC Introduction of Other Therapeutic Substance into Respiratory Tract, Via Natural or Artificial Opening (ICD-10-PCS; principal; 2019-12-30)
PROC: 3E013VG Introduction of Insulin into Subcutaneous Tissue, Percutaneous Approach (ICD-10-PCS; 2019-12-30)
PROC: 3E033GC Introduction of Other Therapeutic Substance into Peripheral Vein, Percutaneous Approach (ICD-10-PCS; 2019-12-30)
DX: J45.41 Moderate persistent asthma with (acute) exacerbation (principal); E11.9 Type 2 diabetes mellitus without complications; Z68.45 Body mass index [BMI] 70 or greater, adult; I11.0 Hypertensive heart disease with heart failure; E66.01 Morbid (severe) obesity due to excess calories; G47.33 Obstructive sleep apnea (adult) (pediatric); R06.02 Shortness of breath; Z99.81 Dependence on supplemental oxygen; R07.89 Other chest pain; J30.1 Allergic rhinitis due to pollen; Z91.018 Allergy to other foods; Z79.4 Long term (current) use of insulin; Z88.0 Allergy status to penicillin
CPT/HCPCS: 36415; 71045-TC-FY; 80053; 82550; 82553; 82962; 83880; 84484; 85025; 85610; 93005; 93010; 94640; 94660; 96372; 96374; 99285-25; G0378; U0003

== ENCOUNTER 2020-01-10 19:48 | Emergency (ER) | payer OTHER ==
[2020-01-10 20:06] VITALS: TEMP 98.3; BMI 84.6
--- NOTE | 2020-01-10 20:28 | PDOC ---
History of Present Illness - General Chief Complaint: Back Pain Stated Complaint: MUSCLE SPASMS - History of Present Illness Initial Comments: 49 yo female with PMH of Asthma, HTN, IDDM, Diastolic HF is BIBEMS from [facility] for with chief complaint of muscle spasms. Pt says the muscle spasms started this morning, are diffuse throughout her body and worse on her neck, described as cramping. She also endorses shortness of breath and wheezing. She was recently seen at [facility] for pneumonia where they added a new diuretic that she doesn't know the name. She follows with Dr. Robles. Past History - Medical History Allergies/Adverse Reactions: Allergies Allergy/AdvReac Type Severity Reaction Status Date / Time Penicillins Allergy Verified 12/28/19 20:54 pollen extracts Allergy Verified 12/28/19 20:54 bees Allergy Uncoded 12/28/19 20:54 kiwi Allergy Uncoded 12/28/19 20:54 Home Medications: Ambulatory Orders Acetaminophen [Tylenol] 650 mg PO QID PRN 12/06/19 Albuterol 0.083% Nebulizer Machelle [Ventolin 0.083% Nebulizer Soln -] 1 neb NEB Q6H PRN 12/06/19 Apixaban [Eliquis -] 2.5 mg PO BID 12/06/19 Baclofen 10 mg PO TID 12/06/19 Benzonatate 200 mg PO TID 12/06/19 Budesonide/Formeterol Fumarate [SYMBICORT 160/4.5mcg -] 1 inh PO BID 12/06/19 Chrm/Vineg/Bit-Orang Peel/Gr T [Apple Cider Vinegar Plus Tb] 1 each PO BID 12/06/19 Garlic 1 each PO BID 12/06/19 Insulin (LOG) Aspart [NovoLOG -] 15 units SQ TID 12/06/19 Insulin Degludec [Tresiba Flextouch U-100] 40 unit SQ DAILY 12/06/19 Lidocaine 5% Patch [Lidoderm -] 1 patch TP DAILY 12/06/19 Lisinopril 10 mg PO DAILY 12/06/19 Multivitamin [Multiple Vitamins] 1 each PO DAILY 12/06/19 Tiotropium [place] [Spiriva Respimat] 4 gm IH DAILY 12/06/19 Amlodipine Besylate [Norvasc -] 5 mg PO DAILY tablet 12/19/19 Insulin Sliding Scale [Novolog Vial Sliding Scale -] 1 vial SQ ACHS units 12/19/19 Lactobacillus Acidophilus [Bacid -] 1 tab PO BID tab 12/19/19 Pantoprazole Sodium [Protonix -] 40 mg PO DAILY tablet.ec 12/19/19 Potassium Chloride [K-Dur -] 20 meq PO DAILY tablet.er 12/19/19 metFORMIN HCL [Glucophage -] 850 mg PO BID@0700,1630 tablet 12/19/19 Anemia: No Asthma: Yes Cancer: No Cardiac Disorders: Yes CVA: No COPD: No CHF: Yes Dementia: No Diabetes: Yes GI Disorders: Yes (GERD) Disorders: No HTN: Yes Hypercholesterolemia: Yes Liver Disease: No Seizures: No Thyroid Disease: No - Reproductive History Is Patient Now?: No - Psycho-Social/Smoking History Smoking History: Unknown if ever smoked Have you smoked in the past 12 months: No - Substance Abuse Hx (Audit-C & DAST Scrn) How often the patient has a drink containing alcohol: Never Score: In Men: 4 or > Positive; In Women: 3 or > Positive: 0 Screen Result (Pos requires Nsg. Audit-10AR): Negative In the last yr the pt used illegal drug/Rx for NonMed reason: No Score: Yes response is considered Positive: 0 Screen Result (Positive result requires Nsg. DAST-10): Negative Review of Systems - Review of Systems Constitutional: No: Chills, Fever HEENTM: No: Recent change in vision, Double Vision Respiratory: No: Cough, Shortness of Breath Cardiac (ROS): No: Chest Pain, Lightheadedness, Palpitations ABD/GI: No: Diarrhea, Nausea, Vomiting : No: Burning, Dysuria Musculoskeletal: Yes: Other (muscle spasms). No: Back Pain, Muscle Pain Integumentary: No: Bruising, Erythema, Flushing Neurological: No: Headache, Dizziness Psychiatric: No: Anxiety, Depression, Mood Swings Endocrine: No: Intolerance to Cold, Intolerance to Heat Hematologic/Lymphatic: No: Anemia, Easy Bruising *Physical Exam - Vital Signs Last Vital Signs Temp Pulse Resp BP Pulse Ox 98.3 F 92 H 18 109/80 97 01/10/20 20:00 01/10/20 20:00 01/10/20 20:00 01/10/20 20:00 01/10/20 20:00 - Physical Exam General Appearance: Yes: Appropriately Dressed. No: Apparent Distress HEENT: positive: EOMI, BOB, Normal Voice Neck: negative: Tender, Rigid Respiratory/Chest: positive: Lungs Clear, Normal Breath Sounds. negative: Chest Tender, Respiratory Distress, Crackles, Wheezing Cardiovascular: positive: Regular Rhythm, Regular Rate, S1, S2 Gastrointestinal/Abdominal: positive: Flat, Soft. negative: Tender Musculoskeletal: positive: Normal Inspection. negative: CVA Tenderness Extremity: positive: Normal Capillary Refill, Normal Inspection, Normal Range of Motion Integumentary: positive: Normal Color, Dry, Warm Neurologic: positive: Fully Oriented, Alert, Normal Mood/Affect ED Treatment Course - LABORATORY CBC & Chemistry Diagram: 01/10/20 22:30 01/10/20 22:30 Medical Decision Making - Medical Decision Making 49 yo female with PMH of Asthma, HTN, IDDM, Diastolic HF is BIBEMS from [facility] with chief complaint of muscle spasms and shortness of breath Dx: Asthma vs CHF and Electrolyte Abnormalities CBC, CMP, Mg, Phos are normal Duoneb 250mL fluids IV Tylenol Pt says her breathing has improved Pt says her spasms have improved Pt stable for discharge 01/11/20 00:17 Discharge - Discharge Information Problems reviewed: Yes Clinical Impression/Diagnosis: Shortness of breath Condition: Stable Disposition: HOME - Admission No - Follow up/Referral Referrals: Kathy Langford MD [Primary Care Provider] - - Patient Discharge Instructions Additional Instructions: Continue taking your home medications. Follow up with your PCP for further monitoring and workup of your condition. Return to the ED if your symptoms worsen and/or you experience worsening spasms, difficulty breathing, shortness of breath, worsening cough, chest pain, leg pain, leg swelling. - Post Discharge Activity
[2020-01-10] MEDS ORDERED: ALBUTEROL SO4 2.5/IPRATROPIUM 0.5 INH SOL 3 ML VIAL.NEB. NEB ONE ×2 (21:20→21:24)
[2020-01-10 22:42] LABS: HEMATOCRIT 37.8 % (32.4-45.2); HEMOGLOBIN 12.3 GM/dL (10.7-15.3); MCHC 32.5 g/dl (32.0-36.0); MEAN PLT VOLUME 10.8 fl (7.5-11.1); PLATELET COUNT 267 K/MM3 (134-434); RBC 4.55 M/mm3 (3.60-5.2); RDW 15.4 % (11.6-15.6); WHITE BLOOD COUNT 13.5 K/mm3 (4.0-10.0)
[2020-01-10 23:14] LABS: ALBUMIN 3.8 g/dl (3.4-5.0); BILIRUBIN,TOTAL 0.9 mg/dL (0.2-1); CALCIUM 9.1 mg/dL (8.5-10.1); CREATININE 1.1 mg/dL (0.55-1.3); MAGNESIUM 2.1 mg/dL (1.8-2.4); N-TERMINAL BNP 63.9 pg/ml (5-125); PHOSPHOROUS 3.8 mg/dL (2.5-4.9); POTASSIUM 4.6 mmol/L (3.5-5.1); TOT PROT 7.8 g/dl (6.4-8.2)
[2020-01-10] MEDS ORDERED: SODIUM CHLORIDE 250 ML IV STA (23:32)
[2020-01-10] MEDS ORDERED: ACETAMINOPHEN 1000 MG/100 ML VIAL (NON FORMULARY) IVPB ONE (23:32)
[2020-01-10] MEDS ORDERED: ACETAMINOPHEN INJECTION 100 ML IVPB ONE (23:35)
[2020-01-11 00:35] VITALS: BP 118/80; PULSE 65
--- NOTE | 2020-01-11 11:57 | EKG ---
Test Reason : Blood Pressure : / mmHG Vent. Rate : 081 BPM Atrial Rate : 081 BPM P-R Int : 114 ms QRS Dur : 078 ms QT Int : 376 ms P-R-T Axes : 034 -13 037 degrees QTc Int : 436 ms NORMAL SINUS RHYTHM NORMAL ECG WHEN COMPARED WITH ECG OF 30-DEC-2019 08:14, NO SIGNIFICANT CHANGE WAS FOUND Confirmed by SAM ARREGUIN MD ([id number]) on 01/11/2020 11:57:25 AM Referred By: Confirmed By:SAM ARREGUIN MD
--- NOTE | 2020-01-11 22:15 | PDOC ---
Documentation entered by Anh Hare SCRIBE, acting as scribe for Antoine Pennington MD. Antoine Pennington MD: This documentation has been prepared by the memeeAnanya Sydney, SCRIBE, under my direction and personally reviewed by me in its entirety. I confirm that the documentation accurately reflects all work, treatment, procedures, and medical decision making performed by me. Attending Attestation - Resident Resident Name: PurviMary - ED Attending Attestation I have performed the following: I have examined & evaluated the patient, The case was reviewed & discussed with the resident, I agree w/resident's findings & plan, Exceptions are as noted - HPI HPI: 01/10/20 20:58 Patient is a 49 year old female with a significant past medical history of asthma, DM, CHF, GERD, morbid obesity who presents to the ED from [facility] via EMS with muscle spasms. As per patient, her full-body spasms began this morning and are worst in her neck, which she describes as cramping. Patient also reports shortness of breath, however she reports SOB has improved since a recent admission at [facility]. She states she was admitted to [facility] for PNA and was treated with antibiotics and discharged 3 days ago. Of note, pt reports she was initiated on a new water pill while at [facility]. Denies associated CP, increasing LE edema. Denies fever, chills, cough, headache, nausea, vomiting, diarrhea, or urinary changes. Allergies: Penicillins PCP: Dr. Langford - Physicial Exam PE: 01/10/20 22:01 Agree with resident exam - Medical Decision Making 01/10/20 23:02 49yo F with MMP presents with full body spasms x 1 day Vitals wnl, pt is well appearing speaking in full sentences on her phone in the ED w/o resp distress. On exam, lung exam slightly limited due to body habitus but b/l BS auscultated clearly w/o rales, crackles or wheezing. No increased WOB. Medications from [place] paperwork reviewed, it's possible recent addition of torsemide could be causing electrolye disarray explaining subjective spasms, although on exam pt appears comfortable w/o spasms. Pt has normal tone. With regards to SOB, pt states her sxs are much improved since recent DC from admission to [facility] for pneumonia. Given her history however, an EKG was obtained which was wnl. Will check BNP/trop to eval for CHF exacerbation or ischemia and CXR. O2 sat 100% on RA. Plan for labs, pain control, small gentle bolus 250cc in case she is dehydrated from new diuretic and reassess. If pt feels better, anticipate DC back to [place]. Heart Score/ECG Review - History History: Slightly suspicious - Electrocardiogram EKG: Normal - Age Age: 45-65 - Risk Factors Risk Factors Heart Score: Yes Hx Hypertension, Yes Hx Diabetes, Yes Hx Obesity Based on the list above the patient has:: >/=3 risk factors or Hx atherosclerotic disease - Troponin Troponin: </= normal limit - Score Heart Score - Total: 3 Discharge - Discharge Information Problems reviewed: Yes Clinical Impression/Diagnosis: Shortness of breath Condition: Stable Disposition: SNF FACILITY - Follow up/Referral Referrals: Kathy Langford MD [Primary Care Provider] - - Patient Discharge Instructions Additional Instructions: Continue taking your home medications. Follow up with your PCP for further monitoring and workup of your condition. Return to the ED if your symptoms worsen and/or you experience worsening spasms, difficulty breathing, shortness of breath, worsening cough, chest pain, leg pain, leg swelling. - Post Discharge Activity
== END 2020-01-11 02:16 ==
LOC: JER 19:48
PROC: 3E0F7GC Introduction of Other Therapeutic Substance into Respiratory Tract, Via Natural or Artificial Opening (ICD-10-PCS; principal; 2020-01-10)
PROC: 3E033NZ Introduction of Analgesics, Hypnotics, Sedatives into Peripheral Vein, Percutaneous Approach (ICD-10-PCS; 2020-01-10)
PROC: 3E0337Z Introduction of Electrolytic and Water Balance Substance into Peripheral Vein, Percutaneous Approach (ICD-10-PCS; 2020-01-10)
DX: R06.02 Shortness of breath (principal)
CPT/HCPCS: 36415; 71045-TC-FY; 80053; 82550; 83735; 83880; 84100; 84484; 85027; 93005; 93010; 94640; 96361; 96372; 99284-25; J0131

== ENCOUNTER 2020-01-11 02:56 | Emergency (ER) | payer OTHER ==
[2020-01-11] MEDS ORDERED: LIDOCAINE 5% TOPICAL PATCH TP ONE (02:57)
--- NOTE | 2020-01-11 02:58 | PDOC ---
History of Present Illness - General Stated Complaint: FALL History Source: Patient, EMS, Old Records Exam Limitations: No Limitations - History of Present Illness Initial Comments: 49 y/o female was discharged from this facility but returned for evaluation after she fell to the ground. She was in the process of being loaded onto an [facility] transport ambulance when the pt shifted her weight. The EMS crew states they were able to lower her to the right side in a controlled manner. On arrival to the department, the pt is complaining of left sided hip vs lower back pain. Pt agrees that this is the same pain for which she was evaluated and discharged. Pt denies any new pain, including right arm, right side of chest, right side of abdomen, or right lower extremity. Requested another pain killer. Past History - Medical History Allergies/Adverse Reactions: Allergies Allergy/AdvReac Type Severity Reaction Status Date / Time Penicillins Allergy Verified 12/28/19 20:54 pollen extracts Allergy Verified 12/28/19 20:54 bees Allergy Uncoded 12/28/19 20:54 kiwi Allergy Uncoded 12/28/19 20:54 Home Medications: Ambulatory Orders Acetaminophen [Tylenol] 650 mg PO QID PRN 12/06/19 Albuterol 0.083% Nebulizer Machelle [Ventolin 0.083% Nebulizer Soln -] 1 neb NEB Q6H PRN 12/06/19 Apixaban [Eliquis -] 2.5 mg PO BID 12/06/19 Baclofen 10 mg PO TID 12/06/19 Benzonatate 200 mg PO TID 12/06/19 Budesonide/Formeterol Fumarate [SYMBICORT 160/4.5mcg -] 1 inh PO BID 12/06/19 Chrm/Vineg/Bit-Orang Peel/Gr T [Apple Cider Vinegar Plus Tb] 1 each PO BID 12/06/19 Garlic 1 each PO BID 12/06/19 Insulin (LOG) Aspart [NovoLOG -] 15 units SQ TID 12/06/19 Insulin Degludec [Tresiba Flextouch U-100] 40 unit SQ DAILY 12/06/19 Lidocaine 5% Patch [Lidoderm -] 1 patch TP DAILY 12/06/19 Lisinopril 10 mg PO DAILY 12/06/19 Multivitamin [Multiple Vitamins] 1 each PO DAILY 12/06/19 Tiotropium [place] [Spiriva Respimat] 4 gm IH DAILY 12/06/19 Amlodipine Besylate [Norvasc -] 5 mg PO DAILY tablet 12/19/19 Insulin Sliding Scale [Novolog Vial Sliding Scale -] 1 vial SQ ACHS units 12/19/19 Lactobacillus Acidophilus [Bacid -] 1 tab PO BID tab 12/19/19 Pantoprazole Sodium [Protonix -] 40 mg PO DAILY tablet.ec 12/19/19 Potassium Chloride [K-Dur -] 20 meq PO DAILY tablet.er 12/19/19 metFORMIN HCL [Glucophage -] 850 mg PO BID@0700,1630 tablet 12/19/19 Anemia: No Asthma: Yes Cancer: No Cardiac Disorders: Yes CVA: No COPD: No CHF: Yes Dementia: No Diabetes: Yes GI Disorders: Yes (GERD) Disorders: No HTN: Yes Hypercholesterolemia: Yes Liver Disease: No Seizures: No Thyroid Disease: No - Immunization History Td Vaccination: Yes TDAP Vaccination: Yes Immunization Up to Date: Yes - Psycho-Social/Smoking History Smoking History: Never smoked Have you smoked in the past 12 months: No Review of Systems - Review of Systems Respiratory: No: Shortness of Breath Cardiac (ROS): No: Chest Pain ABD/GI: No: Abdominal Distended Musculoskeletal: Yes: Back Pain Integumentary: No: Bruising Neurological: No: Headache *Physical Exam - Physical Exam General Appearance: Yes: Appropriately Dressed. No: Apparent Distress HEENT: positive: Normal Voice Neck: positive: Trachea midline, Other (No midline C-spine tenderness. Able to laterally rotate to R and L >45 degrees.). negative: Tender Respiratory/Chest: positive: Lungs Clear, Normal Breath Sounds. negative: Chest Tender, Respiratory Distress, Accessory Muscle Use Cardiovascular: positive: Regular Rhythm, Regular Rate Musculoskeletal: positive: Other (Moving all four extremities spontaneously. Mild diffuse tenderness to left flank vs left hip. No obvious overlying signs of trauma.). negative: Decreased Range of Motion (No leg length discrepancy.), Vertebral Tenderness Integumentary: positive: Normal Color, Dry, Warm. negative: Bruising Neurologic: positive: Fully Oriented, Alert, Normal Mood/Affect, Normal Response. negative: Facial Droop, Numbness Medical Decision Making - Medical Decision Making 49 y/o female returned to the ED after discharge after fall on EMS stretcher. The fall is described as minor in nature. No complaints on the side of the fall. MSE performed. No obvious signs of trauma. Pt given Lidoderm patch and instructed to remove after 12 hours. Pt discharged back into the care of [facility]. Successfully loaded onto the ambulance without further incident. Case discussed with ED Attending Dr. Lagos. Elgin Koo M.D., PGY3 Emergency Medicine Residency Discharge - Discharge Information Problems reviewed: Yes Clinical Impression/Diagnosis: Left hip pain, Person injured while boarding or alighting from ambulance or fire engine, initial encounter Condition: Good Disposition: HOME - Admission No - Follow up/Referral Referrals: Kathy Langford MD [Primary Care Provider] - - Patient Discharge Instructions Patient Printed Discharge Instructions: DI for Muscle Strain Additional Instructions: You were seen after the EMS stretcher tipped and you were lowered to your right side. Your pain on the left side is not likely related to the fall, and is more likely to be from the chronic pain. You were given a Lidoderm patch. This needs to come off in 12 hours. You need to follow up with your primary care doctor as previously instructed. Follow all of your initial discharge paperwork instructions. Print Language: YAKUT - Post Discharge Activity
[2020-01-11] MEDS ORDERED: LIDOCAINE 5% TOPICAL PATCH ONE (02:59)
--- NOTE | 2020-01-11 03:08 | PDOC ---
Attending Attestation - Resident Resident Name: Elgin Koo - ED Attending Attestation I have performed the following: I have examined & evaluated the patient, The case was reviewed & discussed with the resident, I agree w/resident's findings & plan, Exceptions are as noted - HPI HPI: 01/11/20 03:03 49 yo F here after falling while trying to be lifted into the ambulance. Patient landed on her right side witnessed by EMS. Denies LOC or head trauma. Only complaining of L low back pain which is chronic for her and unchanged since the fall. No other complaints or injuries. - Physicial Exam PE: 01/11/20 03:04 General: well appearing HEENT: NCAT, EOMI Neck: supple, no midline tenderness Back: no paraspinal tenderness Extremities: moving all extremities, warm and well perfused Neuro: Aox3, responds appropriately to questions, no focal deficits - Medical Decision Making 01/11/20 03:07 49 yo F with minor trauma, no injuries or new complaints 2/2 fall, L lower back pain chronic and unchanged from the fall, no indication for additional workup at this time. Plan: -lidoderm patch -d/c with return precautions, recommend supportive care at home and PMD f/u This clinical encounter is taking place during a federal and state health care emergency attributable to the novel [place]e Virus pandemic. The [employer] Inspector of the Department of Health and Human Services has declared, pursuant to the Public Health Service Act 319F-3 (42 U.S.C. 247d-6d), that a covered persons activities related to medical countermeasures against COVID-19 will be immune from liability under Federal and State law. Discharge - Discharge Information Problems reviewed: Yes Clinical Impression/Diagnosis: Left hip pain, Person injured while boarding or alighting from ambulance or fire engine, initial encounter Condition: Good Disposition: HOME - Follow up/Referral Referrals: Kathy Langford MD [Primary Care Provider] - - Patient Discharge Instructions Patient Printed Discharge Instructions: DI for Muscle Strain Additional Instructions: You were seen after the EMS stretcher tipped and you were lowered to your right side. Your pain on the left side is not likely related to the fall, and is more likely to be from the chronic pain. You were given a Lidoderm patch. This needs to come off in 12 hours. You need to follow up with your primary care doctor as previously instructed. Follow all of your initial discharge paperwork instructions. Print Language: MAURITIAN - Post Discharge Activity
[2020-01-11 03:16] VITALS: BP 162/95; PULSE 80; TEMP 98.2; BMI 82.0
[2020-01-11] MEDS ORDERED: LIDOCAINE PATCH REMOVAL MC SCH (22:00)
== END 2020-01-11 03:35 ==
LOC: JER 02:56
DX: M25.552 Pain in left hip (principal)
CPT/HCPCS: 99283-25

== ENCOUNTER 2021-10-20 17:24 | Emergency (ER) | payer OTHER ==
[2021-10-20 18:05] VITALS: PULSE 80; TEMP 98.6; BMI 68.5
[2021-10-20] MEDS ORDERED: MECLIZINE HCL 25 MG TABLET (FP) PO ONE (19:05)
[2021-10-20] MEDS ORDERED: ALBUTEROL SO4 2.5/IPRATROPIUM 0.5 INH SOL 3 ML VIAL.NEB. NEB ONE ×2 (19:05→19:14)
[2021-10-20] MEDS ORDERED: MECLIZINE HCL 25 MG TABLET (FP) ONE (19:14)
[2021-10-20] MEDS ORDERED: ACETAMINOPHEN 500 MG TABLET (FP) PO ONE (19:33)
[2021-10-20] MEDS ORDERED: ACETAMINOPHEN 500 MG TABLET (FP) ONE (19:35)
[2021-10-21 00:04] VITALS: BP 139/71
== END 2021-10-21 00:46 | disposition home or self-care (01) ==
LOC: JER 17:24
PROC: 3E0F7GC Introduction of Other Therapeutic Substance into Respiratory Tract, Via Natural or Artificial Opening (ICD-10-PCS; principal; 2021-10-20)
DX: M25.512 Pain in left shoulder (principal)
CPT/HCPCS: 94640; 99283-25

== ENCOUNTER 2023-09-30 16:40 | Inpatient (IN) | payer OTHER ==
[2023-09-30] MEDS ORDERED: FUROSEMIDE 40 MG/4 ML INJECTABLE VIAL ONE (18:26)
[2023-09-30] MEDS: FUROSEMIDE 40 MG/4 ML INJECTABLE VIAL IVPUSH ONE (18:28)
[2023-09-30 18:32] LABS: VENOUS BASE EXCESS 3.6 mmol/L (-2-2); VENOUS O2 SATURATION 49.5 % (70-80); VENOUS PCO2 61.3 mmHg (38-52); VENOUS PH 7.32 (7.310-7.410)
[2023-09-30 18:42] LABS: BASO % 0.9 % (0-2.0); EOS % 1.9 % (0-4.5); HEMATOCRIT 30.3 % (32.4-45.2); HEMOGLOBIN 9.7 GM/dL (10.7-15.3); LYMPH % 22.7 % (8-40); MCH 26.4 pg (25.7-33.7); MCHC 31.9 g/dl (32.0-36.0); MEAN PLT VOLUME 9.6 fl (7.5-11.1); MONO % 7.3 % (3.8-10.2); NEUT % 67.2 % (42.8-82.8); PLATELET COUNT 253 10^3/uL (134-434); POTASSIUM 4.7 mmol/L (3.5-5.1); RBC 3.65 M/mm3 (3.60-5.2); RDW 15.8 % (11.6-15.6); WHITE BLOOD COUNT 8.5 K/mm3 (4.0-10.0)
[2023-09-30 18:44] LABS: CALCIUM 9.3 mg/dL (8.5-10.1)
[2023-09-30 18:45] LABS: ALBUMIN 3.3 g/dl (3.4-5.0); BLOOD UREA NITROGEN 18.9 mg/dL (7-18)
[2023-09-30 18:46] LABS: ACTIVATED PTT 32.7 SECONDS (25.2-36.5); INR 1.06 (0.83-1.09)
[2023-09-30 18:48] LABS: CREATININE 1.3 mg/dL (0.55-1.3)
[2023-09-30 18:50] LABS: BILIRUBIN,TOTAL 0.5 mg/dL (0.2-1); TOT PROT 7.1 g/dl (6.4-8.2)
[2023-09-30 18:53] LABS: N-TERMINAL BNP 180.8 pg/ml (5-125)
[2023-09-30 19:01] LABS: LACTIC ACID 2.2 mmol/L (0.4-2.0)
[2023-09-30] MEDS ORDERED: VANCOMYCIN 1 GRAM (PRE-DOCKED) 1,000 MG/250 ML BAG IVPB ONE (19:09)
[2023-09-30] MEDS: VANCOMYCIN 1,000 MG in DEXTROSE 5%-WATER - 250 ML IVPB ONE (19:22)
[2023-09-30 20:10] LABS: PH,URINE 5.5 (5.0-8.0); URINE APPEARANCE CLEAR; URINE BILIRUBIN NEGATIVE (NEGATIVE); URINE COLOR YELLOW; URINE GLUCOSE (UA) NEGATIVE (NEGATIVE); URINE KETONE NEGATIVE (NEGATIVE); URINE LEUK ESTERASE NEGATIVE (NEGATIVE); URINE NITRITE NEGATIVE (NEGATIVE); URINE PROTEIN NEGATIVE (NEGATIVE); URINE UROBILINOGEN 0.2 mg/dL (0.2-1.0)
[2023-09-30] MEDS ORDERED: APIXABAN 2.5 MG TABLET ONE (22:04)
[2023-09-30] MEDS: APIXABAN 2.5 MG TABLET PO SCH (22:05)
[2023-09-30] MEDS: INSULIN ASPART SLIDING SCALE (NOVOLOG) 1 VIAL SQ SCH (22:23)
[2023-09-30] MEDS: PIPERACILLIN/TAZOB 3.375 GM 3.375 GM in DEXTROSE 5%-WATER - 50 ML IVPB SCH (22:36)
[2023-09-30] MEDS: VANCOMYCIN HCL 1,500 MG in DEXTROSE 5%-WATER - 250 ML IVPB SCH (22:36)
[2023-09-30] MEDS ORDERED: CEFEPIME 2 GM/100 ML BAG IVPB ONE (22:40)
[2023-09-30] MEDS: CEFEPIME HCL 2 GM VIAL (RESTRICTED TO ID) IVPB SCH (22:58)
[2023-10-01 01:20] VITALS: BMI 85.0
[2023-10-01] MEDS: methylPREDNISolone NA SUCC 40 MG/1 ML VIAL IVPUSH SCH (02:10)
[2023-10-01] MEDS: ACETAMINOPHEN 500 MG TABLET (FP) PO ONE (02:48)
[2023-10-01] MEDS ORDERED: CEFEPIME 2 GM in SODIUM CHLORIDE 100 ML IVPB SCH ×2 (03:00→15:00)
[2023-10-01] MEDS: VANCOMYCIN PREMIX 1.75 GM 1,750 MG/350 ML PIGGYBACK IVPB SCH ×2 (06:52→11:04)
[2023-10-01] MEDS: ALBUTEROL SO4 2.5/IPRATROPIUM 0.5 INH SOL 3 ML VIAL.NEB. NEB ONE (06:56)
[2023-10-01 07:02] LABS: BASO % 0.5 % (0-2.0); EOS % 0.3 % (0-4.5); HEMATOCRIT 30.8 % (32.4-45.2); HEMOGLOBIN 10.1 GM/dL (10.7-15.3); LYMPH % 16.1 % (8-40); MCH 27.1 pg (25.7-33.7); MCHC 32.8 g/dl (32.0-36.0); MEAN CELL VOLUME 82.7 fl (80-96); MEAN PLT VOLUME 9.9 fl (7.5-11.1); MONO % 1.8 % (3.8-10.2); NEUT % 81.3 % (42.8-82.8); PLATELET COUNT 249 10^3/uL (134-434); RBC 3.73 M/mm3 (3.60-5.2); RDW 16.1 % (11.6-15.6); WHITE BLOOD COUNT 7.5 K/mm3 (4.0-10.0)
[2023-10-01 07:16] LABS: CHLORIDE 101 mmol/L (98-107); SODIUM 135 mmol/L (136-145)
[2023-10-01 07:19] LABS: ALBUMIN 3.4 g/dl (3.4-5.0); ANION GAP 4 mmol/L (4-13); CALCIUM 8.9 mg/dL (8.5-10.1); CO2 30 mmol/L (21-32); MAGNESIUM 1.9 mg/dL (1.8-2.4)
[2023-10-01 07:20] LABS: BLOOD UREA NITROGEN 22.7 mg/dL (7-18)
[2023-10-01 07:22] LABS: CREATININE 1.3 mg/dL (0.55-1.3); PHOSPHOROUS 4.3 mg/dL (2.5-4.9); SGOT/AST 9 U/L (15-37)
[2023-10-01 07:24] LABS: SGPT/ALT 22 U/L (13-61)
[2023-10-01 07:27] LABS: ALK PHOS 77 U/L (45-117); BILIRUBIN,TOTAL 0.8 mg/dL (0.2-1); TOT PROT 7.1 g/dl (6.4-8.2)
[2023-10-01 07:31] LABS: GLUCOSE,RANDOM 416 mg/dL (74-106)
[2023-10-01] MEDS: LEVALBUTEROL HCL 0.31 MG/3 ML VIAL.NEB IH SCH (08:36)
[2023-10-01] MEDS: FUROSEMIDE 40 MG/4 ML INJECTABLE VIAL IVPUSH SCH (09:09)
[2023-10-01] MEDS: BUDESONIDE/FORMETEROL FUMARATE 160/4.5 mcg INHALER IH SCH (11:04)
[2023-10-01] MEDS: CEFEPIME HCL 2 GM VIAL (RESTRICTED TO ID) IVPB SCH (11:05)
[2023-10-01] MEDS: INSULIN (LEVEMIR) 100 UNITS/ML UNITS SQ SCH ×2 (12:27→21:19)
[2023-10-01] MEDS: CLINDAMYCIN 600MG PREMIX IVPB 600 MG/50 ML BAG IVPB SCH (12:28)
[2023-10-01] MEDS ORDERED: LIDOCAINE HCL 2% JELLY (30 ML/TUBE) TP PRN (14:03)
[2023-10-01] MEDS: ACETAMINOPHEN 500 MG TABLET (FP) PO PRN (16:24)
[2023-10-01] MEDS: INSULIN (NOVOLOG) ASPART 100 UNITS/ML 10ML VIAL SQ SCH (17:30)
[2023-10-01] MEDS: INSULIN ASPART SLIDING SCALE (NOVOLOG) 1 VIAL SQ SCH (17:32)
[2023-10-01] MEDS: POLYETHYLENE GLYCOL (HEALTHYLAX) 3350 17 GM PACKET PO ONE (21:04)
[2023-10-01] MEDS: GABAPENTIN 300 MG CAPSULE PO SCH (21:27)
[2023-10-02] MEDS: MAG HYDROX/AL HYDROX/SIMETH -MYLANTA- ORAL SUSPENSION PO ONE (02:33)
[2023-10-02 07:19] LABS: HEMATOCRIT 32.4 % (32.4-45.2); HEMOGLOBIN 10.3 GM/dL (10.7-15.3); MCH 26.7 pg (25.7-33.7); MCHC 31.8 g/dl (32.0-36.0); MEAN CELL VOLUME 83.7 fl (80-96); PLATELET COUNT 243 10^3/uL (134-434); RBC 3.87 M/mm3 (3.60-5.2)
[2023-10-02 07:41] LABS: CHLORIDE 100 mmol/L (98-107); POTASSIUM 4.9 mmol/L (3.5-5.1); SODIUM 136 mmol/L (136-145)
[2023-10-02 07:43] LABS: ANION GAP 8 mmol/L (4-13); CALCIUM 9.4 mg/dL (8.5-10.1); CO2 28 mmol/L (21-32)
[2023-10-02 07:44] LABS: BLOOD UREA NITROGEN 28.4 mg/dL (7-18)
[2023-10-02 07:47] LABS: CREATININE 1.4 mg/dL (0.55-1.3)
[2023-10-02 07:48] LABS: GLUCOSE,RANDOM 477 mg/dL (74-106)
[2023-10-02] MEDS ORDERED: INSULIN (LEVEMIR) 100 UNITS/ML UNITS SQ SCH ×2 (08:04)
[2023-10-02] MEDS: INSULIN (LEVEMIR) 100 UNITS/ML UNITS SQ ONE (08:30)
[2023-10-02] MEDS: ENOXAPARIN NA (PORCINE) 40 MG/0.4 ML DISP.SYRIN SQ SCH (10:24)
[2023-10-02] MEDS: DULoxetine HCL 30 MG CAPSULE.DR PO SCH (10:24)
[2023-10-02] MEDS: LOSARTAN POTASSIUM 50 MG TABLET PO SCH (10:25)
[2023-10-02] MEDS ORDERED: INSULIN (NOVOLOG) ASPART 100 UNITS/ML 10ML VIAL SQ SCH (11:40)
[2023-10-02] MEDS ORDERED: ACETAMINOPHEN 500 MG TABLET (FP) PO PRN (15:52)
[2023-10-02] MEDS ORDERED: LIDOCAINE HCL 2% JELLY (30 ML/TUBE) TP PRN (15:52)
[2023-10-02] MEDS: CLINDAMYCIN 600MG PREMIX IVPB 600 MG/50 ML BAG IVPB SCH (17:41)
[2023-10-02] MEDS: INSULIN ASPART SLIDING SCALE (NOVOLOG) 1 VIAL SQ SCH (17:44)
[2023-10-02] MEDS: INSULIN (NOVOLOG) ASPART 100 UNITS/ML 10ML VIAL SQ SCH (17:45)
[2023-10-02] MEDS: LEVALBUTEROL HCL 0.31 MG/3 ML VIAL.NEB IH SCH (19:43)
[2023-10-02] MEDS: INSULIN (LEVEMIR) 100 UNITS/ML UNITS SQ SCH (21:09)
[2023-10-02] MEDS: GABAPENTIN 300 MG CAPSULE PO SCH (21:15)
[2023-10-02] MEDS: BUDESONIDE/FORMETEROL FUMARATE 160/4.5 mcg INHALER IH SCH (21:40)
[2023-10-03] MEDS: INSULIN (LEVEMIR) 100 UNITS/ML UNITS SQ SCH (06:02)
[2023-10-03] MEDS ORDERED: INSULIN (NOVOLOG) ASPART 100 UNITS/ML 10ML VIAL ONE ×2 (06:36→21:51)
[2023-10-03 08:00] LABS: HEMOGLOBIN 10.3 GM/dL (10.7-15.3); MCH 26.5 pg (25.7-33.7); MCHC 32.1 g/dl (32.0-36.0); MEAN CELL VOLUME 82.5 fl (80-96); PLATELET COUNT 268 10^3/uL (134-434); RBC 3.88 M/mm3 (3.60-5.2); RDW 16.2 % (11.6-15.6); WHITE BLOOD COUNT 11.6 K/mm3 (4.0-10.0)
[2023-10-03 08:10] LABS: POTASSIUM 4.4 mmol/L (3.5-5.1)
[2023-10-03 08:18] LABS: CALCIUM 9.8 mg/dL (8.5-10.1)
[2023-10-03 08:20] LABS: ALBUMIN 3.5 g/dl (3.4-5.0)
[2023-10-03 08:23] LABS: CREATININE 1.2 mg/dL (0.55-1.3)
[2023-10-03 08:24] LABS: BILIRUBIN,TOTAL 0.4 mg/dL (0.2-1)
[2023-10-03 09:39] LABS: TOT PROT 7.4 g/dl (6.4-8.2)
[2023-10-03] MEDS: FUROSEMIDE 40 MG/4 ML INJECTABLE VIAL IVPB SCH (10:20)
[2023-10-03] MEDS: ENOXAPARIN NA (PORCINE) 40 MG/0.4 ML DISP.SYRIN SQ SCH (10:20)
[2023-10-03] MEDS: DULoxetine HCL 30 MG CAPSULE.DR PO SCH (10:20)
[2023-10-03] MEDS: LOSARTAN POTASSIUM 50 MG TABLET PO SCH (10:21)
[2023-10-03] MEDS: LIDOCAINE 5% TOPICAL PATCH TP SCH (14:59)
[2023-10-03] MEDS: DOXYCYCLINE HYCLATE 100 MG CAPSULE PO SCH (15:01)
[2023-10-03] MEDS: FUROSEMIDE 40 MG TABLET (FP) PO SCH (15:11)
[2023-10-03 15:40] VITALS: RESP 18
[2023-10-03] MEDS: POLYETHYLENE GLYCOL (HEALTHYLAX) 3350 17 GM PACKET PO SCH (17:59)
[2023-10-03] MEDS: INSULIN ASPART SLIDING SCALE (NOVOLOG) 1 VIAL SQ SCH (18:00)
[2023-10-03] MEDS: MAG HYDROX/AL HYDROX/SIMETH 30 ML UNIT-DOSE CUP PO ONE (22:02)
[2023-10-03] MEDS: DEXAMETHASONE 0.5 MG TABLET PO ONE (22:03)
[2023-10-03] MEDS: LIDOCAINE PATCH REMOVAL MC SCH (22:05)
[2023-10-04] MEDS: EMPAGLIFLOZIN (JARDIANCE) 10 MG TABLET PO SCH (06:12)
[2023-10-04 10:39] VITALS: BP 135/70; PULSE 59; TEMP 98.2
[2023-10-04] MEDS ORDERED: INSULIN (NOVOLOG) ASPART 100 UNITS/ML 10ML VIAL ONE (12:48)
== END 2023-10-04 13:00 | disposition home or self-care (01) | DRG 291 ==
LOC: JER 16:40 → JERBED 19:08 → J2W 10-01 01:00 → J4S 10-02 00:33 → J8W 10-02 14:36
PROVIDERS: ADMIT Internal Medicine; ATTEND Nurse Practitioner Family
DX: I11.0 Hypertensive heart disease with heart failure (principal); I50.33 Acute on chronic diastolic (congestive) heart failure; J96.21 Acute and chronic respiratory failure with hypoxia; L03.115 Cellulitis of right lower limb; J44.1 Chronic obstructive pulmonary disease with (acute) exacerbation; N17.9 Acute kidney failure, unspecified; L03.116 Cellulitis of left lower limb; E66.2 Morbid (severe) obesity with alveolar hypoventilation; Z68.45 Body mass index [BMI] 70 or greater, adult; J98.11 Atelectasis; J45.41 Moderate persistent asthma with (acute) exacerbation; E11.65 Type 2 diabetes mellitus with hyperglycemia; I27.20 Pulmonary hypertension, unspecified; E78.00 Pure hypercholesterolemia, unspecified; K21.9 Gastro-esophageal reflux disease without esophagitis; D64.9 Anemia, unspecified; Z88.0 Allergy status to penicillin
CPT/HCPCS: 0241U-QW; 36415; 71045-TC-FY; 80048; 80053; 81003; 82803; 82962; 83036; 83605; 83735; 83880; 84100; 84484; 85025; 85027; 85610; 85651; 85730; 86140; 87086; 93005; 93010; 93306-TC; 94640; 94660; 97116-GP; 97162-GP; 99285-25; J3370

== ENCOUNTER 2023-10-08 16:20 | Emergency (ER) | payer OTHER ==
[2023-10-08 17:06] VITALS: BP 93/70; PULSE 100; RESP 20; TEMP 98.2; BMI 63.5
[2023-10-08 19:00] LABS: VENOUS BASE EXCESS 6.4 mmol/L (-2-2); VENOUS O2 SATURATION 66.7 % (70-80); VENOUS PCO2 55.3 mmHg (38-52); VENOUS PH 7.39 (7.310-7.410)
[2023-10-08 19:01] LABS: BASO % 1.3 % (0-2.0); EOS % 2.6 % (0-4.5); HEMATOCRIT 34.4 % (32.4-45.2); HEMOGLOBIN 11.2 GM/dL (10.7-15.3); LYMPH % 29.3 % (8-40); MCH 26.8 pg (25.7-33.7); MCHC 32.7 g/dl (32.0-36.0); MEAN CELL VOLUME 82.1 fl (80-96); MEAN PLT VOLUME 10.1 fl (7.5-11.1); MONO % 8.6 % (3.8-10.2); NEUT % 58.2 % (42.8-82.8); PLATELET COUNT 245 10^3/uL (134-434); RBC 4.18 M/mm3 (3.60-5.2); RDW 16.4 % (11.6-15.6); WHITE BLOOD COUNT 7.8 K/mm3 (4.0-10.0)
[2023-10-08 19:09] LABS: INR 0.98 (0.83-1.09); PROTHROMBIN TIME (PATIENT) 11.3 SEC (9.7-13.0)
[2023-10-08 19:11] LABS: ACTIVATED PTT 32.8 SECONDS (25.2-36.5)
[2023-10-08 19:27] LABS: POTASSIUM 4.6 mmol/L (3.5-5.1)
[2023-10-08 19:30] LABS: ALBUMIN 3.8 g/dl (3.4-5.0); BLOOD UREA NITROGEN 31.1 mg/dL (7-18); CALCIUM 9.6 mg/dL (8.5-10.1); MAGNESIUM 2.6 mg/dL (1.8-2.4)
[2023-10-08 19:33] LABS: BILIRUBIN,TOTAL 0.5 mg/dL (0.2-1); CREATININE 1.4 mg/dL (0.55-1.3)
[2023-10-08 19:35] LABS: TOT PROT 7.5 g/dl (6.4-8.2)
[2023-10-08 19:38] LABS: N-TERMINAL BNP 243.1 pg/ml (5-125)
[2023-10-08] MEDS ORDERED: ALBUTEROL SO4 2.5/IPRATROPIUM 0.5 INH SOL 3 ML VIAL.NEB. NEB ONE (19:39)
[2023-10-08] MEDS: ALBUTEROL SO4 0.083% IH SOL 2.5 MG/3 ML VIAL.NEB. NEB ONE (19:59)
== END 2023-10-09 01:32 | disposition home or self-care (01) ==
LOC: JER 16:20
PROC: 3E0F7GC Introduction of Other Therapeutic Substance into Respiratory Tract, Via Natural or Artificial Opening (ICD-10-PCS; principal; 2023-10-08)
DX: R06.02 Shortness of breath (principal); R11.10 Vomiting, unspecified; R07.89 Other chest pain; Z20.822 Contact with and (suspected) exposure to COVID-19
CPT/HCPCS: 0241U-QW; 36415; 71045-TC-FY; 80053; 82010; 82803; 83690; 83735; 83880; 84484; 84703; 85025; 85610; 85730; 86850; 86900; 86901; 93005; 93010; 99285-25

== ENCOUNTER 2023-10-17 18:30 | Emergency (ER) | payer OTHER ==
[2023-10-17 19:06] VITALS: TEMP 98; BMI 73.7
[2023-10-17] MEDS ORDERED: ALBUTEROL SO4 2.5/IPRATROPIUM 0.5 INH SOL 3 ML VIAL.NEB. NEB SCH (19:45)
[2023-10-17] MEDS ORDERED: ALBUTEROL SO4 2.5/IPRATROPIUM 0.5 INH SOL 3 ML VIAL.NEB. NEB ONE (19:48)
[2023-10-17] MEDS: ALBUTEROL SO4 2.5/IPRATROPIUM 0.5 INH SOL 3 ML VIAL.NEB. NEB SCH (20:00)
[2023-10-17] MEDS ORDERED: methylPREDNISolone NA SUCC 125 MG/2 ML VIAL ONE (20:20)
[2023-10-17] MEDS: methylPREDNISolone NA SUCC 125 MG/2 ML VIAL IVPB ONE (20:31)
[2023-10-17 20:32] LABS: VENOUS BASE EXCESS 1.8 mmol/L (-2-2); VENOUS O2 SATURATION 31.1 % (70-80); VENOUS PCO2 59.1 mmHg (38-52); VENOUS PH 7.313 (7.310-7.410)
[2023-10-17 20:34] LABS: BASO % 0.5 % (0-2.0); EOS % 0.5 % (0-4.5); HEMATOCRIT 35.6 % (32.4-45.2); HEMOGLOBIN 11.1 GM/dL (10.7-15.3); LYMPH % 14.2 % (8-40); MCH 26.2 pg (25.7-33.7); MCHC 31.3 g/dl (32.0-36.0); MEAN CELL VOLUME 83.5 fl (80-96); MEAN PLT VOLUME 9.4 fl (7.5-11.1); MONO % 5.8 % (3.8-10.2); PLATELET COUNT 269 10^3/uL (134-434); RBC 4.26 M/mm3 (3.60-5.2); RDW 16.5 % (11.6-15.6)
[2023-10-17 20:55] LABS: POTASSIUM 4.6 mmol/L (3.5-5.1)
[2023-10-17 20:57] LABS: CALCIUM 9.6 mg/dL (8.5-10.1)
[2023-10-17 20:58] LABS: ALBUMIN 4.2 g/dl (3.4-5.0); BLOOD UREA NITROGEN 25.1 mg/dL (7-18); MAGNESIUM 2.6 mg/dL (1.8-2.4)
[2023-10-17 21:00] LABS: PHOSPHOROUS 3.2 mg/dL (2.5-4.9)
[2023-10-17 21:01] LABS: CREATININE 1.5 mg/dL (0.55-1.3)
[2023-10-17 21:02] LABS: BILIRUBIN,TOTAL 0.6 mg/dL (0.2-1)
[2023-10-17 21:06] LABS: N-TERMINAL BNP 167.8 pg/ml (5-125)
[2023-10-17 22:38] LABS: URINE APPEARANCE CLEAR; URINE BILIRUBIN NEGATIVE (NEGATIVE); URINE COLOR YELLOW; URINE GLUCOSE (UA) 3+ (NEGATIVE); URINE KETONE NEGATIVE (NEGATIVE); URINE LEUK ESTERASE NEGATIVE (NEGATIVE); URINE NITRITE NEGATIVE (NEGATIVE); URINE PROTEIN NEGATIVE (NEGATIVE); URINE UROBILINOGEN 0.2 mg/dL (0.2-1.0)
[2023-10-17] MEDS ORDERED: ACETAMINOPHEN 500 MG TABLET (FP) ONE (23:54)
[2023-10-17] MEDS: ACETAMINOPHEN 500 MG TABLET (FP) PO ONE (23:59)
[2023-10-18] MEDS ORDERED: INSULIN ASPART SLIDING SCALE (NOVOLOG) 1 VIAL SQ ONE ×2 (04:32→07:49)
[2023-10-18] MEDS: INSULIN (NOVOLOG) ASPART 100 UNITS/ML 10ML VIAL SQ ONE ×2 (04:45→08:57)
[2023-10-18 06:36] VITALS: BP 144/86; PULSE 104; RESP 20
== END 2023-10-18 09:55 | disposition home or self-care (01) ==
LOC: JER 18:30
PROC: 3E033GC Introduction of Other Therapeutic Substance into Peripheral Vein, Percutaneous Approach (ICD-10-PCS; principal; 2023-10-17)
PROC: 3E013VG Introduction of Insulin into Subcutaneous Tissue, Percutaneous Approach (ICD-10-PCS; 2023-10-17)
PROC: 3E0F7GC Introduction of Other Therapeutic Substance into Respiratory Tract, Via Natural or Artificial Opening (ICD-10-PCS; 2023-10-17)
PROC: 3E013VG Introduction of Insulin into Subcutaneous Tissue, Percutaneous Approach (ICD-10-PCS; 2023-10-18)
DX: J45.901 Unspecified asthma with (acute) exacerbation (principal); R06.02 Shortness of breath; E11.65 Type 2 diabetes mellitus with hyperglycemia; Z79.4 Long term (current) use of insulin; R10.13 Epigastric pain; G89.29 Other chronic pain
CPT/HCPCS: 36415; 71045-TC-FY; 80053; 81003; 82010; 82803; 82962; 83690; 83735; 83880; 84100; 84484; 84703; 85025; 87086; 87186; 93005; 93010; 99285-25